=== PATIENT | male | born 1935 | race Caucasian/White ===

== ENCOUNTER 2018-02-16 14:45 | Outpatient (CLI) | payer MEDICARE, OTHER ==
--- NOTE | 2018-02-16 16:38 | XRAY Preliminary Report ---
Exam: XR THORACIC SPINE 2 VIEW IMPRESSION: 1. Progression of moderate degenerative disk disease and diffuse idiopathic skeletal hyperostosis. 2. Stable old mild wedging inferior two thirds of the mildly kyphotic spine. [facility] SITE ID: [id number]
--- NOTE | 2018-02-16 16:48 | XRAY Report ---
EXAM: THORACIC SPINE RADIOGRAPHY EXAM DATE: 02/16/2018 03:36 PM. CLINICAL HISTORY: Fall 6 months ago. Upper back and right shoulder pain. COMPARISON: Two-view chest x-ray 09/09/2014. TECHNIQUE: 2 views. FINDINGS: Alignment: Stable mild kyphosis centered at T7. Bones: Stable old mild anterior wedging inferior two-thirds thoracic spine. Greatest degree of wedging is T7 . No acute trabecular cortical disruption. Disks: Progression of moderate degenerative disk disease and diffuse idiopathic skeletal hyperostosis involving the inferior two-thirds of the thoracic spine, now with incomplete fusion inferior third. Extremely large osteophyte extending off the right side inferior endplate T9. Soft Tissues: Normal. The visualized lungs and cardiomediastinal silhouette are normal. IMPRESSION: 1. Progression of moderate degenerative disk disease and diffuse idiopathic skeletal hyperostosis. 2. Stable old mild wedging inferior two thirds of the mildly kyphotic spine. [facility] Referring Provider Line: [phone] SITE ID: [id number]
--- NOTE | 2018-02-16 16:53 | XRAY Preliminary Report ---
Exam: XR CERVICAL SPINE 2 VIEW IMPRESSION: 1. Note that the AP odontoid view(s) not diagnostic. If there is concern regarding a fracture,dedicat ed CT cervical spine should be considered. 2. Multilevel moderate degenerative disk disease, less than expected for age. [facility] SITE ID: [id number]
--- NOTE | 2018-02-16 17:00 | XRAY Preliminary Report ---
Exam: XR SHOULDER 3 VIEW RT IMPRESSION: 1. No posttraumatic bony abnormality. 2. Moderate degenerative changes. 3. Calcific tendinitis. Number for mild narrowing subacromial space raises the possibility of rotator cuff tendinopathy or tear. [facility] SITE ID: [id number]
--- NOTE | 2018-02-16 17:00 | XRAY Report ---
EXAM: CERVICAL SPINE RADIOGRAPHY EXAM DATE: 02/16/2018 03:35 PM. CLINICAL HISTORY: Fall 6 months ago. Neck pain. COMPARISONS: None. TECHNIQUE: 4 views. FINDINGS: Alignment: 3 mm degenerative anterior subluxation C4 on C5. Bones: The cervical vertebral bodies and posterior elements are well visualized from the skull base t hrough C7-T1. No fractures or bone lesions. Note that the AP odontoid views are not diagnostic. Disks: Moderate narrowing of the disk spaces with small osteophytes and minimal subcortical sclerosis throughout the cervical spine. Facets: Moderate degenerative changes right C3-C4 facet. Soft Tissues: Normal. No prevertebral soft tissue swelling. The visualized lung apices are clear. IMPRESSION: 1. Note that the AP odontoid view(s) is not diagnostic. If there is concern regarding a fracture, ded icated CT cervical spine should be considered. 2. Multilevel moderate degenerative disk disease, less than expected for age. [facility] Referring Provider Line: [phone] SITE ID: [id number]
--- NOTE | 2018-02-16 17:11 | XRAY Report ---
EXAM: RIGHT SHOULDER RADIOGRAPHY EXAM DATE: 02/16/2018 03:36 PM. CLINICAL HISTORY: Fall 6 months ago. Right shoulder pain. COMPARISON: None. TECHNIQUE: 3 views. FINDINGS: Bones: Osteopenia. No fracture or bone lesion. Joints: Small osteophytes with moderate subcortical sclerosis at the acromioclavicular joint. Type II acromion. Moderate osteophytes with mild subcortical sclerosis at the moderately narrowed glenohumer al joint. Moderate narrowing of the subacromial space. Soft tissues: The visualized hemithorax is unremarkable. Dystrophic calcifications within the suprasp inatus tendon. IMPRESSION: 1. No posttraumatic bony abnormality. 2. Moderate degenerative changes. 3. Calcific tendinitis. 4. Mild narrowing subacromial space raises the possibility of rotator cuff tendinopathy or tear. [facility] Referring Provider Line: [phone] SITE ID: [id number]
== END 2018-02-16 14:46 | disposition home or self-care (01) ==
LOC: DI 14:45
PROVIDERS: ATTEND Chiropractor
DX: M51.34 Other intervertebral disc degeneration, thoracic region (principal); M40.294 Other kyphosis, thoracic region; M50.31 Other cervical disc degeneration, high cervical region; M47.892 Other spondylosis, cervical region; M43.12 Spondylolisthesis, cervical region; M19.011 Primary osteoarthritis, right shoulder; M75.31 Calcific tendinitis of right shoulder
CPT/HCPCS: 72040; 72070

== ENCOUNTER 2019-03-01 08:00 | Outpatient (CLI) | payer MEDICARE, OTHER ==
[2019-03-01 10:04] LABS: ALBUMIN 3.9 g/dL (3.2-5.5); ALBUMIN/GLOBULIN RATIO 1.3 (1.0-2.2); ALKALINE PHOSPHATASE 68 IU/L (42-121); ALT ALANINE AMINOTRANSFERASE 23 IU/L (10-60); AST ASPARTATE AMINOTRANSFERASE 28 IU/L (10-42); BILIRUBIN,TOTAL 0.8 mg/dL (0.2-1.0); BUN - BLOOD UREA NITROGEN 17 mg/dL (6-20); CALCIUM 8.9 mg/dL (8.5-10.3); CARBON DIOXIDE - CO2 24 mmol/L (21-32); CHLORIDE 100 mmol/L (101-111); CHOLESTEROL 183 mg/dL; CREATININE 0.8 mg/dL (0.6-1.2); GFR - MDRD 93 (>89); GLUCOSE 98 mg/dL (70-100); HDL CHOLESTEROL 62 mg/dL; LDL CHOLESTEROL,CALCULATED 103 mg/dL; LDL/HDL RATIO 1.7 (<3.6); SODIUM 135 mmol/L (135-145); VLDL CHOLESTEROL 18 mg/dL
[2019-03-01 11:26] LABS: THYROID STIMULATING HORMONE 4.45 uIU/mL (0.34-5.60)
[2019-03-01 11:29] LABS: FREE T4 (FREE THYROXINE) 1.08 ng/dL (0.58-1.64)
== END 2019-03-01 23:59 | disposition home or self-care (01) ==
LOC: LAB 08:00
PROVIDERS: ATTEND Physician Assistant
DX: E53.8 Deficiency of other specified B group vitamins (principal); E03.9 Hypothyroidism, unspecified; E78.2 Mixed hyperlipidemia; I10 Essential (primary) hypertension; E55.9 Vitamin D deficiency, unspecified
CPT/HCPCS: 36415; 80053; 80061; 82306; 82607; 83721; 84439; 84443

== ENCOUNTER 2019-08-09 06:45 | Outpatient (CLI) | payer MEDICARE, OTHER | END 2019-08-09 06:46 | disposition critical access hospital (66) | LOC: EMS 06:45 | PROVIDERS: ATTEND Surgery | DX: R53.1 Weakness (principal); R06.02 Shortness of breath | CPT/HCPCS: A0425; A0427 ==

== ENCOUNTER 2019-08-09 06:58 | Observation (INO) | payer MEDICARE, OTHER ==
--- NOTE | 2019-08-09 07:24 | ED Physician Documentation ---
PD HPI DYSPNEA - Stated complaint Stated Complaint: PNA, NOT IMPROVING - Chief complaint Chief Complaint: Resp - History obtained from History obtained from: Patient, EMS - History of Present Illness Timing - onset: How many days ago (6) Timing - duration: Days (6) Timing - details: Gradual onset, Still present (Worsened even more in the last 2 days and today having considerable wheezing with noted hypoxia at home of 88 to 90% and general weakness. Denies chest pain or leg edema.) Inciting event(s): URI Improved by: Inhaler/neb, Sitting up Worsened by: Exertion, Coughing Similar symptoms before: Diagnosis (copd but does not have chronic dyspnea. Does not use home oxygen nor CPAP. Nebs BID keeps him stable. Has been awhile since ill with dyspnea.) Recently seen: Clinic (2 days ago, with Rx for Zpak and prednisone 40 mg day one then 20 mg daily.) Review of Systems Constitutional: reports: Chills, Myalgias, Fatigue (having difficulty getting himself up from bed this morning due to general weakness.). denies: Fever Nose: reports: Congestion. denies: Rhinorrhea / runny nose Throat: denies: Sore throat Cardiac: denies: Chest pain / pressure, Palpitations, Pedal edema, Calf pain Respiratory: reports: Dyspnea, Cough, Wheezing GI: reports: Nausea (mild with lessa ppetite). denies: Abdominal Pain, Vomiting, Diarrhea : denies: Dysuria, Frequency Skin: denies: Rash Neurologic: reports: Generalized weakness. denies: Focal weakness, Numbness, Near syncope, Confused, Altered mental status, Headache Psychiatric: denies: Anxiety Endocrine: denies: Weight loss Immunocompromised: denies: Immunocompromised PD PAST MEDICAL HISTORY - Past Medical History Cardiovascular: None Respiratory: Emphysema Endocrine/Autoimmune: HyPOthyroidism Psych: Anxiety - Past Surgical History Past Surgical History: Yes Ortho: Arthroscopic surgery - Present Medications Home Medications: Ambulatory Orders Medication Instructions Recorded Confirmed Levothyroxine Sodium [Tirosint] 125 mcg PO DAILY 01/29/13 08/09/19 Cyanocobalamin (Vitamin B-12) 2,500 mcg SL DAILY 02/28/13 02/28/13 [Vitamin B-12] predniSONE [Deltasone] 20 mg PO BID MDD x 5 days (on day 02/28/13 08/09/19 3 per Pt) Furosemide [Lasix] 40 mg PO DAILY 04/03/13 08/09/19 Potassium Chloride [Micro-K] 04/03/13 04/03/13 Arformoterol Tartrate [Brovana] 15 mcg NEB DAILY 08/09/19 08/09/19 Azithromycin 250 mg PO DAILY 08/09/19 08/09/19 Budesonide 1 inh INH BID 08/09/19 08/09/19 Ipratropium/Albuterol [Duoneb] 3 ml INH DAILY 08/09/19 08/09/19 Sertraline HCl 100 mg PO DAILY 08/09/19 08/09/19 clonazePAM [Clonazepam] 0.5 - 1 mg PO DAILY PRN 08/09/19 08/09/19 - Allergies Allergies/Adverse Reactions: Allergies Allergy/AdvReac Type Severity Reaction Status Date / Time No Known Drug Allergies Allergy Verified 01/29/13 17:51 - Social History Does the pt smoke?: No Smoking Status: Never smoker Does the pt drink ETOH?: Yes Does the pt have substance abuse?: No - Family History Family history: reports: CAD. denies: Sudden - Immunizations Immunizations are current?: Yes PD ED PE NORMAL - Vitals Vital signs reviewed: Yes - General General: Alert and oriented X 3, Well developed/nourished, Other (talking mostly complete sentences, but tachypneic and with audible wheezing and some accessory muscle use. ) - HEENT HEENT: Moist mucous membranes, Pharynx benign - Neck Neck: Supple, no meningeal sign, No adenopathy - Cardiac Cardiac: RRR, No murmur - Respiratory Respiratory: No: Clear bilaterally (coarse left side mid to lower and with diffuse moderate to marked wheezing holoexpiratory. ) - Abdomen Abdomen: Soft, Non tender - Male Male : Deferred - Rectal Rectal: Deferred - Back Back: No CVA TTP - Derm Derm: Normal color, Warm and dry - Extremities Extremities: No tenderness to palpate, Normal ROM s pain, No edema, No calf tenderness / cord - Neuro Neuro: Alert and oriented X 3, No motor deficit. No: Normal speech Eye Opening: Spontaneous Motor: Obeys Commands Verbal: Oriented GCS Score: 15 - Psych Psych: Normal mood Results - Vitals Vitals: Vital Signs - 24 hr 08/09/19 08/09/1919 07:03 07:30 07:54 Temperature 37.1 C Heart Rate 106 H 101 H 112 H Respiratory 15 22 27 H Rate Blood Pressure 113/75 114/59 L O2 Saturation 95 94 08/09/19 08/09/19 08/09/19 07:55 08:00 08:30 Temperature Heart Rate 99 97 107 H Respiratory 22 22 24 Rate Blood Pressure 114/59 L 108/65 94/77 O2 Saturation 97 94 95 08/09/19 08/09/19 09:00 09:11 Temperature Heart Rate 117 H 103 H Respiratory 24 28 H Rate Blood Pressure 127/62 127/62 O2 Saturation 89 L 92 Oxygen O2 Source Nasal cannula Oxygen Flow Rate 2 - EKG (time done) 07:04 Rate: Rate (enter#) (107) Rhythm: Sinus tachycardia [place]: Normal Intervals: Wide QRS QRS: Normal Ischemia: Normal ST segments, Non specific changes. No: ST elevation c/w ischemia Compare to prior EKG: Unchanged from prior EKG - Labs Labs: Laboratory Tests 08/09/19 08/09/19 08/09/19 08:08 08:08 08:08 WBC 13.4 H RBC 3.83 L Hgb 12.5 L Hct 37.7 L MCV 98.4 H MCH 32.6 H MCHC 33.2 RDW 13.5 Plt Count 240 MPV 9.4 Neut # (Auto) 11.5 H Lymph # (Auto) 0.8 L [place] # (Auto) 1.0 Eos # (Auto) 0.0 Baso # (Auto) 0.0 Absolute Nucleated RBC 0.00 Nucleated RBC % 0.0 Sodium 135 Potassium 3.8 Chloride 96 L Carbon Dioxide 31 Anion Gap 8.0 BUN 20 Creatinine 0.9 Estimated GFR (MDRD) 81 L Glucose 106 H Lactic Acid Calcium 8.6 Total Bilirubin 0.5 AST 41 ALT 36 Alkaline Phosphatase 51 Troponin I High Sens 35.8 H* B-Natriuretic Peptide Total Protein 6.9 Albumin 3.9 Globulin 3.0 Albumin/Globulin Ratio 1.3 Lipase 26 08/09/19 08/09/19 08:08 08:08 WBC RBC Hgb Hct MCV MCH MCHC RDW Plt Count MPV Neut # (Auto) Lymph # (Auto) [place] # (Auto) Eos # (Auto) Baso # (Auto) Absolute Nucleated RBC Nucleated RBC % Sodium Potassium Chloride Carbon Dioxide Anion Gap BUN Creatinine Estimated GFR (MDRD) Glucose Lactic Acid 1.0 Calcium Total Bilirubin AST ALT Alkaline Phosphatase Troponin I High Sens B-Natriuretic Peptide 273 H Total Protein Albumin Globulin Albumin/Globulin Ratio Lipase - Rads (name of study) chest xray Radiology: Prelim report reviewed, See rad report (no acute infiltrates, no change from 2014) PD MEDICAL DECISION MAKING - ED course Complexity details: reviewed results, re-evaluated patient (wheezing decreased and no accessory muscle use, more comfortable. Still wheezing though and sats 89 % on RA after 3 nebs and meds. ), considered differential (He has coarse sounds bilaterally but more on the left. There is diffuse moderate wheezing on both sides. He has some partial sentence conversational dyspnea and tachypnea. There is no accessory muscle use and no tripoding. He did get several nebulizer treatments here in the ER and is feeling improved breathing but still has considerable wheezing. I think it is evolving not as lower tract infection with general coarse sounds. This is despite Zithromax for 1-1/2 days and initiating prednisone 2 days ago. I think this will take longer resolution than just in the ER. Currently he is still 89% on room air but mid 90s saturations on just nasal cannula.), d/w patient, d/w client service consultant (Hospitalist) Departure - Departure Disposition: 66 [facility] DC/Xfer Clinical Impression: Hypoxia, Acute exacerbation of COPD with asthma, Lower respiratory infection Dyspnea Qualifiers: Dyspnea type: shortness of breath Qualified Code(s): R06.02 - Shortness of breath Condition: Stable Record reviewed to determine appropriate education?: Yes Discharge Date/Time: 08/09/19 10:24
[2019-08-09] MEDS ORDERED: IPRATROPIUM/ALBUTEROL 3 ML NEB INH STA (07:41)
[2019-08-09] MEDS ORDERED: DEXAMETHASONE 10 MG/ML VIAL IVP STA (07:42)
[2019-08-09] MEDS ORDERED: cefTRIAXone 1 GM VIAL IVP STA (07:43)
[2019-08-09] MEDS ORDERED: ALBUTEROL NEB 2.5 MG/3 ML INH STA ×2 (08:05→08:50)
[2019-08-09 08:14] LABS: BASOPHILS % (AUTO) 0.1 %; EOSINOPHILS % (AUTO) 0.1 %; HGB - HEMOGLOBIN 12.5 g/dL (14.0-18.0); LYMPHOCYTES # (AUTO) 0.8 10^3/uL (1.5-3.5); MEAN CORPUSCULAR HEMOGLOBIN 32.6 pg (27.0-31.0); MEAN CORPUSCULAR HGB CONC 33.2 g/dL (32.0-36.0); MEAN CORPUSCULAR VOLUME 98.4 fL (80.0-94.0); MEAN PLATELET VOLUME 9.4 fL (7.4-11.4); MONOCYTES % (AUTO) 7.2 %; NEUTROPHILS # (AUTO) 11.5 10^3/uL (1.5-6.6); NEUTROPHILS % (AUTO) 86.2 %; PLT - PLATELET COUNT 240 10^3/uL (130-450); RED BLOOD COUNT 3.83 10^6/uL (4.70-6.10); RED CELL DISTRIBUTION WIDTH 13.5 % (12.0-15.0); WHITE BLOOD COUNT 13.4 x10^3/uL (4.8-10.8)
[2019-08-09 08:28] LABS: ALBUMIN 3.9 g/dL (3.2-5.5); ALBUMIN/GLOBULIN RATIO 1.3 (1.0-2.2); BILIRUBIN,TOTAL 0.5 mg/dL (0.2-1.0); CALCIUM 8.6 mg/dL (8.5-10.3); CREATININE 0.9 mg/dL (0.6-1.2); TOTAL PROTEIN 6.9 g/dL (6.7-8.2)
--- NOTE | 2019-08-09 08:44 | XRAY Report ---
Reason: chest pain Procedure Date: 08/09/2019 Accession Number: [id number] / [id number] Procedure: XR - Chest 1 View X-Ray CPT Code: 88125 Final Report FULL RESULT: EXAM: CHEST RADIOGRAPHY 1 VIEW EXAM DATE: 08/09/2019. CLINICAL HISTORY: Chest pain. COMPARISON: PA and lateral chest done 09/09/2014. TECHNIQUE: AP upright portable chest at 0807, 2 images. FINDINGS: Lungs/Pleura: Normal vasculature. The lungs are clear. No pleural fluid or pneumothorax. Mild right diaphragmatic elevation, probably from an eventration, is unchanged. Mediastinum: Normal cardiac and mediastinal contours. Bones: Mild degenerative changes of the spine. If he had anterior left fourth rib. IMPRESSION: No acute abnormality. No change from 09/09/2014. [facility]
[2019-08-09] MEDS ORDERED: ACETAMINOPHEN 325 MG TABLET PO PRN (09:16)
[2019-08-09] MEDS ORDERED: ONDANSETRON 4 MG/2 ML VIAL IVP PRN (09:16)
[2019-08-09] MEDS ORDERED: AZITHROMYCIN 250 MG TABLET PO STA (09:19)
[2019-08-09] MEDS ORDERED: ALBUTEROL NEB 2.5 MG/3 ML INH PRN (09:21)
--- NOTE | 2019-08-09 10:09 | HISTORY & PHYSICAL EXAMINATION ---
Chief Complaint - Chief Complaint Chief Complaint: shortness of breath History of Present Illness - History of Present Illness HPI Comment/Other: Mr. Vieyra is a 84-yrs-old male with a PMH significant for COPD, hypothyroidism, anxiety, who present ER complain of cough, wheezing and shortness of breath. pt report he has been sick for over a week. He think he got sickness from his grandchildren. Pt report he had lots of cough with yellowish sputum, felt shortness of breath and wheezing, special on exertion. he report he had lower degree of fever and chill couple days ago. He denies fever now. He visited his PCP and he was prescribed Prednisone and antibiotics (pt did not remember the antibiotics name), but he did not think he felt better after he took these meds. his CXR today was unremarkable. Route lab test in ER reveals elevated WBC at 13, slight elevated Troponin. Pt denies chest pain, palpitation, hx of CAD. In ER, pt is afebrile, slight tachycardia at HR 106, pt request 2 liter of O2 at 94% sat, RR is 22. pt is admitted for COPD exacerbation. History - Past Medical History Respiratory: reports: Emphysema Endocrine/Autoimmune: reports: HyPOthyroidism Psych: reports: Anxiety MRSA Hx?: No - Past Surgical History Ortho: reports: Arthroscopic surgery - Family & Social History Family History: Mother: , COPD/Emphysema, Father: , Cancer Family History Comment/Other: pt report both his parents had hx of heavy cigarette smoker. her mother from COPD, her father from cancer. he had three children. Social History Notes: pt report he smoker over 30 yrs, he denies alcohol and drug issue. he is living [facility] Status: Full Code (pt report he request CPR but no incubation) Meds/Allgy - Home Medications Home Medications: Ambulatory Orders Medication Instructions Recorded Confirmed Levothyroxine Sodium [Tirosint] 125 mcg PO DAILY 01/29/13 08/09/19 Cyanocobalamin (Vitamin B-12) 2,500 mcg SL DAILY 02/28/13 02/28/13 [Vitamin B-12] predniSONE [Deltasone] 20 mg PO BID MDD x 5 days (on day 02/28/13 08/09/19 3 per Pt) Furosemide [Lasix] 40 mg PO DAILY 04/03/13 08/09/19 Potassium Chloride [Micro-K] 04/03/13 04/03/13 Arformoterol Tartrate [Brovana] 15 mcg NEB DAILY 08/09/19 08/09/19 Azithromycin 250 mg PO DAILY 08/09/19 08/09/19 Budesonide 1 inh INH BID 08/09/19 08/09/19 Ipratropium/Albuterol [Duoneb] 3 ml INH DAILY 08/09/19 08/09/19 Sertraline HCl 100 mg PO DAILY 08/09/19 08/09/19 clonazePAM [Clonazepam] 0.5 - 1 mg PO DAILY PRN 08/09/19 08/09/19 - Allergies Allergies/Adverse Reactions: Allergies Allergy/AdvReac Type Severity Reaction Status Date / Time No Known Drug Allergies Allergy Verified 01/29/13 17:51 Review of Systems - Constitutional Constitutional: reports: Fever, Chills. denies: Fatigue, Malaise, Weakness, Poor appetite, Diaphoresis, Night sweats, Weight gain, Weight loss - Eyes Eyes: denies: Pain, Irritation, Amaurosis, Spots in vision, Field loss, Vision loss, Dipolpia - Ears, Nose & Throat Ears, Nose & Throat: denies: Ear pain, Tinnitus, Vertigo, Nasal discharge, Nasal congestion, Postnasal drainage, Dentures, Sore throat, Hoarseness, Mouth le sions - Cardiovascular Cariovascular: reports: Exertional dyspnea. denies: Irregular heart rate, Palpitations, Chest pain, Edema, Lightheadedness, Syncope - Respiratory Respiratory: reports: Cough, Sputum production, Wheezing, SOB at rest, SOB with exertion. denies: Snoring, Hemoptysis, Orthopnea, Apnea, Stridor, Pleuritic pain - Gastrointestinal Gastrointestinal: denies: Abdominal pain, Abdominal distention, Diarrhea, Change in bowel habits, Rectal bleeding, Black stools, Bloody stools, Nausea, Vomiting, Beny blood emesis, Coffee grounds emesis, Reflux/heartburn - Genitourinary Genitourinary: denies: Dysuria, Frequency, Urgency, Hematuria, Incontinence, Flank pain, Nocturia, Urethral discharge - Musculoskeletal Musculoskeletal: denies: Muscle pain, Back pain, Muscle aches, Stiffness, Limite d range of motion, Muscle weakness, Gout, Joint pain - Integumentary Integumentary: denies: Rash, Pruritis, Lesions, Dryness, Lumps, Acne, Pigment changes, Nail changes - Neurological Neurological: denies: General weakness, Focal weakness, Headache, Dizziness, Numbness, Memory problems, Pre-existing deficit, Abnormal gait, Seizures, Incoordination, Slurred speech - Psychiatric Psychiatric: denies: Depression, Anxiety, Suicidal, Delusions, Hallucinations, Homicidal - Endocrine Endocrine: denies: Polyuria, Polydypsia, Polyphagia, Intolerance to cold - Hematologic/Lymphatic Hematologic/Lymphatic: denies: Anemia, Bruising, Petechiae, Blood clots, Lymphadenopathy, Bleeding tendencies, Recurrent infections Exam - Vital Signs Reviewed Vital Signs: Yes Vital Signs: Vital Signs x48h Temp Pulse Resp BP Pulse Ox 08/09/19 10:06 102 H 27 H 113/59 L 92 08/09/19 09:26 100 21 08/09/19 09:11 103 H 28 H 127/62 92 08/09/19 09:00 117 H 24 127/62 89 L 08/09/19 08:30 107 H 24 94/77 95 08/09/19 08:00 97 22 108/65 94 08/09/19 07:55 99 22 114/59 L 97 08/09/19 07:54 112 H 27 H 08/09/19 07:30 101 H 22 114/59 L 94 08/09/19 07:03 37.1 C 106 H 15 113/75 95 - Physical Exam General Appearance: positive: Alert, Mild distress. negative: Lethargic Eyes Bilateral: positive: Normal inspection, PERRL, EOMI, No lid inflammation ENT: positive: ENT inspection nml, Pharynx nml, No signs of dehydration. negative: Purulent nasal drainage Neck: positive: Nml inspection, Thyroid nml, No JVD, Trachea midline. negative: Thyromegaly, Lymphadenopathy (R), Lymphadenopathy (L), Stiff neck, Tracheal deviation Respiratory: positive: Chest non-tender, No respiratory distress, Wheezes Cardiovascular: positive: Regular rate & rhythm, No murmur, No gallop. n egative: Irregularly irregular, Extrasystoles, Tachycardia, Bradycardia, JVD present, Systolic murmur, Diastolic murmur Peripheral Pulses: positive: 2+ Abdomen: positive: Non-tender, No organomegaly, Nml bowel sounds, No distention. negative: Tenderness, Guarding, Rebound Back: positive: Nml inspection. negative: CVA tenderness (R), CVA tenderness (L) Skin: positive: Color nml, No rash, Warm, Dry. negative: Cyanosis, Diaphoresis, Pallor Extremities: positive: Non-tender, Full ROM, Nml appearance. negative: Calf tenderness, Leanne's sign/cords Neurologic/Psychiatric: positive: Oriented x3, Motor nml, Sensation nml, Mood/affect nml. negative: Weakness, Sensory loss, Facial droop, Slurred/abnml speech, Depressed mood/affect Sepsis Event Note (H) - Evaluation Current Stage of Sepsis: Ruled out Conclusion/Plan - Problem List (1) COPD exacerbation Conclusion/Plan: pt present wheezing, shortness of breath, cough with yellowish sputum, and hypoxia requiring O2 supplement, hx of COPD and smoker. solu-medro breath treatment, duoneb PRN, pulmicort and singular start with Azithyromycin, pt report he had fever, chill at home, and elevated WBC supplement of O2 as needed (2) Hypothyroidism Conclusion/Plan: reconcile home meds after verified by pharmacy, check TSH (3) Anxiety Conclusion/Plan: resume home clonazepam. (4) Full code status Conclusion/Plan: pt request CPR but without incubation - Lab Results Fish Bones: 08/09/19 08:08 08/09/19 08:08 Core Measures - Anticipated LOS I expect patient to be DC'd or transferred within 96 hours.: Yes - DVT/VTE - Prophylaxis VTE/DVT Device ordered at admit?: Yes VTE/DVT Prophylaxis med ordered at admit?: Yes
[2019-08-09] MEDS: methylPREDNISolone SUCCINATE 40 MG/ML VIAL IVP SCH ×3 (11:29→21:07)
[2019-08-09] MEDS ORDERED: LORazepam 1 MG TABLET PO PRN (12:10)
[2019-08-09] MEDS ORDERED: clonazePAM 0.5 MG TABLET PO PRN (13:20)
[2019-08-09] MEDS: SODIUM CHLORIDE FLUSH 0.9% 10 ML SYRINGE IVP PRN ×2 (14:13→21:07)
[2019-08-09] MEDS: IPRATROPIUM/ALBUTEROL 3 ML NEB INH PRN (16:30)
[2019-08-09] MEDS: SODIUM CHLORIDE FLUSH 0.9% 10 ML SYRINGE IVP SCH (17:43)
[2019-08-09] MEDS: BUDESONIDE 0.5 MG/2 ML NEB INH SCH (20:21)
[2019-08-09] MEDS ORDERED: MONTELUKAST 10 MG TABLET PO SCH (21:00)
[2019-08-09] MEDS: FAMOTIDINE 20 MG TABLET PO SCH (21:07)
[2019-08-10] MEDS ORDERED: hydrALAZINE INJ 20 MG/ML VIAL IVP PRN (00:25)
[2019-08-10] MEDS: SODIUM CHLORIDE FLUSH 0.9% 10 ML SYRINGE IVP SCH ×2 (01:37→09:14)
[2019-08-10 05:21] LABS: BASOPHILS % (AUTO) 0.1 %; EOSINOPHILS % (AUTO) 0.1 %; HGB - HEMOGLOBIN 11.8 g/dL (14.0-18.0); LYMPHOCYTES # (AUTO) 0.7 10^3/uL (1.5-3.5); MEAN CORPUSCULAR HEMOGLOBIN 32.5 pg (27.0-31.0); MEAN CORPUSCULAR VOLUME 98.6 fL (80.0-94.0); MEAN PLATELET VOLUME 9.8 fL (7.4-11.4); MONOCYTES # (AUTO) 0.3 10^3/uL (0.0-1.0); MONOCYTES % (AUTO) 2.8 %; NEUTROPHILS # (AUTO) 8.2 10^3/uL (1.5-6.6); NEUTROPHILS % (AUTO) 88.6 %; PLT - PLATELET COUNT 248 10^3/uL (130-450); RED BLOOD COUNT 3.63 10^6/uL (4.70-6.10); RED CELL DISTRIBUTION WIDTH 13.2 % (12.0-15.0); WHITE BLOOD COUNT 9.3 x10^3/uL (4.8-10.8)
[2019-08-10 05:25] LABS: CALCIUM 8.3 mg/dL (8.5-10.3); CREATININE 0.7 mg/dL (0.6-1.2); MAGNESIUM 2.2 mg/dL (1.7-2.8)
[2019-08-10] MEDS: methylPREDNISolone SUCCINATE 40 MG/ML VIAL IVP SCH (06:28)
[2019-08-10] MEDS ORDERED: LEVOTHYROXINE 125 MCG TABLET PO SCH (07:00)
[2019-08-10] MEDS: IPRATROPIUM/ALBUTEROL 3 ML NEB INH PRN ×2 (07:11→11:06)
[2019-08-10] MEDS: BUDESONIDE 0.5 MG/2 ML NEB INH SCH (07:11)
[2019-08-10] MEDS ORDERED: SERTRALINE 50 MG TABLET PO SCH (09:00)
[2019-08-10] MEDS ORDERED: ENOXAPARIN 40 MG/0.4 ML SYRINGE SUBQ SCH (09:00)
[2019-08-10] MEDS ORDERED: AZITHROMYCIN 250 MG TABLET PO SCH (09:00)
[2019-08-10] MEDS: FAMOTIDINE 20 MG TABLET PO SCH (09:14)
--- NOTE | 2019-08-10 11:09 | Discharge Plan ---
Discharge Plan Problem Reviewed?: Yes Disposition: Home, Self Care Condition: Stable Prescriptions: Azithromycin [Zithromax] 250 mg PO DAILY #2 tablet Diet: Low Sodium Activity Restrictions: Activity as Tolerated Shower Restrictions: Yes (stand by assist) Driving Restrictions: Yes (no driving) Instruction Topics: Azithromycin tablets, COPD Health Concerns: You presented to our emergency room with coughing, wheezing, and shortness of breath. You have known COPD and already have chronic shortness of breath, and wheezing. You take medicine for that. Unfortunately 1 of your grandchildren got sick with a cold and gave you that cold. Even though you had seen your primary care provider and had gotten steroids and antibiotics you were still coughing and wheezing tremendously. In our emergency room you do not have pneumonia. You have a bronchitis. You have responded to intravenous steroids, and nebulizers with this. Plan of Treatment: 1. Finish 2 more days of azithromycin once a day 2. Finish 2 more days of prednisone 20 mg twice a day 3. Continue your DuoNeb, Brovana, and inhaled steroids 4. Please see your primary care provider in follow-up next week. 5. We would strongly suggest that you be considered for pulmonary rehab. Pulmonary rehab is a an exercise program that helps people with emphysema. It helps him walk longer, do more activities. Ask your primary care provider if you are a candidate for referral. Care Goals: To be able to walk without shortness of breath Assessment: Patient and both expressed understanding of goals. Follow-Up Care: [facility] - Pulmonary No Smoking: If you smoke, Please STOP! Call for help. Follow-up with: Debby Ashley PA [Primary Care Provider] -
[2019-08-10 12:45] VITALS: BP 119/56
--- NOTE | 2019-08-10 19:26 | DISCHARGE SUMMARY ---
Physician: Janny Childress MD DATE OF ADMISSION: 08/09/2019 DATE OF DISCHARGE: 08/10/2019 DISCHARGE DIAGNOSES: 1. Chronic obstructive pulmonary disease exacerbation. 2. Hypothyroidism. 3. Anxiety. DISCHARGE MEDICATIONS: 1. Brovana via nebulizer twice a day. 2. Azithromycin 250 mg tablet p.o. daily for just 2 more days. 3. Prednisone 20 mg p.o. b.i.d. for 2 more days. 4. Budesonide via inhaler b.i.d. 5. Clonazepam 0.5-1 mg p.o. daily p.r.n. anxiety. 6. Vitamin B12 2500 mcg daily. 7. Lasix 40 mg daily. 8. DuoNeb via nebulizer q.i.d. p.r.n. 9. Levothyroxine 125 mcg daily. 10. K-Dur 20 mEq daily. 11. Sertraline 100 mg daily. PRINCIPAL PROCEDURES: 1. Chest x-ray with no acute abnormality. No change from 09/09/2014. Normal cardiac and mediastina l silhouettes and lungs are clear. 2. Sputum culture preliminary results are pending. Final will need to be reviewed. Few squamous ep ithelial cells, moderate gram-negative bacilli, few gram-negative cocci, few gram positive cocci. HOSPITAL COURSE: Mr. Vieyra is an 84-year-old gentleman who has COPD, hypothyroidism, anxiety and pres ents at the Emergency Room with cough, wheezing, shortness of breath. He has been sick for over a we ek and his grandchildren are sick. He thinks he got a cold from them because they were sick. He had cough productive of yellow phlegm, felt short of breath and wheezing was getting worse, especially w ith exertion. He had a little bit of fever and chills a couple of days ago. None now. He saw his [facility] provider who prescribed him prednisone and antibiotics. He did not remember the antibiot ic name but he did not feel better after taking these medications. In the Emergency Room, white cell count was slightly elevated at 13,000. His troponin was 35.8. BNP 273. His pulse was slightly dee vated at 106. He was 95% saturated on 2 liters. After being in the Emergency Room for a couple of hours, he did not respond to nebulizers and steroid s. As such, he was placed in observation. The rest of his troponins were negative. By the next mor kei, he was getting up out of bed and walking into the bathroom by himself. We did ask him to stop doing that, because he appears to be such a kyphotic, frail, elderly gentleman needing a walker but dallas roberson would just ignore us. On the day of discharge, his watched him get up and walk. She felt satisfied that he could go h ome but she was exasperated and said "he is a handful." He is bent over with kyphosis. He has a nasa l tone of voice. Cough is deep and occasionally productive of yellow phlegm but there is no tachypne a or use of accessory muscles. Cough is not spasmodic. PHYSICAL EXAMINATION: LUNGS: Coarse upper airway sounds but no rhonchi, wheezing or crackles at this time. He has a regul ar rate and rhythm. ABDOMEN: Benign. EXTREMITIES: Have no edema. He is discharged to complete his azithromycin therapy. Two more days of prednisone. No change in hi s nebulizers. We have asked him to follow up with his Primary Care provider, DAVID Pitts, in the next 1-2 days. I asked him if he would be willing to consider pulmonary rehabilitation. Dallas roberson is reluctant but his strongly encouraged him and as such, I have asked Pulmonary Rehabilitatio stephanie to see him in evaluation in the outpatient setting. TD: 08/10/2019 17:46
== END 2019-08-10 13:16 | disposition home or self-care (01) ==
LOC: EDUNIT# → ED 06:58 → MS2 09:16
PROVIDERS: ADMIT Nurse Practitioner Gerontology; ATTEND Specialist
DX: J43.9 Emphysema, unspecified (principal); R09.02 Hypoxemia; E03.9 Hypothyroidism, unspecified; F41.9 Anxiety disorder, unspecified; M40.209 Unspecified kyphosis, site unspecified; Z87.891 Personal history of nicotine dependence; Z79.52 Long term (current) use of systemic steroids; Z79.51 Long term (current) use of inhaled steroids; Z79.899 Other long term (current) drug therapy
CPT/HCPCS: 36415; 71045; 80048; 80053; 83605; 83690; 83735; 83880; 84443; 84484; 85025; 87070; 87077; 87181; 87205; 87275; 87276; 93005; 94640; 96372; 96374; 96375; 96376; 99284; 99285; A9270; G0378; J1650; J7626

== ENCOUNTER 2019-09-05 12:40 | Outpatient (CLI) | payer MEDICARE, OTHER ==
--- NOTE | 2019-09-05 16:39 | XRAY Report ---
Reason: ACUTE EXACERBATION OF COPD Procedure Date: 09/05/2019 Accession Number: [id number] / [id number] Procedure: XR - Chest 2 View X-Ray CPT Code: 67927 Final Report FULL RESULT: EXAM: CHEST RADIOGRAPHY. EXAM DATE: 09/05/2019 12:55 PM. CLINICAL HISTORY: Acute exacerbation of chronic obstructive pulmonary disease. COMPARISON: CHEST 1 VIEW 08/09/2019 8:07 AM. CHEST 2 VIEW PA/LAT 09/09/2014 5:03 PM. TECHNIQUE: 2 views. FINDINGS: Lungs/Pleura: No acute consolidations. No pleural fluid collections. No lung masses. Borderline hyperinflation. Mediastinum: Heart and mediastinal contours are within normal limits. Other: None. IMPRESSION: No acute consolidations detected. RADIA
== END 2019-09-05 12:41 | disposition home or self-care (01) ==
LOC: DI 12:40
PROVIDERS: ATTEND Nurse Practitioner Family
DX: J44.1 Chronic obstructive pulmonary disease with (acute) exacerbation (principal)
CPT/HCPCS: 71046; 93005; 94060

== ENCOUNTER 2019-09-05 12:41 | Outpatient (CLI) | payer MEDICARE, OTHER ==
[~2019-09-05 12:41] MED LIST: ALBUTEROL NEB 2.5 MG/3 ML INH SCH
== END 2019-09-05 12:42 | disposition home or self-care (01) ==
LOC: RT 12:41
PROVIDERS: ATTEND Physician Assistant
DX: J44.9 Chronic obstructive pulmonary disease, unspecified (principal)
CPT/HCPCS: 93005; 94060

== ENCOUNTER 2021-02-05 16:39 | Emergency (ER) | payer MEDICARE, OTHER ==
[2021-02-05] MEDS ORDERED: diltiaZEM INJ 5 MG/ML VIAL IVP STA (16:56)
[2021-02-05 16:57] LABS: BASOPHILS % (AUTO) 0.3 %; EOSINOPHILS # (AUTO) 0.1 10^3/uL (0.0-0.7); EOSINOPHILS % (AUTO) 1.3 %; HCT - HEMATOCRIT 39.6 % (42.0-52.0); LYMPHOCYTES # (AUTO) 1.6 10^3/uL (1.5-3.5); LYMPHOCYTES % (AUTO) 18.5 %; MEAN CORPUSCULAR HEMOGLOBIN 32.8 pg (27.0-31.0); MEAN CORPUSCULAR HGB CONC 32.8 g/dL (32.0-36.0); MEAN PLATELET VOLUME 10.2 fL (7.4-11.4); MONOCYTES # (AUTO) 0.8 10^3/uL (0.0-1.0); MONOCYTES % (AUTO) 9.3 %; NEUTROPHILS % (AUTO) 70.3 %; PLT - PLATELET COUNT 216 10^3/uL (130-450); RED BLOOD COUNT 3.96 10^6/uL (4.70-6.10); WHITE BLOOD COUNT 8.6 x10^3/uL (4.8-10.8)
--- NOTE | 2021-02-05 16:57 | ED Physician Documentation ---
PD HPI CHEST PAIN - Stated complaint Stated Complaint: SOA,ABNORMAL EKG - Chief complaint Chief Complaint: Cardiac - History obtained from History obtained from: Patient, Family - Additional information Additional information: 85-year-old gentleman with history of COPD but no history of heart problems went to his physician today with 2 weeks of rapid palpitations and increased over normal shortness of breath associated with pedal edema and some orthopnea as well as fatigue. He was diagnosed with A. fib with RVR which she has never had before and referred here for further evaluation and treatment. He has been having no chest pain. Review of Systems Cardiac: reports: Palpitations, Pedal edema. denies: Chest pain / pressure, Calf pain Respiratory: reports: Dyspnea. denies: Cough PD PAST MEDICAL HISTORY - Past Medical History Cardiovascular: None Respiratory: Emphysema Neuro: Peripheral neuropathy Endocrine/Autoimmune: HyPOthyroidism GI: None : Nocturia, Frequency Psych: Anxiety Musculoskeletal: Osteoarthritis Derm: Other - Past Surgical History Past Surgical History: Yes Ortho: Arthroscopic surgery - Present Medications Home Medications: Ambulatory Orders Medication Instructions Recorded Confirmed Levothyroxine Sodium [Tirosint] 125 mcg PO DAILY 01/29/13 02/05/21 Cyanocobalamin (Vitamin B-12) 2,500 mcg SL DAILY 02/28/13 02/05/21 [Vitamin B-12] Furosemide [Lasix] 40 mg PO DAILY 04/03/13 02/05/21 Arformoterol Tartrate [Brovana] 15 mcg NEB DAILY 08/09/19 02/05/21 Budesonide 1 inh INH BID 08/09/19 02/05/21 Ipratropium/Albuterol [Duoneb] 3 ml INH DAILY 08/09/19 02/05/21 Sertraline HCl 100 mg PO DAILY 08/09/19 02/05/21 clonazePAM [Clonazepam] 0.5 - 1 mg PO DAILY PRN 08/09/19 02/05/21 Potassium Chloride [K-Dur] 20 meq PO DAILY 08/10/19 02/05/21 Cholecalciferol (Vitamin D3) 1 cap PO DAILY PM 02/05/21 02/05/21 [Vitamin D3] Furosemide [Lasix] 40 mg PO BID #4 tablet 02/05/21 diltiaZEM CD [Cardizem Cd] 120 mg PO DAILY #30 02/05/21 - Allergies Allergies/Adverse Reactions: Allergies Allergy/AdvReac Type Severity Reaction Status Date / Time No Known Drug Allergies Allergy Verified 01/29/13 17:51 - Social History Does the pt smoke?: No Smoking Status: Never smoker Does the pt drink ETOH?: Yes Does the pt have substance abuse?: No - Immunizations Immunizations are current?: Yes - POLST POLST Status: Full Code (pt report he request CPR but no incubation) PD ED PE NORMAL - Vitals Vital signs reviewed: Yes - General General: Alert and oriented X 3, No acute distress - HEENT HEENT: PERRL, EOMI - Neck Neck: Supple, no meningeal sign, No bony TTP - Cardiac Cardiac: Other (rapid/ irregular without murmur) - Respiratory Respiratory: Clear bilaterally - Abdomen Abdomen: Non tender - Back Back: No CVA TTP, No spinal TTP - Derm Derm: Normal color, Warm and dry - Extremities Extremities: Other (2+ pitting pedal edema bilaterally) - Neuro Neuro: Alert and oriented X 3, Normal speech Results - Vitals Vitals: Vital Signs - 24 hr 02/05/21 02/05/21 02/05/21 16:42 17:11 17:12 Temperature 36.1 C L Heart Rate 125 H 98 94 Respiratory 28 H Rate Blood Pressure 132/112 H 93/72 98/72 O2 Saturation 97 02/05/21 02/05/21 02/05/21 17:15 17:20 17:35 Temperature Heart Rate 84 92 82 Respiratory Rate Blood Pressure 97/76 100/77 106/78 O2 Saturation 02/05/21 17:47 Temperature Heart Rate 97 Respiratory 24 Rate Blood Pressure 106/78 O2 Saturation 96 Oxygen O2 Source Room air - EKG (time done) 1646 Rate: Rate (enter#) (123) Rhythm: Atrial fibrillation (w pvcs) [place]: Normal Ischemia: Q waves (anterior), Non specific changes Computer interpretation: Agree with computer - Labs Labs: Laboratory Tests 02/05/21 02/05/21 02/05/21 16:51 16:51 16:51 WBC 8.6 RBC 3.96 L Hgb 13.0 L Hct 39.6 L MCV 100.0 H MCH 32.8 H MCHC 32.8 RDW 13.0 Plt Count 216 MPV 10.2 Neut # (Auto) 6.0 Lymph # (Auto) 1.6 [place] # (Auto) 0.8 Eos # (Auto) 0.1 Baso # (Auto) 0.0 Absolute Nucleated RBC 0.00 Nucleated RBC % 0.0 Sodium 135 Potassium 4.1 Chloride 100 L Carbon Dioxide 26 Anion Gap 9.0 BUN 25 H Creatinine 0.8 Estimated GFR (MDRD) 92 Glucose 100 Calcium 9.2 Total Bilirubin 1.0 AST 48 H ALT 63 H Alkaline Phosphatase 77 Troponin I High Sens 39.3 H* B-Natriuretic Peptide Total Protein 7.0 Albumin 4.1 Globulin 2.9 Albumin/Globulin Ratio 1.4 Lipase 24 02/05/21 16:51 WBC RBC Hgb Hct MCV MCH MCHC RDW Plt Count MPV Neut # (Auto) Lymph # (Auto) [place] # (Auto) Eos # (Auto) Baso # (Auto) Absolute Nucleated RBC Nucleated RBC % Sodium Potassium Chloride Carbon Dioxide Anion Gap BUN Creatinine Estimated GFR (MDRD) Glucose Calcium Total Bilirubin AST ALT Alkaline Phosphatase Troponin I High Sens B-Natriuretic Peptide 416 H Total Protein Albumin Globulin Albumin/Globulin Ratio Lipase PD MEDICAL DECISION MAKING - ED course ED course: 85-year-old gentleman presents with new episode onset A. fib with RVR. Probably been going on for couple weeks. He has evidence of mild heart failure. That said he is certainly not in extremis. And his lungs are actually relatively clear. Offered to keep him in the hospital for observation and expedited echocardiogram. He said he would feel more comfortable going home which given the lack of hypoxemia is not unreasonable. His heart rate was in the 70s after single 10 mg dose of IV diltiazem. Departure - Departure Disposition: 01 Home, Self Care Clinical Impression: New onset a-fib Congestive heart failure Qualifiers: Heart failure type: unspecified Heart failure chronicity: acute Qualified Code(s): I50.9 - Heart failure, unspecified Condition: Good Record reviewed to determine appropriate education?: Yes Instructions: Atrial Fibrillation Dc Prescriptions: diltiaZEM CD [Cardizem Cd] 120 mg PO DAILY #30 Furosemide [Lasix] 40 mg PO BID #4 tablet Comments: Call your doctor on Monday, you will need an echocardiogram and reexamination with them. Return if worsening. Lasix for the next 2 days, I am writing a prescription for a few extra pills. Also starting you on medication for your heart rate. Discuss anticoagulation with your physician as well. Take a baby aspirin a day until you follow-up with your physician. Discharge Date/Time: 02/05/21 18:08
[2021-02-05 17:15] LABS: ALBUMIN 4.1 g/dL (3.2-5.5); ALBUMIN/GLOBULIN RATIO 1.4 (1.0-2.2); CALCIUM 9.2 mg/dL (8.5-10.3); CREATININE 0.8 mg/dL (0.6-1.2); POTASSIUM 4.1 mmol/L (3.5-5.0)
--- NOTE | 2021-02-05 17:22 | XRAY Report ---
PROCEDURE: Chest 1 View X-Ray INDICATIONS: Chest Pain TECHNIQUE: One view of the chest was acquired. 2 images. COMPARISON: CXR 09/05/2019, 08/09/2019. CT chest 03/20/2014. FINDINGS: Surgical changes and devices: None. Lungs and pleura: No pleural effusions or pneumothorax. Mild streaky airspace opacity is appreciated in the right lower lobe. This seems to improve on the second image. Mediastinum: Mediastinal contours appear unchanged. Heart size is within normal limits. Bones and chest wall: No suspicious bony lesions. Overlying soft tissues appear unremarkable. IMPRESSION: Mild streaky opacity at the right lung base. Favor atelectasis. Less likely pneumonia or aspiration. Reviewed by: Yordy Renee MD on 02/05/2021 5:20 PM PDT Approved by: Yordy Renee MD on 02/05/2021 5:20 PM PDT Station ID: [id number]
[2021-02-05] MEDS ORDERED: diltiaZEM CD 120 MG CAPSULE PO STA (17:31)
[2021-02-05 17:37] VITALS: BP 106/78
== END 2021-02-05 18:08 | disposition home or self-care (01) ==
LOC: ED 16:39
DX: I48.91 Unspecified atrial fibrillation (principal); I49.3 Ventricular premature depolarization; I50.9 Heart failure, unspecified; J43.9 Emphysema, unspecified
CPT/HCPCS: 36415; 71045; 80053; 83690; 83880; 84484; 85025; 93005; 96374; 99283; 99284; A9270

== ENCOUNTER 2021-02-15 11:56 | Inpatient (IN) | payer MEDICARE ==
--- OUTSIDE RECORDS SUMMARY | 2021-02-15 12:01 | EXTERNAL MEDICAL SUMMARY RPT | Continuity of Care Document ---
:1935 Demographics Phone Unavailable Preferred Language Unknown Marital Status Unknown Catholic Affiliation Unknown Race Unknown Ethnic Group Unknown Author Organization [facility] Address [address] [place] [address] Phone Allergies Encounters Medications Problems Results
--- OUTSIDE RECORDS SUMMARY | 2021-02-15 12:23 | EXTERNAL MEDICAL SUMMARY RPT | Continuity of Care Document ---
:1935 Demographics Phone Unavailable Preferred Language Unknown Marital Status Unknown Zoroastrianism Affiliation Unknown Race Unknown Ethnic Group Unknown Author Organization [facility] Address [address] [place] [address] Phone Allergies Encounters Medications Problems Results
[2021-02-15] MEDS ORDERED: diltiaZEM INJ 5 MG/ML VIAL IVP STA (12:40)
[2021-02-15] MEDS ORDERED: FUROSEMIDE 40 MG/4 ML VIAL IVP STA (12:40)
[2021-02-15] MEDS ORDERED: IPRATROPIUM/ALBUTEROL 3 ML NEB INH STA (12:40)
[2021-02-15 12:41] LABS: BASOPHILS % (AUTO) 0.4 %; EOSINOPHILS # (AUTO) 0.1 10^3/uL (0.0-0.7); EOSINOPHILS % (AUTO) 1.2 %; HCT - HEMATOCRIT 39.7 % (42.0-52.0); HGB - HEMOGLOBIN 12.7 g/dL (14.0-18.0); LYMPHOCYTES # (AUTO) 1.4 10^3/uL (1.5-3.5); LYMPHOCYTES % (AUTO) 19.3 %; MEAN CORPUSCULAR HEMOGLOBIN 32.5 pg (27.0-31.0); MEAN CORPUSCULAR VOLUME 101.5 fL (80.0-94.0); MEAN PLATELET VOLUME 10.1 fL (7.4-11.4); MONOCYTES # (AUTO) 0.5 10^3/uL (0.0-1.0); MONOCYTES % (AUTO) 7.1 %; NEUTROPHILS # (AUTO) 5.3 10^3/uL (1.5-6.6); NEUTROPHILS % (AUTO) 71.7 %; PLT - PLATELET COUNT 198 10^3/uL (130-450); RED BLOOD COUNT 3.91 10^6/uL (4.70-6.10); RED CELL DISTRIBUTION WIDTH 13.2 % (12.0-15.0); WHITE BLOOD COUNT 7.4 x10^3/uL (4.8-10.8)
--- NOTE | 2021-02-15 12:58 | ED Physician Documentation ---
History of Present Illness - Stated complaint Stated Complaint: FEET SWELLING,HIGH HR - Chief complaint Chief Complaint: Cardiac - History obtained from History obtained from: Patient, Family - History of Present Illness Timing: How many weeks ago (2) Pain level max: 0 Pain level now: 0 - Additonal information Additional information: 85-year-old male states he was seen here recently and diagnosed with new onset atrial fibrillation. He states that since that time he has become more more short of breath. He ran out of his nebulizer medications today. Has a history of COPD. He states the swelling in his legs has gotten worse as well. Now having difficulty breathing when lying down. No history of heart failure. Has not had an echocardiogram yet. Does not use oxygen at home. No fevers. No chills. Chronic unchanged cough. Review of Systems Ten Systems: 10 systems reviewed and negative Constitutional: denies: Fever, Chills Throat: denies: Sore throat Cardiac: denies: Chest pain / pressure Respiratory: reports: Dyspnea. denies: Cough GI: denies: Nausea, Vomiting, Diarrhea Skin: denies: Rash Musculoskeletal: denies: Neck pain, Back pain Neurologic: denies: Headache PD PAST MEDICAL HISTORY - Past Medical History Past Medical History: Yes Cardiovascular: None Respiratory: Emphysema Neuro: Peripheral neuropathy Endocrine/Autoimmune: HyPOthyroidism GI: None : Nocturia, Frequency Psych: Anxiety Musculoskeletal: Osteoarthritis Derm: Other - Past Surgical History Past Surgical History: Yes Ortho: Arthroscopic surgery - Present Medications Home Medications: Ambulatory Orders Medication Instructions Recorded Confirmed Levothyroxine Sodium [Tirosint] 125 mcg PO DAILY 01/29/13 02/05/21 Cyanocobalamin (Vitamin B-12) 2,500 mcg SL DAILY 02/28/13 02/05/21 [Vitamin B-12] Furosemide [Lasix] 40 mg PO DAILY 04/03/13 02/05/21 Arformoterol Tartrate [Brovana] 15 mcg NEB DAILY 08/09/19 02/05/21 Budesonide 1 inh INH BID 08/09/19 02/05/21 Ipratropium/Albuterol [Duoneb] 3 ml INH DAILY 08/09/19 02/05/21 Sertraline HCl 100 mg PO DAILY 08/09/19 02/05/21 clonazePAM [Clonazepam] 0.5 - 1 mg PO DAILY PRN 08/09/19 02/05/21 Potassium Chloride [K-Dur] 20 meq PO DAILY 08/10/19 02/05/21 Cholecalciferol (Vitamin D3) 1 cap PO DAILY PM 02/05/21 02/05/21 [Vitamin D3] Furosemide [Lasix] 40 mg PO BID #4 tablet 02/05/21 diltiaZEM CD [Cardizem Cd] 120 mg PO DAILY #30 02/05/21 - Allergies Allergies/Adverse Reactions: Allergies Allergy/AdvReac Type Severity Reaction Status Date / Time No Known Drug Allergies Allergy Verified 02/15/21 12:15 - Social History Does the pt smoke?: No Smoking Status: Never smoker Does the pt drink ETOH?: Yes Does the pt have substance abuse?: No - Immunizations Immunizations are current?: Yes - POLST POLST Status: Full Code (pt report he request CPR but no incubation) PD ED PE NORMAL - Vitals Vital signs reviewed: Yes - General General: Alert and oriented X 3, No acute distress - HEENT HEENT: Moist mucous membranes - Neck Neck: Supple, no meningeal sign - Cardiac Cardiac: RRR, Strong equal pulses - Respiratory Respiratory: No respiratory distress, Other (Mild wheezing bilaterally and window and siding craftsman ckles) - Abdomen Abdomen: Soft, Non tender, Non distended - Derm Derm: Warm and dry - Extremities Extremities: Other (2+ bilateral lower extremity pitting edema with dusky discoloration of the toes.) - Neuro Neuro: Alert and oriented X 3 - Psych Psych: Normal mood, Normal affect Results - Vitals Vitals: Vital Signs - 24 hr 02/15/21 02/15/21 02/15/21 12:06 12:50 12:56 Temperature 36.0 C L Heart Rate 140 H 82 83 Respiratory 18 25 H 20 Rate Blood Pressure 135/74 H 121/100 H O2 Saturation 95 92 02/15/21 02/15/21 02/15/21 13:20 13:30 14:00 Temperature Heart Rate 119 H 104 H 103 H Respiratory 22 19 18 Rate Blood Pressure 127/92 H 142/87 H 117/60 O2 Saturation 95 93 96 Oxygen O2 Source Room air - EKG (time done) 1240 Rate: Rate (enter#) (125) Rhythm: Atrial fibrillation ( w/ RVR), Other (PVC) [place]: Normal Ischemia: Non specific changes - Labs Labs: Laboratory Tests 02/15/21 02/15/21 02/15/21 12:33 12:33 12:33 WBC 7.4 RBC 3.91 L Hgb 12.7 L Hct 39.7 L MCV 101.5 H MCH 32.5 H MCHC 32.0 RDW 13.2 Plt Count 198 MPV 10.1 Neut # (Auto) 5.3 Lymph # (Auto) 1.4 L [place] # (Auto) 0.5 Eos # (Auto) 0.1 Baso # (Auto) 0.0 Absolute Nucleated RBC 0.00 Nucleated RBC % 0.0 Sodium 144 Potassium 3.4 L Chloride 98 L Carbon Dioxide 33 H Anion Gap 13.0 BUN 31 H Creatinine 0.8 Estimated GFR (MDRD) 92 Glucose 98 Calcium 9.2 Total Bilirubin 0.9 AST 73 H ALT 87 H Alkaline Phosphatase 81 Troponin I High Sens 40.6 H* B-Natriuretic Peptide Total Protein 7.0 Albumin 4.1 Globulin 2.9 Albumin/Globulin Ratio 1.4 Lipase 24 02/15/21 12:33 WBC RBC Hgb Hct MCV MCH MCHC RDW Plt Count MPV Neut # (Auto) Lymph # (Auto) [place] # (Auto) Eos # (Auto) Baso # (Auto) Absolute Nucleated RBC Nucleated RBC % Sodium Potassium Chloride Carbon Dioxide Anion Gap BUN Creatinine Estimated GFR (MDRD) Glucose Calcium Total Bilirubin AST ALT Alkaline Phosphatase Troponin I High Sens B-Natriuretic Peptide 415 H Total Protein Albumin Globulin Albumin/Globulin Ratio Lipase - Rads (name of study) cxr Radiology: Prelim report reviewed, EMP read contemporaneously, See rad report PD MEDICAL DECISION MAKING - ED course Complexity details: reviewed results, re-evaluated patient, considered differential, d/w patient, d/w family, d/w design center consultant ED course: Patient with interstitial prominence on chest x-ray, elevated BNP. No history of heart failure per family. Atrial fibrillation is controlled with a dose of diltiazem, would benefit from an echocardiogram and continued diuresis. His oxygen saturations are around on room air at rest. Given IV Lasix here. We will place the patient in observation for further work-up of the new onset atrial fibrillation and possible heart failure. Discussed the case with Dr. Wilde, hospitalist who accepts This document was made in part using voice recognition software. While efforts are made to proofread this document, sound alike and grammatical errors may occur. Departure - Departure Disposition: ED Place in Observation Clinical Impression: New onset a-fib, COPD exacerbation Pulmonary edema Qualifiers: Chronicity: acute Qualified Code(s): J81.0 - Acute pulmonary edema Dyspnea Qualifiers: Dyspnea type: shortness of breath Qualified Code(s): R06.02 - Shortness of breath Condition: Stable
[2021-02-15 13:14] LABS: ALBUMIN 4.1 g/dL (3.2-5.5); ALBUMIN/GLOBULIN RATIO 1.4 (1.0-2.2); BILIRUBIN,TOTAL 0.9 mg/dL (0.2-1.0); CALCIUM 9.2 mg/dL (8.5-10.3); CREATININE 0.8 mg/dL (0.6-1.2); POTASSIUM 3.4 mmol/L (3.5-5.0)
--- NOTE | 2021-02-15 13:39 | XRAY Report ---
PROCEDURE: Chest 1 View X-Ray INDICATIONS: Chest pain TECHNIQUE: One view of the chest was acquired. COMPARISON: 02/05/2021 FINDINGS: Surgical changes and devices: None. Lungs and pleura: No pleural effusions or pneumothorax. Mild interstitial prominence, unchanged. Rosa vation of right hemidiaphragm. Mediastinum: Mediastinal contours appear normal. Heart size is normal. Bones and chest wall: No suspicious bony lesions. Overlying soft tissues appear unremarkable. IMPRESSION: Stable findings. No evidence acute pulmonary process. Reviewed by: Dennis Zapata MD on 02/15/2021 1:38 PM PDT Approved by: Dennis Zapata MD on 02/15/2021 1:38 PM PDT Station ID: [id number]
[2021-02-15] MEDS ORDERED: ONDANSETRON 4 MG/2 ML VIAL IVP PRN (14:07)
[2021-02-15] MEDS ORDERED: ACETAMINOPHEN 325 MG TABLET PO PRN (14:07)
--- NOTE | 2021-02-15 14:23 | HISTORY & PHYSICAL EXAMINATION ---
Chief Complaint - Chief Complaint Chief Complaint: dizziness, weakness History of Present Illness - Admitted From Admitted From:: [facility] - History Obtained From Records Reviewed: yes History obtained from: patient - History of Present Illness HPI Comment/Other: Patient is 85-year-old male with medical history significant for emphysema/COPD, hypothyroidism, anxiety, atrial fibrillation who presented to the ED with complaint of dizziness and weakness which has been going on for couple of weeks. Today he reports falling down when he got out of bed. In the ED work-up indicated he was in atrial fibrillation with a rapid ventricular rhythm. His heart rate was as high as 140. He was in the ED about a week ago with similar presentation. It was requested that he stay overnight for monitoring and an echocardiogram. However the patient declined. Currently at bedside he denies chest pain, dyspnea, abdominal pain, nausea, vomiting, fever or chills. He has lower extremity edema. He is on Lasix 40 mg p.o. twice daily at home. He gets around the house using a walker. He lives with his . He is independent of activities of daily living but does not drive. He was admitted for better control of his atrial fibrillation and for a 2D echocardiogram in the morning. History - Past Medical History Cardiovascular: reports: None, Atrial fibrillation Respiratory: reports: Emphysema Neuro: reports: Peripheral neuropathy Endocrine/Autoimmune: reports: HyPOthyroidism GI: reports: None : reports: Nocturia, Frequency Psych: reports: Anxiety Musculoskeletal: reports: Osteoarthritis Derm: reports: Other MRSA Hx?: No - Past Surgical History Ortho: reports: Arthroscopic surgery - Family & Social History Family History: Mother: , COPD/Emphysema, Father: , Cancer Family History Comment/Other: His parents had hx of heavy cigarette smoking. His mother from COPD, his father from cancer. He has three children. Living arrangement: At home Living Situation: With spouse/s.o. Social History Notes: He reports a 30yr history of smoking. He denies alcohol and drug issue. He lives with his in [facility] - POLST Patient has POLST: No POLST Status: Full Code (pt report he request CPR but no incubation) Meds/Allgy - Home Medications Home Medications: Ambulatory Orders Medication Instructions Recorded Confirmed Levothyroxine Sodium [Tirosint] 125 mcg PO DAILY 01/29/13 02/05/21 Cyanocobalamin (Vitamin B-12) 2,500 mcg SL DAILY 02/28/13 02/05/21 [Vitamin B-12] Arformoterol Tartrate [Brovana] 15 mcg NEB DAILY 08/09/19 02/05/21 Budesonide 1 inh INH BID 08/09/19 02/05/21 Ipratropium/Albuterol [Duoneb] 3 ml INH DAILY 08/09/19 02/05/21 Sertraline HCl 100 mg PO DAILY 08/09/19 02/05/21 clonazePAM [Clonazepam] 0.5 - 1 mg PO DAILY PRN 08/09/19 02/05/21 Potassium Chloride [K-Dur] 20 meq PO DAILY 08/10/19 02/05/21 Cholecalciferol (Vitamin D3) 1 cap PO DAILY PM 02/05/21 02/05/21 [Vitamin D3] Furosemide [Lasix] 40 mg PO BID #4 tablet 02/05/21 diltiaZEM CD [Cardizem Cd] 120 mg PO DAILY #30 02/05/21 Albuterol Sulfate [Proair Hfa 1 puffs PO PRN PRN 02/15/21 Inhaler] Metoprolol Succinate [Toprol Xl] 25 mg PO DAILY 02/15/21 - Allergies Allergies/Adverse Reactions: Allergies Allergy/AdvReac Type Severity Reaction Status Date / Time No Known Drug Allergies Allergy Verified 02/15/21 12:15 Review of Systems - Constitutional Constitutional: reports: Weakness. denies: Fever, Chills - Eyes Eyes: denies: Pain, Vision loss - Cardiovascular Cariovascular: reports: Irregular heart rate, Edema, Lightheadedness, Syncope. denies: Palpitations, Chest pain, Exertional dyspnea - Respiratory Respiratory: denies: Cough, Sputum production, Wheezing, SOB at rest, SOB with exertion - Gastrointestinal Gastrointestinal: denies: Abdominal pain, Abdominal distention, Constipation, Nausea, Vomiting, Coffee grounds emesis, Reflux/heartburn - Genitourinary Genitourinary: denies: Dysuria, Frequency, Urgency, Hematuria, Incontinence, Flank pain - Musculoskeletal Musculoskeletal: denies: Muscle pain, Back pain, Muscle aches - Integumentary Integumentary: denies: Rash, Pruritis - Neurological Neurological: reports: Dizziness. denies: General weakness, Headache, Numbness, Seizures - Psychiatric Psychiatric: reports: Anxiety. denies: Depression - Endocrine Endocrine: denies: Polyuria - Hematologic/Lymphatic Hematologic/Lymphatic: denies: Anemia, Bruising Prior Level of Functionality: He is independent of activities of daily living. Exam - Vital Signs Vital Signs: Vital Signs x48h Temp Pulse Resp BP Pulse Ox 02/15/21 14:00 103 H 18 117/60 96 02/15/21 13:30 104 H 19 142/87 H 93 02/15/21 13:20 119 H 22 127/92 H 95 02/15/21 12:56 83 20 02/15/21 12:50 82 25 H 121/100 H 92 02/15/21 12:06 36.0 C L 140 H 18 135/74 H 95 - Physical Exam General Appearance: positive: No acute distress, Alert Eyes Bilateral: positive: PERRL, EOMI ENT: positive: No signs of dehydration Neck: positive: No JVD, Trachea midline Cardiovascular: positive: Irregularly irregular Abdomen: positive: Non-tender, No organomegaly, Nml bowel sounds, No distention. negative: Guarding, Rebound Back: positive: Nml inspection Skin: positive: No rash, Warm, Dry Extremities: positive: Non-tender, Nml appearance, Pedal edema Neurologic/Psychiatric: positive: Oriented x3, Mood/affect nml Conclusion/Plan - Problem List (1) Atrial fibrillation with RVR Conclusion/Plan: Recent/new diagnosis. Patient was given diltiazem 10 mg IV x1 in the ED. Heart rate improved from 140 down to 83. However heart rate has Been between 100 and 120. The patient is metoprolol succinate 25 mg daily. Will increase to 50 mg p.o. daily Metoprolol 5 mg IV every 6 hours as needed for heart rate greater than 120 ordered. 2D echocardiogram ordered for the morning. Monitoring patient on telemetry. (2) COPD (chronic obstructive pulmonary disease) Conclusion/Plan: Patient is on budesonide twice daily at home and proair. DuoNeb ordered every 3 hours as needed. (3) Anxiety Conclusion/Plan: Will resume patient's clonazepam once verified. (4) Hypothyroidism Conclusion/Plan: On Synthroid 125 mcg p.o. daily. (5) Depression Conclusion/Plan: On sertraline 100 mg p.o. daily (6) Elevated troponin Conclusion/Plan: Initial troponin was 40. We will trend times tomorrow. (7) Lower extremity edema Conclusion/Plan: Suspect this is due to pulmonary edema/CHF. Patient is currently not in exacerbation. He is on Lasix 40 mg p.o. twice daily. Will continue. BNP was 400. 2D echocardiogram pending for the morning. - Lab Results Fish Bones: 02/15/21 12:33 02/15/21 12:33 Core Measures - Anticipated LOS I expect patient to be DC'd or transferred within 96 hours.: Yes - DVT/VTE - Prophylaxis VTE/DVT Device ordered at admit?: Yes VTE/DVT Prophylaxis med ordered at admit?: Yes
--- OUTSIDE RECORDS SUMMARY | 2021-02-15 14:35 | EXTERNAL MEDICAL SUMMARY RPT | Continuity of Care Document ---
:1935 Demographics Phone Unavailable Preferred Language Unknown Marital Status Unknown Moravian Affiliation Unknown Race Unknown Ethnic Group Unknown Author Organization [facility] Address [address] [place] [address] Phone Allergies Encounters Medications Problems Results
[2021-02-15 14:56] LABS: B. PARAPERTUSSIS- RESP PCR PAN NOT DETECTED; B. PERTUSSIS- RESP PCR PANEL NOT DETECTED; C. PNEUMONIAE- RESP PCR PANEL NOT DETECTED; CORONAVIRUS 229E-RESP PCR NOT DETECTED; CORONAVIRUS HKU1-RESP PCR NOT DETECTED; CORONAVIRUS NL63-RESP PCR NOT DETECTED; CORONAVIRUS OC43-RESP PCR NOT DETECTED; HUMAN METAPNEUMOVIRUS NOT DETECTED; INFLUENZA A- RESP PCR PANEL NOT DETECTED; INFLUENZA B - RESP PCR PANEL NOT DETECTED; M. PNEUMONIAE- RESP PCR PANEL NOT DETECTED; PARAINFLUENZA VIRUS 1 NOT DETECTED; PARAINFLUENZA VIRUS 2 NOT DETECTED; PARAINFLUENZA VIRUS 3 NOT DETECTED; PARAINFLUENZA VIRUS 4 NOT DETECTED; RHINOVIRUS/ENTEROVIRUS NOT DETECTED; RSV- RESP PCR PANEL NOT DETECTED; SARS-CoV-2 -RESP PCR PANEL NOT DETECTED
[2021-02-15] MEDS: SODIUM CHLORIDE FLUSH 0.9% 10 ML SYRINGE IVP SCH ×2 (16:13→23:40)
[2021-02-15] MEDS ORDERED: METOPROLOL 5 MG/5 ML VIAL IVP PRN (16:32)
[2021-02-15] MEDS ORDERED: IPRATROPIUM/ALBUTEROL 3 ML NEB INH PRN (16:35)
--- NOTE | 2021-02-15 17:02 | PHARMACY PROGRESS NOTE ---
- Best Possible Medication History Admit Date and Time: 02/15/21 1404 Processed by: Pharmacy Medication History completed: Yes Patient Interview: Completed (PATIENT ABLE TO CONFIRM HOME MEDICATIONS) As the person ultimately responsible for medication therapy, providers are able to order a medication from an existing home medication list in [facility] via the "Reconcile Routine" prior to Confirmation of that medication by ground support equipment assembler. Such practice is discouraged except when the physician, in their clinical judgment, deems that a medical need exists for a medication without regard to previous use.
[2021-02-15] MEDS: BUDESONIDE 0.5 MG/2 ML NEB INH SCH (17:35)
[2021-02-15] MEDS ORDERED: MORPHINE 2 MG/ML CARPUJECT IVP PRN (20:17)
[2021-02-15] MEDS ORDERED: FUROSEMIDE 40 MG TABLET PO SCH (21:00)
[2021-02-16] MEDS ORDERED: FUROSEMIDE 40 MG TABLET PO SCH ×2 (01:16→12:00)
[2021-02-16] MEDS ORDERED: MORPHINE 2 MG/ML CARPUJECT IVP PRN (01:17)
[2021-02-16] MEDS ORDERED: DIGOXIN 500 MCG/2 ML AMP IVP STA (01:22)
[2021-02-16] MEDS ORDERED: CLONAZEPAM 1 MG PO PRN (01:24)
--- NOTE | 2021-02-16 01:34 | PROVIDER PROGRESS NOTE ---
Rolling Mill Operator Note - Rolling Mill Operator Note Rolling Mill Operator Note: At about 0115, the RN notified this Hospitalist that the patient's blood pressure was 88 systolic and heart rate was 127 in A. fib. Review of telemetry strip shows that he is actually in atrial flutter with 3:1 block alternating with 2:1 block, with an average heart rate of 120. The patient is sleeping and in no distress. Patient received Lasix 40 orally twice daily today, Cardizem CD orally, Metoprolol succinate orally and Metoprolol 5 mg IV, Diltiazem 10 mg IV and Lasix 40 mg IV. Impression: 1) Hypotension, related to meds. He has no prior history of hypertension therefore these medications are excessive for him and causing hypotension. 2) Atrial fib-flutter with RVR 3) CHF exacerbation but without desaturations. 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 His Echo is still pending. 4) COPD without exacerbation Plan: 1) Because of marked hypotension, will admit him to Inpatient status, since he needs significant medication adjustments 2) Will stop prn IV Lopressor for rate control. 3) Will give dose(s) of iv Dig for rate control 4) Will continue Metoprolol succinate and give staggered doses of Cardizem 60 mg po bid, 5) Will stop Lasix twice daily and only give it once a day and also stagger its administration to noon. 6) Awaiting a complete Echo evaluation 7) Obtain TSH to R/O thyroid medication excess, as the cause of high heart rates. 8) Will order Xopenex as needed for COPD, not use his Albuterol which may be adding to tachycardia. 9) He was not started on anticoagulation and his CHADS2 score is 2 (CHF and age). Will change his prophylactic dose of Lovenox to a therapeutic dose of Lo venox and then anticoagulation needs to be discussed to make a choice, after the Echo is done and EF is known. 10) Patient may need Midodrine or compression stockings started to avoid orthostasis. 11) Will resume his antianxiety meds, so that anxiety does not add to his high heart rate.
[2021-02-16] MEDS: SODIUM CHLORIDE FLUSH 0.9% 10 ML SYRINGE IVP PRN ×2 (01:39→12:02)
[2021-02-16] MEDS ORDERED: DIGOXIN 500 MCG/2 ML AMP IVP ONE (04:30)
[2021-02-16 05:08] LABS: BASOPHILS % (AUTO) 0.4 %; EOSINOPHILS # (AUTO) 0.2 10^3/uL (0.0-0.7); EOSINOPHILS % (AUTO) 2.4 %; HCT - HEMATOCRIT 36.7 % (42.0-52.0); HGB - HEMOGLOBIN 11.8 g/dL (14.0-18.0); LYMPHOCYTES # (AUTO) 1.6 10^3/uL (1.5-3.5); LYMPHOCYTES % (AUTO) 23.1 %; MEAN CORPUSCULAR HEMOGLOBIN 32.5 pg (27.0-31.0); MEAN CORPUSCULAR HGB CONC 32.2 g/dL (32.0-36.0); MEAN CORPUSCULAR VOLUME 101.1 fL (80.0-94.0); MEAN PLATELET VOLUME 10.3 fL (7.4-11.4); MONOCYTES # (AUTO) 0.6 10^3/uL (0.0-1.0); MONOCYTES % (AUTO) 8.5 %; NEUTROPHILS # (AUTO) 4.4 10^3/uL (1.5-6.6); NEUTROPHILS % (AUTO) 65.2 %; PLT - PLATELET COUNT 181 10^3/uL (130-450); RED BLOOD COUNT 3.63 10^6/uL (4.70-6.10); WHITE BLOOD COUNT 6.7 x10^3/uL (4.8-10.8)
[2021-02-16 05:15] LABS: CALCIUM 8.8 mg/dL (8.5-10.3); CREATININE 0.8 mg/dL (0.6-1.2); POTASSIUM 3.4 mmol/L (3.5-5.0)
[2021-02-16] MEDS: BUDESONIDE 0.5 MG/2 ML NEB INH SCH ×2 (06:38→18:56)
[2021-02-16] MEDS: LEVALBUTEROL 1.25 MG/3 ML NEB INH PRN ×2 (06:38→18:57)
[2021-02-16] MEDS: diltiaZEM 30 MG TABLET PO SCH ×2 (08:14→18:36)
[2021-02-16] MEDS: METOPROLOL SUCCINATE 50 MG TABLET PO SCH (08:15)
[2021-02-16] MEDS: POTASSIUM CHLORIDE 20 MEQ TABLET PO SCH (08:15)
[2021-02-16] MEDS: clonazePAM 0.5 MG TABLET PO PRN (08:15)
[2021-02-16] MEDS: SODIUM CHLORIDE FLUSH 0.9% 10 ML SYRINGE IVP SCH ×2 (08:16→17:12)
[2021-02-16] MEDS: LEVOTHYROXINE 125 MCG TABLET PO SCH (08:27)
[2021-02-16] MEDS ORDERED: ENOXAPARIN 40 MG/0.4 ML SYRINGE SUBQ SCH (09:00)
[2021-02-16] MEDS ORDERED: ENOXAPARIN 100 MG/ML SYRINGE SUBQ SCH (09:00)
[2021-02-16] MEDS ORDERED: SERTRALINE HCL 100 MG PO SCH (09:00)
[2021-02-16] MEDS ORDERED: ARFORMOTEROL TARTRATE 15 MCG/2 ML NEB SCH (09:00)
[2021-02-16] MEDS ORDERED: diltiaZEM CD 120 MG CAPSULE PO SCH (09:00)
[2021-02-16] MEDS: FORMOTEROL FUMARATE NEB 20 MCG/2 ML INH SCH ×2 (09:40→18:56)
--- NOTE | 2021-02-16 11:24 | PROVIDER PROGRESS NOTE ---
Subjective - Prog Note Date Prog Note Date: 02/16/21 - Subjective Subjective: He reports feeling better today but does feel short of breath still with minimal exertion. Still has lower extremity edema. Denies any chest pain. Current Medications - Current Medications Current Medications: Active Medications Acetaminophen (Acetaminophen 325 Mg Tablet) 650 mg PO Q4HR PRN PRN Reason: Pain 1 to 4 Apixaban (Apixaban 5 Mg Tablet) 5 mg PO BID [facility] Budesonide (Budesonide 0.5 Mg/2 Ml Neb) 0.5 mg INH RTBID [facility] Last Admin: 02/16/21 06:38 Dose: 0.5 mg Documented by: Clonazepam (Clonazepam 0.5 Mg Tablet) 0.5 mg PO DAILY PRN PRN Reason: Anxiety Last Admin: 02/16/21 08:15 Dose: 0.5 mg Documented by: Diltiazem HCl (Diltiazem 30 Mg Tablet) 60 mg PO 0800,1800 [facility] Last Admin: 02/16/21 08:14 Dose: 60 mg Documented by: Formoterol Fumarate (Formoterol Fumarate Neb 20 Mcg/2 Ml) 20 mcg INH RTBID [facility] Last Admin: 02/16/21 09:40 Dose: Not Given Documented by: Furosemide (Furosemide 40 Mg Tablet) 40 mg PO 1200 [facility] Levalbuterol HCl (Levalbuterol 1.25 Mg/3 Ml Neb) 1.25 mg INH Q4H PRN PRN Reason: Shortness of Air/Wheezing Last Admin: 02/16/21 06:38 Dose: 1.25 mg Documented by: Levothyroxine Sodium (Levothyroxine 125 Mcg Tablet) 125 mcg PO DAILY [facility] Last Admin: 02/16/21 08:27 Dose: 125 mcg Documented by: Metoprolol Succinate (Metoprolol Succinate 50 Mg Tablet) 50 mg PO DAILY [facility] Last Admin: 02/16/21 08:15 Dose: 50 mg Documented by: Morphine Sulfate (Morphine 2 Mg/Ml Carpuject) 1 mg IVP Q4HR PRN PRN Reason: Dyspnea Ondansetron HCl (Ondansetron 4 Mg/2 Ml Vial) 4 mg IVP Q6HR PRN PRN Reason: Nausea / Vomiting Potassium Chloride (Potassium Chloride 20 Meq Tablet) 20 meq PO DAILY [facility] Last Admin: 02/16/21 08:15 Dose: 20 meq Documented by: Sodium Chloride (Sodium Chloride Flush 0.9% 10 Ml Syringe) 10 ml IVP PRN PRN PRN Reason: NEEDED PER PROVIDER ORDERS Last Admin: 02/16/21 01:39 Dose: 10 ml Documented by: Sodium Chloride (Sodium Chloride Flush 0.9% 10 Ml Syringe) 10 ml IVP 0100,0900,1700 [facility] Last Admin: 02/16/21 08:16 Dose: 10 ml Documented by: Levothyroxine Sodium [Tirosint] 125 mcg PO DAILY 01/29/13 Cyanocobalamin (Vitamin B-12) [Vitamin B-12] 2,500 mcg SL DAILY 02/28/13 Arformoterol Tartrate [Brovana] 15 mcg NEB DAILY 08/09/19 Budesonide 1 inh INH BID 08/09/19 Ipratropium/Albuterol [Duoneb] 3 ml INH DAILY 08/09/19 clonazePAM [Clonazepam] 0.5 - 1 mg PO DAILY PRN 08/09/19 Potassium Chloride [K-Dur] 20 meq PO DAILY 08/10/19 Albuterol Sulfate [Proair Hfa Inhaler] 1 puffs PO PRN PRN 02/15/21 Cholecalciferol (Vitamin D3) [Vitamin D3] 50 mcg PO DAILY 02/15/21 Metoprolol Succinate [Toprol Xl] 25 mg PO DAILY 02/15/21 Objective - Vital Signs/Intake & Output Reviewed Vital Signs: Yes Vital Signs: Vital Signs x48h Temp Pulse Pulse Resp BP BP Pulse Ox 02/16/21 08:20 36.4 C L 89 18 120/85 H 97 02/16/21 08:14 101/81 H 02/16/21 06:39 56 L 18 02/16/21 04:42 36.3 C L 96 16 102/58 L 90 L 02/16/21 04:34 97 Intake & Output: Intake & Output 02/13/21 02/14/21 02/15/21 02/16/21 23:59 23:59 23:59 23:59 Intake Total 200 900 Output Total 675 325 Balance -475 575 - Objective General Appearance: positive: No acute distress, Alert Eyes Bilateral: positive: Normal inspection, Conjunctivae nml ENT: positive: ENT inspection nml Neck: positive: Nml inspection Respiratory: positive: No respiratory distress, Other (Faint crackles bilaterally.). negative: Wheezes, Rales Cardiovascular: positive: Irregularly irregular. negative: Tachycardia, Bradycardia, Systolic murmur Abdomen: positive: Non-tender, No distention. negative: Tenderness Skin: positive: Warm, Dry Extremities: positive: Pedal edema (+1 pitting edema in the bilateral lower extremities) Neurologic/Psychiatric: negative: Disoriented to person, Disoriented to place - Lab Results Fish Bones: 02/16/21 04:44 02/16/21 04:44 Other Labs: Lab Results x24hrs 02/16/21 02/16/21 02/16/21 Range/Units 08:18 04:44 04:44 WBC (4.8-10.8) x10^3/uL RBC (4.70-6.10) 10^6/uL Hgb (14.0-18.0) g/dL Hct (42.0-52.0) % MCV (80.0-94.0) fL MCH (27.0-31.0) pg MCHC (32.0-36.0) g/dL RDW (12.0-15.0) % Plt Count (130-450) 10^3/uL MPV (7.4-11.4) fL Neut # (Auto) (1.5-6.6) 10^3/uL Lymph # (Auto) (1.5-3.5) 10^3/uL [place] # (Auto) (0.0-1.0) 10^3/uL Eos # (Auto) (0.0-0.7) 10^3/uL Baso # (Auto) (0.0-0.1) 10^3/uL Absolute Nucleated RBC x10^3/uL Nucleated RBC % /100WBC Sodium (135-145) mmol/L Potassium (3.5-5.0) mmol/L Chloride (101-111) mmol/L Carbon Dioxide (21-32) mmol/L Anion Gap (6-13) BUN (6-20) mg/dL Creatinine (0.6-1.2) mg/dL Estimated GFR (MDRD) (>89) Glucose (70-100) mg/dL Calcium (8.5-10.3) mg/dL Magnesium 2.0 (1.7-2.8) mg/dL Total Bilirubin (0.2-1.0) mg/dL AST (10-42) IU/L ALT (10-60) IU/L Alkaline Phosphatase (42-121) IU/L Troponin I High Sens 48.2 H* (2.3-19.7) ng/L B-Natriuretic Peptide (5-100) pg/mL Total Protein (6.7-8.2) g/dL Albumin (3.2-5.5) g/dL Globulin (2.1-4.2) g/dL Albumin/Globulin Ratio (1.0-2.2) Lipase (22-51) U/L TSH 4.68 (0.34-5.60) uIU/mL Nasal Adenovirus (PCR) Nasal B. parapertussis DNA (PCR) Nasal Coronavir 229E PCR Nasal Coronavir HKU1 PCR Nasal Coronavir NL63 PCR Nasal Coronavir OC43 PCR Nasal Enterovir/Rhinovir PCR Nasal Influenza B PCR Nasal Influenza A PCR Nasal Parainfluen 1 PCR Nasal Parainfluen 2 PCR Nasal Parainfluen 3 PCR Nasal Parainfluen 4 PCR Nasal RSV (PCR) Nasal B.pertussis DNA PCR Nasal C.pneumoniae (PCR) [place] Human Metapneumo PCR Nasal M.pneumoniae (PCR) Nasal SARS-CoV-2 (PCR) 02/16/21 02/16/21 02/16/21 Range/Units 04:44 04:44 04:44 WBC (4.8-10.8) x10^3/uL RBC (4.70-6.10) 10^6/uL Hgb (14.0-18.0) g/dL Hct (42.0-52.0) % MCV (80.0-94.0) fL MCH (27.0-31.0) pg MCHC (32.0-36.0) g/dL RDW (12.0-15.0) % Plt Count (130-450) 10^3/uL MPV (7.4-11.4) fL Neut # (Auto) (1.5-6.6) 10^3/uL Lymph # (Auto) (1.5-3.5) 10^3/uL [place] # (Auto) (0.0-1.0) 10^3/uL Eos # (Auto) (0.0-0.7) 10^3/uL Baso # (Auto) (0.0-0.1) 10^3/uL Absolute Nucleated RBC x10^3/uL Nucleated RBC % /100WBC Sodium 143 (135-145) mmol/L Potassium 3.4 L (3.5-5.0) mmol/L Chloride 100 L (101-111) mmol/L Carbon Dioxide 32 (21-32) mmol/L Anion Gap 11.0 (6-13) BUN 29 H (6-20) mg/dL Creatinine 0.8 (0.6-1.2) mg/dL Estimated GFR (MDRD) 92 (>89) Glucose 100 (70-100) mg/dL Calcium 8.8 (8.5-10.3) mg/dL Magnesium (1.7-2.8) mg/dL Total Bilirubin (0.2-1.0) mg/dL AST (10-42) IU/L ALT (10-60) IU/L Alkaline Phosphatase (42-121) IU/L Troponin I High Sens 49.2 H* (2.3-19.7) ng/L B-Natriuretic Peptide 451 H (5-100) pg/mL Total Protein (6.7-8.2) g/dL Albumin (3.2-5.5) g/dL Globulin (2.1-4.2) g/dL Albumin/Globulin Ratio (1.0-2.2) Lipase (22-51) U/L TSH (0.34-5.60) uIU/mL Nasal Adenovirus (PCR) Nasal B. parapertussis DNA (PCR) Nasal Coronavir 229E PCR Nasal Coronavir HKU1 PCR Nasal Coronavir NL63 PCR Nasal Coronavir OC43 PCR Nasal Enterovir/Rhinovir PCR Nasal Influenza B PCR Nasal Influenza A PCR Nasal Parainfluen 1 PCR Nasal Parainfluen 2 PCR Nasal Parainfluen 3 PCR Nasal Parainfluen 4 PCR Nasal RSV (PCR) Nasal B.pertussis DNA PCR Nasal C.pneumoniae (PCR) [place] Human Metapneumo PCR Nasal M.pneumoniae (PCR) Nasal SARS-CoV-2 (PCR) 02/16/21 02/15/21 02/15/21 Range/Units 04:44 18:10 13:57 WBC 6.7 (4.8-10.8) x10^3/uL RBC 3.63 L (4.70-6.10) 10^6/uL Hgb 11.8 L (14.0-18.0) g/dL Hct 36.7 L (42.0-52.0) % MCV 101.1 H (80.0-94.0) fL MCH 32.5 H (27.0-31.0) pg MCHC 32.2 (32.0-36.0) g/dL RDW 13.0 (12.0-15.0) % Plt Count 181 (130-450) 10^3/uL MPV 10.3 (7.4-11.4) fL Neut # (Auto) 4.4 (1.5-6.6) 10^3/uL Lymph # (Auto) 1.6 (1.5-3.5) 10^3/uL [place] # (Auto) 0.6 (0.0-1.0) 10^3/uL Eos # (Auto) 0.2 (0.0-0.7) 10^3/uL Baso # (Auto) 0.0 (0.0-0.1) 10^3/uL Absolute Nucleated RBC 0.00 x10^3/uL Nucleated RBC % 0.0 /100WBC Sodium (135-145) mmol/L Potassium (3.5-5.0) mmol/L Chloride (101-111) mmol/L Carbon Dioxide (21-32) mmol/L Anion Gap (6-13) BUN (6-20) mg/dL Creatinine (0.6-1.2) mg/dL Estimated GFR (MDRD) (>89) Glucose (70-100) mg/dL Calcium (8.5-10.3) mg/dL Magnesium (1.7-2.8) mg/dL Total Bilirubin (0.2-1.0) mg/dL AST (10-42) IU/L ALT (10-60) IU/L Alkaline Phosphatase (42-121) IU/L Troponin I High Sens 40.1 H* (2.3-19.7) ng/L B-Natriuretic Peptide (5-100) pg/mL Total Protein (6.7-8.2) g/dL Albumin (3.2-5.5) g/dL Globulin (2.1-4.2) g/dL Albumin/Globulin Ratio (1.0-2.2) Lipase (22-51) U/L TSH (0.34-5.60) uIU/mL Nasal Adenovirus (PCR) NOT DETECTED Nasal B. parapertussis DNA (PCR) NOT DETECTED Nasal Coronavir 229E PCR NOT DETECTED Nasal Coronavir HKU1 PCR NOT DETECTED Nasal Coronavir NL63 PCR NOT DETECTED Nasal Coronavir OC43 PCR NOT DETECTED Nasal Enterovir/Rhinovir PCR NOT DETECTED Nasal Influenza B PCR NOT DETECTED Nasal Influenza A PCR NOT DETECTED Nasal Parainfluen 1 PCR NOT DETECTED Nasal Parainfluen 2 PCR NOT DETECTED Nasal Parainfluen 3 PCR NOT DETECTED Nasal Parainfluen 4 PCR NOT DETECTED Nasal RSV (PCR) NOT DETECTED Nasal B.pertussis DNA PCR NOT DETECTED Nasal C.pneumoniae (PCR) NOT DETECTED [place] Human Metapneumo PCR NOT DETECTED Nasal M.pneumoniae (PCR) NOT DETECTED Nasal SARS-CoV-2 (PCR) NOT DETECTED 02/15/21 02/15/21 02/15/21 Range/Units 12:33 12:33 12:33 WBC (4.8-10.8) x10^3/uL RBC (4.70-6.10) 10^6/uL Hgb (14.0-18.0) g/dL Hct (42.0-52.0) % MCV (80.0-94.0) fL MCH (27.0-31.0) pg MCHC (32.0-36.0) g/dL RDW (12.0-15.0) % Plt Count (130-450) 10^3/uL MPV (7.4-11.4) fL Neut # (Auto) (1.5-6.6) 10^3/uL Lymph # (Auto) (1.5-3.5) 10^3/uL [place] # (Auto) (0.0-1.0) 10^3/uL Eos # (Auto) (0.0-0.7) 10^3/uL Baso # (Auto) (0.0-0.1) 10^3/uL Absolute Nucleated RBC x10^3/uL Nucleated RBC % /100WBC Sodium 144 (135-145) mmol/L Potassium 3.4 L (3.5-5.0) mmol/L Chloride 98 L (101-111) mmol/L Carbon Dioxide 33 H (21-32) mmol/L Anion Gap 13.0 (6-13) BUN 31 H (6-20) mg/dL Creatinine 0.8 (0.6-1.2) mg/dL Estimated GFR (MDRD) 92 (>89) Glucose 98 (70-100) mg/dL Calcium 9.2 (8.5-10.3) mg/dL Magnesium (1.7-2.8) mg/dL Total Bilirubin 0.9 (0.2-1.0) mg/dL AST 73 H (10-42) IU/L ALT 87 H (10-60) IU/L Alkaline Phosphatase 81 (42-121) IU/L Troponin I High Sens 40.6 H* (2.3-19.7) ng/L B-Natriuretic Peptide 415 H (5-100) pg/mL Total Protein 7.0 (6.7-8.2) g/dL Albumin 4.1 (3.2-5.5) g/dL Globulin 2.9 (2.1-4.2) g/dL Albumin/Globulin Ratio 1.4 (1.0-2.2) Lipase 24 (22-51) U/L TSH (0.34-5.60) uIU/mL Nasal Adenovirus (PCR) Nasal B. parapertussis DNA (PCR) Nasal Coronavir 229E PCR Nasal Coronavir HKU1 PCR Nasal Coronavir NL63 PCR Nasal Coronavir OC43 PCR Nasal Enterovir/Rhinovir PCR Nasal Influenza B PCR Nasal Influenza A PCR Nasal Parainfluen 1 PCR Nasal Parainfluen 2 PCR Nasal Parainfluen 3 PCR Nasal Parainfluen 4 PCR Nasal RSV (PCR) Nasal B.pertussis DNA PCR Nasal C.pneumoniae (PCR) [place] Human Metapneumo PCR Nasal M.pneumoniae (PCR) Nasal SARS-CoV-2 (PCR) 02/15/21 Range/Units 12:33 WBC 7.4 (4.8-10.8) x10^3/uL RBC 3.91 L (4.70-6.10) 10^6/uL Hgb 12.7 L (14.0-18.0) g/dL Hct 39.7 L (42.0-52.0) % MCV 101.5 H (80.0-94.0) fL MCH 32.5 H (27.0-31.0) pg MCHC 32.0 (32.0-36.0) g/dL RDW 13.2 (12.0-15.0) % Plt Count 198 (130-450) 10^3/uL MPV 10.1 (7.4-11.4) fL Neut # (Auto) 5.3 (1.5-6.6) 10^3/uL Lymph # (Auto) 1.4 L (1.5-3.5) 10^3/uL [place] # (Auto) 0.5 (0.0-1.0) 10^3/uL Eos # (Auto) 0.1 (0.0-0.7) 10^3/uL Baso # (Auto) 0.0 (0.0-0.1) 10^3/uL Absolute Nucleated RBC 0.00 x10^3/uL Nucleated RBC % 0.0 /100WBC Sodium (135-145) mmol/L Potassium (3.5-5.0) mmol/L Chloride (101-111) mmol/L Carbon Dioxide (21-32) mmol/L Anion Gap (6-13) BUN (6-20) mg/dL Creatinine (0.6-1.2) mg/dL Estimated GFR (MDRD) (>89) Glucose (70-100) mg/dL Calcium (8.5-10.3) mg/dL Magnesium (1.7-2.8) mg/dL Total Bilirubin (0.2-1.0) mg/dL AST (10-42) IU/L ALT (10-60) IU/L Alkaline Phosphatase (42-121) IU/L Troponin I High Sens (2.3-19.7) ng/L B-Natriuretic Peptide (5-100) pg/mL Total Protein (6.7-8.2) g/dL Albumin (3.2-5.5) g/dL Globulin (2.1-4.2) g/dL Albumin/Globulin Ratio (1.0-2.2) Lipase (22-51) U/L TSH (0.34-5.60) uIU/mL Nasal Adenovirus (PCR) Nasal B. parapertussis DNA (PCR) Nasal Coronavir 229E PCR Nasal Coronavir HKU1 PCR Nasal Coronavir NL63 PCR Nasal Coronavir OC43 PCR Nasal Enterovir/Rhinovir PCR Nasal Influenza B PCR Nasal Influenza A PCR Nasal Parainfluen 1 PCR Nasal Parainfluen 2 PCR Nasal Parainfluen 3 PCR Nasal Parainfluen 4 PCR Nasal RSV (PCR) Nasal B.pertussis DNA PCR Nasal C.pneumoniae (PCR) [place] Human Metapneumo PCR Nasal M.pneumoniae (PCR) Nasal SARS-CoV-2 (PCR) ABX Reporting Has patient been on IV antibiotics over the past 48 hours?: No Assessment/Plan - Problem List (1) Atrial fibrillation with RVR Impression: His heart rate is better controlled on diltiazem and metoprolol although this has been limited due to hypotension. Echocardiogram is pending. He did require digoxin overnight which she responded well to. At this time, we will continue him on the current dose of diltiazem and metoprolol and monitor his blood pressure to ensure that it remains stable given his hypotension overnight. We have started him on Eliquis after discussing anticoagulation and he will be on 5 mg twice daily. We will follow up echocardiogram. Continue to monitor on telemetry. (2) Hypotension Impression: This is likely secondary to the diuresis he received as well as the AV [place] blocking agents. His blood pressure this morning is stable in the 110 systolic although he was as low as the 80s overnight. He still needs to be diuresed as he is hypervolemic and so we will place him on 20 mg of Lasix IV daily. We will continue the current dose of metoprolol 50 mg daily and diltiazem 60 mg in the morning and the evening. I am hopeful that his blood pressure will remain st able on this but we will watch him closely over next 24 hours. If he has further hypotension then we will discontinue the diltiazem and consider increasing the metoprolol slightly. (3) Congestive heart failure Impression: This is likely the cause of his dyspnea. His chest x-ray reveals pulmonary vascular congestion and his BNP is elevated. Echocardiogram for today is pending. His weight is increased today although not sure how accurate this is. At this time, given his ongoing dyspnea, we will continue him on IV furosemide but will decrease the dose to 20 mg IV daily given his hypotension overnight. Continue with daily weights and strict I's and O's. Follow-up echocardiogram today. Qualifiers: Heart failure type: unspecified Heart failure chronicity: acute Qualified Code(s): I50.9 - Heart failure, unspecified (4) Elevated troponin Impression: This appears to be demand ischemia. His troponins are flat and his EKG did not suggest ischemia. (5) COPD (chronic obstructive pulmonary disease) Impression: Stable and not in exacerbation. Continue home inhalers and albuterol as needed. (6) Hypothyroidism Impression: His TSH is within normal limits. Continue Synthroid.
[2021-02-16] MEDS ORDERED: FUROSEMIDE 20 MG/2 ML VIAL IVP STA (11:36)
[2021-02-16] MEDS: APIXABAN 5 MG TABLET PO SCH (20:13)
[2021-02-17] MEDS: SODIUM CHLORIDE FLUSH 0.9% 10 ML SYRINGE IVP SCH ×4 (00:26→23:44)
[2021-02-17] MEDS: LEVALBUTEROL 1.25 MG/3 ML NEB INH PRN ×4 (02:51→19:19)
[2021-02-17 05:08] LABS: BASOPHILS % (AUTO) 0.4 %; EOSINOPHILS # (AUTO) 0.2 10^3/uL (0.0-0.7); EOSINOPHILS % (AUTO) 2.1 %; HCT - HEMATOCRIT 36.6 % (42.0-52.0); HGB - HEMOGLOBIN 11.5 g/dL (14.0-18.0); LYMPHOCYTES # (AUTO) 1.5 10^3/uL (1.5-3.5); MEAN CORPUSCULAR HEMOGLOBIN 31.3 pg (27.0-31.0); MEAN CORPUSCULAR HGB CONC 31.4 g/dL (32.0-36.0); MEAN CORPUSCULAR VOLUME 99.7 fL (80.0-94.0); MEAN PLATELET VOLUME 10.3 fL (7.4-11.4); MONOCYTES # (AUTO) 0.6 10^3/uL (0.0-1.0); MONOCYTES % (AUTO) 7.9 %; NEUTROPHILS # (AUTO) 4.9 10^3/uL (1.5-6.6); NEUTROPHILS % (AUTO) 68.3 %; PLT - PLATELET COUNT 182 10^3/uL (130-450); RED BLOOD COUNT 3.67 10^6/uL (4.70-6.10); RED CELL DISTRIBUTION WIDTH 12.8 % (12.0-15.0); WHITE BLOOD COUNT 7.2 x10^3/uL (4.8-10.8)
[2021-02-17 05:12] LABS: CALCIUM 8.8 mg/dL (8.5-10.3); CREATININE 0.7 mg/dL (0.6-1.2); POTASSIUM 3.5 mmol/L (3.5-5.0)
[2021-02-17] MEDS: SODIUM CHLORIDE FLUSH 0.9% 10 ML SYRINGE IVP PRN ×2 (05:37→11:02)
[2021-02-17] MEDS: FORMOTEROL FUMARATE NEB 20 MCG/2 ML INH SCH ×2 (07:06→19:19)
[2021-02-17] MEDS: BUDESONIDE 0.5 MG/2 ML NEB INH SCH ×2 (07:06→19:19)
[2021-02-17] MEDS ORDERED: FUROSEMIDE 40 MG/4 ML VIAL IVP STA (07:47)
[2021-02-17] MEDS: APIXABAN 5 MG TABLET PO SCH ×2 (08:35→21:52)
[2021-02-17] MEDS: POTASSIUM CHLORIDE 20 MEQ TABLET PO SCH (08:35)
[2021-02-17] MEDS: LEVOTHYROXINE 125 MCG TABLET PO SCH (08:35)
[2021-02-17] MEDS: diltiaZEM 30 MG TABLET PO SCH (09:55)
[2021-02-17] MEDS: METOPROLOL SUCCINATE 50 MG TABLET PO SCH (09:55)
--- NOTE | 2021-02-17 10:25 | PROVIDER PROGRESS NOTE ---
Subjective - Prog Note Date Prog Note Date: 02/17/21 - Subjective Subjective: He feels a little more short of breath today compared to yesterday. Denies any chest pain or cough. He does continue to complain of orthopnea. Still has lower extremity edema. Current Medications - Current Medications Current Medications: Active Medications Acetaminophen (Acetaminophen 325 Mg Tablet) 650 mg PO Q4HR PRN PRN Reason: Pain 1 to 4 Apixaban (Apixaban 5 Mg Tablet) 5 mg PO BID [facility] Last Admin: 02/17/21 08:35 Dose: 5 mg Documented by: Budesonide (Budesonide 0.5 Mg/2 Ml Neb) 0.5 mg INH RTBID [facility] Last Admin: 02/17/21 07:06 Dose: 0.5 mg Documented by: Clonazepam (Clonazepam 0.5 Mg Tablet) 0.5 mg PO DAILY PRN PRN Reason: Anxiety Last Admin: 02/16/21 08:15 Dose: 0.5 mg Documented by: Formoterol Fumarate (Formoterol Fumarate Neb 20 Mcg/2 Ml) 20 mcg INH RTBID [facility] Last Admin: 02/17/21 07:06 Dose: 20 mcg Documented by: Levalbuterol HCl (Levalbuterol 1.25 Mg/3 Ml Neb) 1.25 mg INH Q4H PRN PRN Reason: Shortness of Air/Wheezing Last Admin: 02/17/21 07:06 Dose: 1.25 mg Documented by: Levothyroxine Sodium (Levothyroxine 125 Mcg Tablet) 125 mcg PO DAILY [facility] Last Admin: 02/17/21 08:35 Dose: 125 mcg Documented by: Metoprolol Succinate (Metoprolol Succinate 50 Mg Tablet) 50 mg PO DAILY [facility] Last Admin: 02/17/21 09:55 Dose: Not Given Documented by: Morphine Sulfate (Morphine 2 Mg/Ml Carpuject) 1 mg IVP Q4HR PRN PRN Reason: Dyspnea Last Admin: 02/17/21 05:37 Dose: 1 mg Documented by: Ondansetron HCl (Ondansetron 4 Mg/2 Ml Vial) 4 mg IVP Q6HR PRN PRN Reason: Nausea / Vomiting Potassium Chloride (Potassium Chloride 20 Meq Tablet) 20 meq PO DAILY [facility] Last Admin: 02/17/21 08:35 Dose: 20 meq Documented by: Sodium Chloride (Sodium Chloride Flush 0.9% 10 Ml Syringe) 10 ml IVP PRN PRN PRN Reason: NEEDED PER PROVIDER ORDERS Last Admin: 02/17/21 05:37 Dose: 10 ml Documented by: Sodium Chloride (Sodium Chloride Flush 0.9% 10 Ml Syringe) 10 ml IVP 0100,0900,1700 [facility] Last Admin: 02/17/21 08:40 Dose: 10 ml Documented by: Levothyroxine Sodium [Tirosint] 125 mcg PO DAILY 01/29/13 Cyanocobalamin (Vitamin B-12) [Vitamin B-12] 2,500 mcg SL DAILY 02/28/13 Arformoterol Tartrate [Brovana] 15 mcg NEB DAILY 08/09/19 Budesonide 1 inh INH BID 08/09/19 Ipratropium/Albuterol [Duoneb] 3 ml INH DAILY 08/09/19 clonazePAM [Clonazepam] 0.5 - 1 mg PO DAILY PRN 08/09/19 Potassium Chloride [K-Dur] 20 meq PO DAILY 08/10/19 Albuterol Sulfate [Proair Hfa Inhaler] 1 puffs PO PRN PRN 02/15/21 Cholecalciferol (Vitamin D3) [Vitamin D3] 50 mcg PO DAILY 02/15/21 Metoprolol Succinate [Toprol Xl] 25 mg PO DAILY 02/15/21 Objective - Vital Signs/Intake & Output Reviewed Vital Signs: Yes Vital Signs: Vital Signs x48h Temp Pulse Pulse Resp BP Pulse Ox 02/17/21 09:53 128 H 95/70 02/17/21 08:35 124 H 99/64 02/17/21 08:23 36.4 C L 62 20 107/61 99 02/17/21 07:07 48 L 14 02/17/21 05:10 36.3 C L 72 14 113/64 93 02/17/21 02:52 84 18 Intake & Output: Intake & Output 02/14/21 02/15/21 02/16/21 02/17/21 23:59 23:59 23:59 23:59 Intake Total 200 1880 370 Output Total 675 1050 800 Balance -475 830 -430 - Objective General Appearance: positive: No acute distress Eyes Bilateral: positive: Normal inspection, Conjunctivae nml ENT: positive: ENT inspection nml Neck: positive: Nml inspection Respiratory: positive: No respiratory distress, Rales. negative: Wheezes, Rhonchi Cardiovascular: positive: Irregularly irregular. negative: Tachycardia, Systolic murmur Abdomen: positive: Non-tender, No distention. negative: Tenderness Skin: positive: Warm, Dry Extremities: positive: Pedal edema (+1 pitting edema at the ankles.) Neurologic/Psychiatric: negative: Disoriented to person, Disoriented to place - Lab Results Fish Bones: 02/17/21 04:47 02/17/21 04:47 Other Labs: Lab Results x24hrs 02/17/21 02/17/21 Range/Units 04:47 04:47 WBC 7.2 (4.8-10.8) x10^3/uL RBC 3.67 L (4.70-6.10) 10^6/uL Hgb 11.5 L (14.0-18.0) g/dL Hct 36.6 L (42.0-52.0) % MCV 99.7 H (80.0-94.0) fL MCH 31.3 H (27.0-31.0) pg MCHC 31.4 L (32.0-36.0) g/dL RDW 12.8 (12.0-15.0) % Plt Count 182 (130-450) 10^3/uL MPV 10.3 (7.4-11.4) fL Neut # (Auto) 4.9 (1.5-6.6) 10^3/uL Lymph # (Auto) 1.5 (1.5-3.5) 10^3/uL [place] # (Auto) 0.6 (0.0-1.0) 10^3/uL Eos # (Auto) 0.2 (0.0-0.7) 10^3/uL Baso # (Auto) 0.0 (0.0-0.1) 10^3/uL Absolute Nucleated RBC 0.00 x10^3/uL Nucleated RBC % 0.0 /100WBC Sodium 138 (135-145) mmol/L Potassium 3.5 (3.5-5.0) mmol/L Chloride 100 L (101-111) mmol/L Carbon Dioxide 29 (21-32) mmol/L Anion Gap 9.0 (6-13) BUN 23 H (6-20) mg/dL Creatinine 0.7 (0.6-1.2) mg/dL Estimated GFR (MDRD) 108 (>89) Glucose 105 H (70-100) mg/dL Calcium 8.8 (8.5-10.3) mg/dL ABX Reporting Has patient been on IV antibiotics over the past 48 hours?: No Assessment/Plan - Problem List (1) Atrial fibrillation with RVR Impression: He was unable to receive his morning dose of metoprolol and diltiazem due to hypotension with systolic in the 90s and now his heart is in the 120s. We will discontinue the diltiazem given the hypotension we will continue the metoprolol. We will give a one-time dose of digoxin IV again and consider oral digoxin as he may need this on discharge to help control his heart rate. The echocardiogram will be obtained today. We will continue to monitor on telemetry and continue Eliquis for anticoagulation. (2) Hypotension Impression: This is likely secondary to Lasix use this morning as well as the diltiazem he had been receiving. We will hold off on further Lasix again this afternoon and although he does need to be diuresed further, we will trial smaller doses of Lasix in the future with 20 mg IV. We will discontinue the diltiazem given the hypotension. Continue metoprolol to see if he will tolerate this alone. The hypotension is making it difficult to control his heart rate and he may need to consider digoxin in addition to the metoprolol. (3) Congestive heart failure Impression: He still does appear to be in acute congestive heart failure. We were unable to obtain echocardiogram today but this will be completed today to assess his LV function. He did receive Lasix this morning 40 mg IV but now has hypotension like related to the diuresis. We will hold off on further Lasix today and consider a lower dose tomorrow morning if he still needs IV diuresis. Continue with daily weights and strict I's and O's. Low-sodium diet. Follow-up echocardiogram. Qualifiers: Heart failure type: unspecified Heart failure chronicity: acute Qualified Code(s): I50.9 - Heart failure, unspecified (4) Elevated troponin Impression: This was felt to be demand ischemia secondary to the heart failure. His EKG did not suggest ischemia. An echocardiogram is being obtained today to assess for any wall motion abnormalities. (5) COPD (chronic obstructive pulmonary disease) Impression: Stable and not in exacerbation. Continue with his home inhalers and albuterol as needed. (6) Hypothyroidism Impression: His TSH was within normal limits. Continue Synthroid.
[2021-02-17] MEDS ORDERED: DIGOXIN 500 MCG/2 ML AMP IVP STA (10:26)
[2021-02-17] MEDS: clonazePAM 0.5 MG TABLET PO PRN (16:22)
[2021-02-17] MEDS ORDERED: METOPROLOL SUCCINATE 50 MG TABLET PO ONE (18:00)
[2021-02-17] MEDS ORDERED: METOPROLOL 5 MG/5 ML VIAL IVP STA (18:03)
[2021-02-18] MEDS: BUDESONIDE 0.5 MG/2 ML NEB INH SCH ×2 (05:00→18:25)
[2021-02-18] MEDS: FORMOTEROL FUMARATE NEB 20 MCG/2 ML INH SCH ×2 (05:00→18:24)
[2021-02-18] MEDS: LEVALBUTEROL 1.25 MG/3 ML NEB INH PRN ×3 (05:06→23:12)
[2021-02-18 05:08] LABS: BASOPHILS % (AUTO) 0.4 %; EOSINOPHILS # (AUTO) 0.2 10^3/uL (0.0-0.7); EOSINOPHILS % (AUTO) 2.2 %; HCT - HEMATOCRIT 36.6 % (42.0-52.0); HGB - HEMOGLOBIN 11.8 g/dL (14.0-18.0); LYMPHOCYTES # (AUTO) 1.4 10^3/uL (1.5-3.5); LYMPHOCYTES % (AUTO) 20.6 %; MEAN CORPUSCULAR HEMOGLOBIN 32.4 pg (27.0-31.0); MEAN CORPUSCULAR HGB CONC 32.2 g/dL (32.0-36.0); MEAN CORPUSCULAR VOLUME 100.5 fL (80.0-94.0); MEAN PLATELET VOLUME 10.1 fL (7.4-11.4); MONOCYTES # (AUTO) 0.7 10^3/uL (0.0-1.0); MONOCYTES % (AUTO) 10.2 %; NEUTROPHILS # (AUTO) 4.6 10^3/uL (1.5-6.6); NEUTROPHILS % (AUTO) 66.5 %; PLT - PLATELET COUNT 179 10^3/uL (130-450); RED BLOOD COUNT 3.64 10^6/uL (4.70-6.10); RED CELL DISTRIBUTION WIDTH 12.8 % (12.0-15.0); WHITE BLOOD COUNT 6.9 x10^3/uL (4.8-10.8)
[2021-02-18 05:18] LABS: CREATININE 0.7 mg/dL (0.6-1.2); POTASSIUM 3.9 mmol/L (3.5-5.0)
[2021-02-18 05:24] LABS: DIGOXIN 0.6 ng/mL
[2021-02-18] MEDS: clonazePAM 0.5 MG TABLET PO PRN (05:52)
[2021-02-18] MEDS: METOPROLOL TARTRATE 50 MG TABLET PO SCH ×2 (08:36→21:03)
[2021-02-18] MEDS: DIGOXIN 125 MCG TABLET PO SCH (08:36)
[2021-02-18] MEDS: SODIUM CHLORIDE FLUSH 0.9% 10 ML SYRINGE IVP SCH ×2 (08:36→16:24)
[2021-02-18] MEDS: LEVOTHYROXINE 125 MCG TABLET PO SCH (08:36)
[2021-02-18] MEDS: APIXABAN 5 MG TABLET PO SCH ×2 (08:36→21:04)
[2021-02-18] MEDS: POTASSIUM CHLORIDE 20 MEQ TABLET PO SCH (08:38)
--- NOTE | 2021-02-18 10:35 | PROVIDER PROGRESS NOTE ---
Subjective - Prog Note Date Prog Note Date: 02/18/21 - Subjective Subjective: He improved but still short of breath at times. Does feel better compared to admission and was able to ambulate a little bit more today. Denies any chest pain. Feels like his heart rate has slowed down. Current Medications - Current Medications Current Medications: Active Medications Acetaminophen (Acetaminophen 325 Mg Tablet) 650 mg PO Q4HR PRN PRN Reason: Pain 1 to 4 Apixaban (Apixaban 5 Mg Tablet) 5 mg PO BID [facility] Last Admin: 02/18/21 08:36 Dose: 5 mg Documented by: Budesonide (Budesonide 0.5 Mg/2 Ml Neb) 0.5 mg INH RTBID [facility] Last Admin: 02/18/21 05:00 Dose: 0.5 mg Documented by: Clonazepam (Clonazepam 0.5 Mg Tablet) 0.5 mg PO DAILY PRN PRN Reason: Anxiety Last Admin: 02/18/21 05:52 Dose: 0.5 mg Documented by: Digoxin (Digoxin 125 Mcg Tablet) 125 mcg PO DAILY [facility] Last Admin: 02/18/21 08:36 Dose: 125 mcg Documented by: Formoterol Fumarate (Formoterol Fumarate Neb 20 Mcg/2 Ml) 20 mcg INH RTBID [facility] Last Admin: 02/18/21 05:00 Dose: 20 mcg Documented by: Levalbuterol HCl (Levalbuterol 1.25 Mg/3 Ml Neb) 1.25 mg INH Q4H PRN PRN Reason: Shortness of Air/Wheezing Last Admin: 02/18/21 05:06 Dose: 1.25 mg Documented by: Levothyroxine Sodium (Levothyroxine 125 Mcg Tablet) 125 mcg PO QDAC [facility] Metoprolol Tartrate (Metoprolol Tartrate 50 Mg Tablet) 50 mg PO BID [facility] Last Admin: 02/18/21 08:36 Dose: 50 mg Documented by: Morphine Sulfate (Morphine 2 Mg/Ml Carpuject) 1 mg IVP Q4HR PRN PRN Reason: Dyspnea Last Admin: 02/17/21 05:37 Dose: 1 mg Documented by: Ondansetron HCl (Ondansetron 4 Mg/2 Ml Vial) 4 mg IVP Q6HR PRN PRN Reason: Nausea / Vomiting Potassium Chloride (Potassium Chloride 20 Meq Tablet) 20 meq PO DAILY [facility] Last Admin: 02/18/21 08:38 Dose: 20 meq Documented by: Sodium Chloride (Sodium Chloride Flush 0.9% 10 Ml Syringe) 10 ml IVP PRN PRN PRN Reason: NEEDED PER PROVIDER ORDERS Last Admin: 02/17/21 11:02 Dose: 10 ml Documented by: Sodium Chloride (Sodium Chloride Flush 0.9% 10 Ml Syringe) 10 ml IVP 0100,0900,1700 [facility] Last Admin: 02/18/21 08:36 Dose: 10 ml Documented by: Levothyroxine Sodium [Tirosint] 125 mcg PO DAILY 01/29/13 Cyanocobalamin (Vitamin B-12) [Vitamin B-12] 2,500 mcg SL DAILY 02/28/13 Arformoterol Tartrate [Brovana] 15 mcg NEB DAILY 08/09/19 Budesonide 1 inh INH BID 08/09/19 Ipratropium/Albuterol [Duoneb] 3 ml INH DAILY 08/09/19 clonazePAM [Clonazepam] 0.5 - 1 mg PO DAILY PRN 08/09/19 Potassium Chloride [K-Dur] 20 meq PO DAILY 08/10/19 Albuterol Sulfate [Proair Hfa Inhaler] 1 puffs PO PRN PRN 02/15/21 Cholecalciferol (Vitamin D3) [Vitamin D3] 50 mcg PO DAILY 02/15/21 Metoprolol Succinate [Toprol Xl] 25 mg PO DAILY 02/15/21 Objective - Vital Signs/Intake & Output Reviewed Vital Signs: Yes Vital Signs: Vital Signs x48h Temp Pulse Pulse Resp BP BP Pulse Ox 02/18/21 09:50 75 20 02/18/21 08:36 107/59 L 02/18/21 07:39 36.4 C L 72 20 110/67 92 02/18/21 05:07 72 18 02/18/21 04:59 36.4 C L 72 20 103/63 93 Intake & Output: Intake & Output 02/15/21 02/16/21 02/17/21 02/18/21 23:59 23:59 23:59 23:59 Intake Total 200 1880 1645 200 Output Total 675 1050 1175 325 Balance -475 830 470 -125 - Objective General Appearance: positive: No acute distress, Alert Eyes Bilateral: positive: Normal inspection, Conjunctivae nml ENT: positive: ENT inspection nml Neck: positive: Nml inspection Respiratory: positive: No respiratory distress, Wheezes (Faint expiratory wheezes). negative: Rales Cardiovascular: positive: Irregularly irregular. negative: Tachycardia, Bradycardia, Systolic murmur Abdomen: positive: Non-tender, No distention. negative: Tenderness, Guarding, Rebound Skin: positive: Warm, Dry Extremities: positive: Pedal edema (+1 pitting edema around the ankles but this appears improved) Neurologic/Psychiatric: negative: Disoriented to person, Disoriented to place - Lab Results Fish Bones: 02/18/21 04:40 02/18/21 04:40 Other Labs: Lab Results x24hrs 02/18/21 02/18/21 02/18/21 Range/Units 04:40 04:40 04:40 WBC 6.9 (4.8-10.8) x10^3/uL RBC 3.64 L (4.70-6.10) 10^6/uL Hgb 11.8 L (14.0-18.0) g/dL Hct 36.6 L (42.0-52.0) % MCV 100.5 H (80.0-94.0) fL MCH 32.4 H (27.0-31.0) pg MCHC 32.2 (32.0-36.0) g/dL RDW 12.8 (12.0-15.0) % Plt Count 179 (130-450) 10^3/uL MPV 10.1 (7.4-11.4) fL Neut # (Auto) 4.6 (1.5-6.6) 10^3/uL Lymph # (Auto) 1.4 L (1.5-3.5) 10^3/uL [place] # (Auto) 0.7 (0.0-1.0) 10^3/uL Eos # (Auto) 0.2 (0.0-0.7) 10^3/uL Baso # (Auto) 0.0 (0.0-0.1) 10^3/uL Absolute Nucleated RBC 0.00 x10^3/uL Nucleated RBC % 0.0 /100WBC Sodium 138 (135-145) mmol/L Potassium 3.9 (3.5-5.0) mmol/L Chloride 102 (101-111) mmol/L Carbon Dioxide 29 (21-32) mmol/L Anion Gap 7.0 (6-13) BUN 20 (6-20) mg/dL Creatinine 0.7 (0.6-1.2) mg/dL Estimated GFR (MDRD) 108 (>89) Glucose 101 H (70-100) mg/dL Calcium 9.0 (8.5-10.3) mg/dL Last Dose Date 02/17/21 Last Dose Time 1026 Digoxin 0.6 ng/mL ABX Reporting Has patient been on IV antibiotics over the past 48 hours?: No Assessment/Plan - Problem List (1) Atrial fibrillation with RVR Impression: His heart rate is better controlled after initiating digoxin. It was elevated yesterday evening but this was due to him not receiving his morning dose of metoprolol and diltiazem due to hypotension. His blood pressure today is relatively stable. We will continue metoprolol 50 mg twice daily and will start him on oral digoxin daily. If his blood pressure heart rate remains stable then he can likely be discharged tomorrow. We will continue Eliquis for anticoagulation. Continue to monitor on telemetry. (2) Hypotension Impression: His blood pressure is improved after we discontinued the diltiazem although it remains borderline with systolics in the 100s. We will continue his current dose of metoprolol 50 mg but will switch to tartrate twice daily to help control his heart rate. We will ensure that his blood pressure remained stable on this dose and if so he may be able to be discharged home tomorrow morning. (3) Congestive heart failure Impression: The concern is still for acute heart failure with preserved ejection fraction. His echocardiogram showed no significant valvular disease and his ejection fraction is preserved. He still has some dyspnea with exertion and lower extremity edema. His weight had decreased yesterday but today it is up by 0.5 kg. We did give him a dose of Lasix 40 mg IV yesterday but this caused hypotension. Given his blood pressure is relatively stable right now, we will give him a one-time dose of Lasix 20 mg IV. We will repeat a chest x-ray today. We will continue with a low-sodium diet, strict I's and O's, daily weights. Qualifiers: Heart failure type: diastolic Heart failure chronicity: acute Qualified Code(s): I50.31 - Acute diastolic (congestive) heart failure (4) Elevated troponin Impression: This was felt to be demand ischemia secondary to atrial fibrillation and heart failure. His echocardiogram showed no wall motion abnormalities. (5) COPD (chronic obstructive pulmonary disease) Impression: Stable and not in exacerbation. Continue home inhalers. (6) Hypothyroidism Impression: His TSH was within normal limits. Continue current dose of Synthroid.
[2021-02-18] MEDS ORDERED: FUROSEMIDE 20 MG/2 ML VIAL IVP STA (10:37)
[2021-02-18] MEDS: SODIUM CHLORIDE FLUSH 0.9% 10 ML SYRINGE IVP PRN (10:53)
--- NOTE | 2021-02-18 11:19 | XRAY Report ---
PROCEDURE: Chest 1 View X-Ray INDICATIONS: Cough. Dyspnea. CHF. TECHNIQUE: One view of the chest was acquired. COMPARISON: None FINDINGS: Surgical changes and devices: None. Lungs and pleura: No pleural effusions or pneumothorax. Lungs are clear. Mediastinum: Mediastinal contours appear normal. Heart size is normal. Bones and chest wall: No suspicious bony lesions. Overlying soft tissues appear unremarkable. IMPRESSION: No acute cardiopulmonary abnormality. Reviewed by: Yobani Tracy on 02/18/2021 11:18 AM PDT Approved by: Yobani Tracy on 02/18/2021 11:18 AM PDT Station ID: [id number]
[2021-02-18] MEDS: SERTRALINE 50 MG TABLET PO SCH (14:38)
[2021-02-18] MEDS: IPRATROPIUM/ALBUTEROL 3 ML NEB INH PRN (18:24)
[2021-02-19] MEDS: SODIUM CHLORIDE FLUSH 0.9% 10 ML SYRINGE IVP SCH ×2 (00:39→08:29)
[2021-02-19 05:01] LABS: BASOPHILS % (AUTO) 0.4 %; EOSINOPHILS # (AUTO) 0.1 10^3/uL (0.0-0.7); EOSINOPHILS % (AUTO) 1.2 %; HGB - HEMOGLOBIN 11.9 g/dL (14.0-18.0); LYMPHOCYTES # (AUTO) 1.3 10^3/uL (1.5-3.5); LYMPHOCYTES % (AUTO) 15.6 %; MEAN CORPUSCULAR HGB CONC 32.2 g/dL (32.0-36.0); MEAN CORPUSCULAR VOLUME 99.5 fL (80.0-94.0); MEAN PLATELET VOLUME 10.7 fL (7.4-11.4); MONOCYTES # (AUTO) 0.8 10^3/uL (0.0-1.0); MONOCYTES % (AUTO) 9.6 %; NEUTROPHILS # (AUTO) 6.2 10^3/uL (1.5-6.6); NEUTROPHILS % (AUTO) 72.8 %; PLT - PLATELET COUNT 166 10^3/uL (130-450); RED BLOOD COUNT 3.72 10^6/uL (4.70-6.10); RED CELL DISTRIBUTION WIDTH 12.7 % (12.0-15.0); WHITE BLOOD COUNT 8.4 x10^3/uL (4.8-10.8)
[2021-02-19 05:12] LABS: CALCIUM 8.8 mg/dL (8.5-10.3); CREATININE 0.8 mg/dL (0.6-1.2)
[2021-02-19] MEDS: IPRATROPIUM/ALBUTEROL 3 ML NEB INH PRN ×2 (06:40→11:25)
[2021-02-19] MEDS: BUDESONIDE 0.5 MG/2 ML NEB INH SCH (06:40)
[2021-02-19] MEDS: FORMOTEROL FUMARATE NEB 20 MCG/2 ML INH SCH (06:40)
[2021-02-19] MEDS ORDERED: LEVOTHYROXINE 125 MCG TABLET PO SCH (07:00)
[2021-02-19] MEDS ORDERED: FUROSEMIDE 20 MG TABLET PO SCH (08:00)
[2021-02-19] MEDS: clonazePAM 0.5 MG TABLET PO PRN (08:25)
[2021-02-19] MEDS: SERTRALINE 50 MG TABLET PO SCH (08:25)
[2021-02-19] MEDS: METOPROLOL TARTRATE 50 MG TABLET PO SCH (08:25)
[2021-02-19] MEDS: POTASSIUM CHLORIDE 20 MEQ TABLET PO SCH (08:26)
[2021-02-19] MEDS: DIGOXIN 125 MCG TABLET PO SCH (08:26)
[2021-02-19] MEDS: APIXABAN 5 MG TABLET PO SCH (08:27)
--- NOTE | 2021-02-19 08:53 | Discharge Plan ---
Discharge Plan Problem Reviewed?: Yes Disposition: Home Health Service Condition: Stable Prescriptions: Apixaban [Eliquis] 5 mg PO BID #60 tablet Digoxin [Lanoxin] 125 mcg PO DAILY #30 tablet Furosemide [Lasix] 20 mg PO BIDDIURETIC #60 tablet Metoprolol Tartrate [Lopressor] 50 mg PO BID #60 tablet Diet: Cardiac Activity Restrictions: Activity as Tolerated Assistance Devices: Walker Instruction Topics: Apixaban oral tablets, Metoprolol tablets, Furosemide tablets, Digoxin, Atrial Fibrillation Dc Health Concerns: You were seen in the hospital because you were found to have an elevated heart rate due to atrial fibrillation. You were started on medications to help control your heart rate and now this is stable. You were also started on a blood thinner to help reduce your risk of stroke that is associated with atrial fibrillation. It also appeared that you had a little bit of fluid around her lungs likely due to heart failure which can occur when your heart rate is very fast. We did an ultrasound of your heart which showed that your heart function is within normal limits. We did adjust your water pill and you will only take the Lasix 20 mg twice a day. Plan of Treatment: Please begin to take metoprolol 50 mg twice a day. You were previously taking metoprolol 25 extended release once a day. Please begin to take digoxin 125 mcg once a day. Please decrease your Lasix dose to 20 mg twice daily from 40 mg twice daily. Please stop taking Cardia. Care Goals: The goal is to help control your heart rate and prevent further exacerbations of heart failure. Assessment: The patient expressed understanding of the treatment plan. Additional Instructions or Follow Up instructions: Please follow-up with your primary care provider in 1 week and to follow-up with the supplies packer as previously scheduled. [facility]-Up Care: [facility] No Smoking: If you smoke, Please STOP! Call for help. Follow-up with: Daniella Childers ARNP [Primary Care Provider] -
[2021-02-19 11:19] VITALS: BP 117/75
--- NOTE | 2021-02-19 12:14 | DISCHARGE SUMMARY ---
"Discharge Summary Admit Date: 02/15/21 Discharge Date: 02/19/21 Discharging Provider: Driss Shea Primary Care Provider: Daniella Childers Code Status: Attempt Resuscitation Condition at Discharge: Stable Discharge Disposition: Home Health Service - DIAGNOSES Admission Diagnoses: Atrial fibrillation with RVR COPD Anxiety Hypothyroidism Depression Elevated troponin Lower extremity edema Discharge Diagnoses with Status of Each Condition: Atrial fibrillation with rapid ventricular response - resolved. Hypotension - resolved. Diastolic heart failure - resolved. Elevated troponin - stable. COPD - stable. Hypothyroidism - stable. Anxiety - stable. - HPI History of Present Illness: H&P per Dr. Wilde: Patient is 85-year-old male with medical history significant for emphysema/COPD, hypothyroidism, anxiety, atrial fibrillation who presented to the ED with complaint of dizziness and weakness which has been going on for couple of weeks. Today he reports falling down when he got out of bed. In the ED work-up indicated he was in atrial fibrillation with a rapid ventricular rhythm. His heart rate was as high as 140. He was in the ED about a week ago with similar presentation. It was requested that he stay overnight for monitoring and an echocardiogram. However the patient declined. Currently at bedside he denies chest pain, dyspnea, abdominal pain, nausea, vomiting, fever or chills. He has lower extremity edema. He is on Lasix 40 mg p.o. twice daily at home. He gets around the house using a walker. He lives with his . He is independent of activities of daily living but does not drive. He was admitted for better control of his atrial fibrillation and for a 2D echocardiogram in the morning. - CONSULTS | PROCEDURES Procedures: His echocardiogram on February 17 revealed moderate to severe concentric LVH. Ejection fraction of 55 to 60%. Moderate increase in the left atrial volume index. Moderate to severe aortic valve sclerosis without evidence of aortic stenosis. - HOSPITAL COURSE Hospital Course: He was admitted for atrial fibrillation with RVR. His heart rate improved with diltiazem IV and he was started on oral metoprolol 50 mg daily. He was continued on his home oral Lasix as it was felt that he was in heart failure at the time. Troponins were checked and these were mildly elevated but flat and it was felt to be demand ischemia given the heart failure. He was also started on oral diltiazem in addition to the metoprolol for rate control. Unfortunately, overnight he became hypotensive and was still tachycardic. It was felt that this was likely related to the diltiazem and so this dose was decreased and we tried staggered doses of Cardizem 60 mg throughout the day and we also decreased his Lasix to once a day. We did administer IV digoxin which did improve his hea rt rate. He was also started on Eliquis for anticoagulation given the atrial fibrillation. Despite these adjustments, he continued to have episodes of hypotension and so the diltiazem was discontinued and he was continued on just metoprolol. We did give him another dose of IV digoxin to help control his heart rate. Repeat chest x-ray did show some pulmonary vascular congestion and so we did administer IV Lasix but at 20 mg to prevent further hypotension. His lower extremity edema and dyspnea did improve with the IV diuresis. We will able to get his heart rate controlled with just oral metoprolol and oral digoxin. His blood pressure has also been stable on this regimen. He was evaluated by PT and home health PT was recommended and so a referral was placed. We also placed a referral to CHF class and the [facility] for cardiac/pulmonary rehab given his history of heart failure and COPD. He is now stable for discharge. He will be following up with his primary care provider next week and he will be seeing a coater carbon paper for the first time the following week. On discharge I have asked him to take metoprolol 50 mg twice a day and to begin taking digoxin 125 mcg daily. I have also decrease his Lasix dose to 20 mg twice daily from 40 mg twice daily given his borderline hypotension at times. He will also be taking Eliquis and a prescription was sent to his pharmacy for this. - ALLERGIES Allergies/Adverse Reactions: Allergies Allergy/AdvReac Type Severity Reaction Status Date / Time No Known Drug Allergies Allergy Verified 02/15/21 12:15 - MEDICATIONS Home Medications: Ambulatory Orders Medication Instructions Recorded Confirmed Levothyroxine Sodium [Tirosint] 125 mcg PO DAILY 01/29/13 02/15/21 Cyanocobalamin (Vitamin B-12) 2,500 mcg SL DAILY 02/28/13 02/15/21 [Vitamin B-12] Arformoterol Tartrate [Brovana] 15 mcg NEB DAILY 08/09/19 02/15/21 Budesonide 1 inh INH BID 08/09/19 02/15/21 Ipratropium/Albuterol [Duoneb] 3 ml INH DAILY 08/09/19 02/15/21 clonazePAM [Clonazepam] 0.5 - 1 mg PO DAILY PRN 08/09/19 02/15/21 Potassium Chloride [K-Dur] 20 meq PO DAILY 08/10/19 02/15/21 Albuterol Sulfate [Proair Hfa 1 puffs PO PRN PRN 02/15/21 02/15/21 Inhaler] Cholecalciferol (Vitamin D3) 50 mcg PO DAILY 02/15/21 02/15/21 [Vitamin D3] Sertraline [Zoloft] 50 mg PO DAILY 02/18/21 02/18/21 Apixaban [Eliquis] 5 mg PO BID #60 tablet 02/19/21 Digoxin [Lanoxin] 125 mcg PO DAILY #30 tablet 02/19/21 Furosemide [Lasix] 20 mg PO BIDDIURETIC #60 tablet 02/19/21 Metoprolol Tartrate [Lopressor] 50 mg PO BID #60 tablet 02/19/21 - PHYSICAL EXAM AT DISCHARGE General Appearance: positive: No acute distress, Alert Eyes Bilateral: positive: Normal inspection, Conjunctivae nml ENT: positive: ENT inspection nml Neck: positive: Nml inspection Respiratory: positive: No respiratory distress. negative: Wheezes, Rales Cardiovascular: positive: Irregularly irregular. negative: Tachycardia, Bradycardia, Systolic murmur Abdomen: positive: Non-tender, No distention. negative: Tenderness, Guarding, Rebound Skin: positive: Warm, Dry Extremities: positive: Pedal edema (Trace to +1 pitting edema in the bilateral ankles.) Neurologic/Psychiatric: negative: Disoriented to person, Disoriented to place Physical Exam Other/Comments: Vital Signs - 24 hr 02/18/21 02/18/21 02/18/21 15:00 16:11 18:26 Temperature 36.6 C Heart Rate 70 105 H Heart Rate [ 72 Brachial] Respiratory 20 20 20 Rate Blood Pressure Blood Pressure 110/72 [Left Brachial artery] O2 Saturation 92 02/18/21 02/18/21 02/18/21 20:40 21:03 23:12 Temperature 37.3 C Heart Rate 49 L Heart Rate [ 63 Brachial] Respiratory 24 18 Rate Blood Pressure 107/59 L Blood Pressure 117/59 L [Left Brachial artery] O2 Saturation 95 02/19/21 02/19/21 02/19/21 01:00 02:28 05:00 Temperature 36.7 C 37.1 C Heart Rate 72 Heart Rate [ 72 94 Brachial] Respiratory 16 16 16 Rate Blood Pressure Blood Pressure 109/71 91/54 L [Left Brachial artery] O2 Saturation 93 94 02/19/21 02/19/21 02/19/21 06:40 07:54 08:25 Temperature 36.5 C Heart Rate 49 L Heart Rate [ 68 Brachial] Respiratory 20 20 Rate Blood Pressure 134/75 H Blood Pressure 134/75 H [Left Brachial artery] O2 Saturation 92 02/19/21 02/19/21 11:18 11:27 Temperature 36.5 C Heart Rate 70 Heart Rate [ 71 Brachial] Respiratory 18 20 Rate Blood Pressure Blood Pressure 117/75 [Left Brachial artery] O2 Saturation 95 Oxygen O2 Source Room air - LABS Result Diagrams: 02/19/21 04:33 02/19/21 04:33 - FOLLOW UP Follow Up: He will be following up with his primary care provider next week and his new c ardiologist of the following week. I did ask him to check his weight on a daily basis and to call his primary provider if he gains 2 to 3 pounds or notices an increase in his lower extremity edema as he may benefit from an extra dose of Lasix. - TIME SPENT Time Spent in Discharge (Minutes): 32"
== END 2021-02-19 13:00 | disposition home health service (06) | DRG 308 ==
LOC: ED 11:56 → MS2 14:07 → OBSVTOIN 02-16 01:44
PROVIDERS: ADMIT Internal Medicine; ATTEND Internal Medicine
DX: I48.91 Unspecified atrial fibrillation (principal); I50.31 Acute diastolic (congestive) heart failure; T50.915A Adverse effect of multiple unspecified drugs, medicaments and biological substances, initial encounter; I95.2 Hypotension due to drugs; I48.92 Unspecified atrial flutter; T46.1X5A Adverse effect of calcium-channel blockers, initial encounter; I50.9 Heart failure, unspecified; T50.1X5A Adverse effect of loop [high-ceiling] diuretics, initial encounter; Y92.230 Patient room in hospital as the place of occurrence of the external cause; J43.9 Emphysema, unspecified; I35.8 Other nonrheumatic aortic valve disorders; F41.9 Anxiety disorder, unspecified; E03.9 Hypothyroidism, unspecified; F32.9 Major depressive disorder, single episode, unspecified; Z20.822 Contact with and (suspected) exposure to COVID-19; R77.8 Other specified abnormalities of plasma proteins; G62.9 Polyneuropathy, unspecified; R35.1 Nocturia; R35.0 Frequency of micturition; Z91.81 History of falling; Z79.51 Long term (current) use of inhaled steroids; Z79.899 Other long term (current) drug therapy; Z87.891 Personal history of nicotine dependence
CPT/HCPCS: 36415; 71045; 80048; 80053; 80162; 83690; 83735; 83880; 84443; 84484; 85025; 87631; 93005; 93306; 94640; 96374; 96375; 97116; 97161; 99285; A9270; G0378; J1650; J7626; 0202U

== ENCOUNTER 2021-03-22 13:31 | Outpatient (CLI) | payer MEDICARE ==
[2021-03-22 20:27] LABS: DIGOXIN 0.4 ng/mL
== END 2021-03-22 13:32 | disposition home or self-care (01) ==
LOC: LAB.S 13:31
PROVIDERS: ATTEND Registered Nurse
DX: I48.91 Unspecified atrial fibrillation (principal)
CPT/HCPCS: 36415; 80162

== ENCOUNTER 2021-08-23 10:53 | Inpatient (IN) | payer MEDICARE ==
[2021-08-23 11:34] LABS: BASOPHILS % (AUTO) 0.3 %; EOSINOPHILS # (AUTO) 0.2 10^3/uL (0.0-0.7); EOSINOPHILS % (AUTO) 1.4 %; HCT - HEMATOCRIT 24.1 % (42.0-52.0); HGB - HEMOGLOBIN 7.9 g/dL (14.0-18.0); LYMPHOCYTES # (AUTO) 1.7 10^3/uL (1.5-3.5); LYMPHOCYTES % (AUTO) 14.7 %; MEAN CORPUSCULAR HEMOGLOBIN 33.5 pg (27.0-31.0); MEAN CORPUSCULAR HGB CONC 32.8 g/dL (32.0-36.0); MEAN CORPUSCULAR VOLUME 102.1 fL (80.0-94.0); MEAN PLATELET VOLUME 9.9 fL (7.4-11.4); MONOCYTES # (AUTO) 0.9 10^3/uL (0.0-1.0); MONOCYTES % (AUTO) 7.7 %; NEUTROPHILS # (AUTO) 8.9 10^3/uL (1.5-6.6); NEUTROPHILS % (AUTO) 75.3 %; PLT - PLATELET COUNT 223 10^3/uL (130-450); RED BLOOD COUNT 2.36 10^6/uL (4.70-6.10); RED CELL DISTRIBUTION WIDTH 14.4 % (12.0-15.0); WHITE BLOOD COUNT 11.8 x10^3/uL (4.8-10.8)
[2021-08-23] MEDS ORDERED: diltiaZEM INJ 5 MG/ML VIAL IVP STA (11:35)
--- NOTE | 2021-08-23 11:39 | ED Physician Documentation ---
History of Present Illness - Stated complaint Stated Complaint: SOA - Chief complaint Chief Complaint: Resp - Additonal information Additional information: 86-year-old male presents the emergency department for evaluation of melena for about 1 week, increasing shortness of air with exertion as well as orthopnea and feeling faint and clammy though no syncope. He is denying chest pain. This gentleman has a history of atrial fib and flutter controlled with digoxin and metoprolol. He is on Xarelto. He is denying any abdominal pain. Reports colonoscopy about 8 years ago that was unremarkable. PMH: afib/flutter, COPD< hypothyroidism Review of Systems Constitutional: denies: Fever, Chills Ears: reports: Reviewed and negative Nose: reports: Reviewed and negative Throat: reports: Reviewed and negative Cardiac: reports: Palpitations. denies: Chest pain / pressure, Pedal edema, Calf pain Respiratory: reports: Dyspnea. denies: Cough, Hemoptysis, Wheezing GI: reports: Bloody / black stool. denies: Abdominal Pain, Nausea, Vomiting : denies: Dysuria, Frequency PD PAST MEDICAL HISTORY - Past Medical History Cardiovascular: None, Atrial fibrillation Respiratory: Emphysema Neuro: Peripheral neuropathy Endocrine/Autoimmune: HyPOthyroidism GI: None : Nocturia, Frequency Psych: Anxiety Musculoskeletal: Osteoarthritis Derm: Other - Past Surgical History Past Surgical History: Yes Ortho: Arthroscopic surgery - Present Medications Home Medications: Ambulatory Orders Medication Instructions Recorded Confirmed Levothyroxine Sodium [Tirosint] 125 mcg PO DAILY 01/29/13 08/23/21 Cyanocobalamin (Vitamin B-12) 2,500 mcg SL DAILY 02/28/13 08/23/21 [Vitamin B-12] Arformoterol Tartrate [Brovana] 15 mcg NEB DAILY 08/09/19 08/23/21 Budesonide 1 inh INH BID 08/09/19 08/23/21 Ipratropium/Albuterol [Duoneb] 3 ml INH DAILY 08/09/19 08/23/21 clonazePAM [Clonazepam] 0.5 - 1 mg PO DAILY PRN 08/09/19 08/23/21 Potassium Chloride [K-Dur] 20 meq PO DAILY 08/10/19 08/23/21 Albuterol Sulfate [Proair Hfa 1 puffs PO PRN PRN 02/15/21 08/23/21 Inhaler] Cholecalciferol (Vitamin D3) 50 mcg PO DAILY 02/15/21 08/23/21 [Vitamin D3] Sertraline [Zoloft] 50 mg PO DAILY 02/18/21 08/23/21 Digoxin [Lanoxin] 125 mcg PO DAILY #30 tablet 02/19/21 08/23/21 Furosemide [Lasix] 20 mg PO BIDDIURETIC #60 tablet 02/19/21 08/23/21 Metoprolol Tartrate [Lopressor] 50 mg PO BID #60 tablet 02/19/21 08/23/21 Rivaroxaban [Xarelto] 20 mg PO QDDINNER #30 tablet 02/21/21 08/23/21 - Allergies Allergies/Adverse Reactions: Allergies Allergy/AdvReac Type Severity Reaction Status Date / Time No Known Drug Allergies Allergy Verified 08/23/21 11:06 - Social History Does the pt smoke?: No Smoking Status: Former smoker Does the pt drink ETOH?: Yes Does the pt have substance abuse?: No - Immunizations Immunizations are current?: Yes - POLST Patient has POLST: No POLST Status: Full Code (pt report he request CPR but no incubation) PD ED PE EXPANDED - General General: Alert, No acute distress - Cardiac Cardiac: Regular Rate, Tachy, Murmur Present, Radial strong equal, Pedal strong equal, Cap refill < 2 sec - Respiratory Respiratory: Clear to ausultation millicent. No: Distress, Labored - Abdomen Abdomen: Normal Bowel sounds. No: Tender to palpation - Rectal Rectal: Steam Clothes Press Operator present, Other (Beny melena in the rectal vault. Nontender) - Derm Derm: Normal color, Warm and dry. No: Rash - Extremities Extremities: Normal. No: Deformity, Tenderness - Neuro Neuro: Alert and Oriented X 3, CNII-XII intact, Normal gait, Normal finger nose, Normal speech - GCS Eye Opening: Spontaneous Motor: Obeys Commands Verbal: Oriented Total: 15 Results - Vitals Vitals: Vital Signs - 24 hr 08/23/21 11:06 Temperature 36 C L Heart Rate 122 H Respiratory 18 Rate Blood Pressure 90/51 L O2 Saturation 98 Oxygen O2 Source Room air - EKG (time done) 1119 Rate: Rate (enter#) (125) Rhythm: Sinus tachycardia [place]: Other Intervals: Normal OR. No: Prolonged QT QRS: LVH Compare to prior EKG: Changed from prior EKG (previous showed fib) Computer interpretation: Agree with computer - Labs Labs: Laboratory Tests 08/23/21 08/23/21 08/23/21 11:25 11:25 11:25 WBC 11.8 H RBC 2.36 L Hgb 7.9 L Hct 24.1 L MCV 102.1 H MCH 33.5 H MCHC 32.8 RDW 14.4 Plt Count 223 MPV 9.9 Neut # (Auto) 8.9 H Lymph # (Auto) 1.7 Todd # (Auto) 0.9 Eos # (Auto) 0.2 Baso # (Auto) 0.0 Absolute Nucleated RBC 0.00 Nucleated RBC % 0.0 PT INR APTT Sodium 135 Potassium 3.7 Chloride 101 Carbon Dioxide 24 Anion Gap 10.0 BUN 44 H Creatinine 0.7 Estimated GFR (MDRD) 107 Glucose 112 H Calcium 8.8 Total Bilirubin 0.8 AST 37 ALT 37 Alkaline Phosphatase 63 Troponin I High Sens 84.3 H* B-Natriuretic Peptide Total Protein 6.0 L Albumin 3.4 Globulin 2.6 Albumin/Globulin Ratio 1.3 Lipase 31 TSH Thyroxine (T4) Last Dose Date Last Dose Time Digoxin 08/23/21 08/23/21 08/23/21 11:25 11:25 11:25 WBC RBC Hgb Hct MCV MCH MCHC RDW Plt Count MPV Neut # (Auto) Lymph # (Auto) Todd # (Auto) Eos # (Auto) Baso # (Auto) Absolute Nucleated RBC Nucleated RBC % PT INR APTT Sodium Potassium Chloride Carbon Dioxide Anion Gap BUN Creatinine Estimated GFR (MDRD) Glucose Calcium Total Bilirubin AST ALT Alkaline Phosphatase Troponin I High Sens B-Natriuretic Peptide 504 H Total Protein Albumin Globulin Albumin/Globulin Ratio Lipase TSH 14.71 H Thyroxine (T4) Last Dose Date UNK Last Dose Time UNK Digoxin 0.4 08/23/21 08/23/21 11:25 11:37 WBC RBC Hgb Hct MCV MCH MCHC RDW Plt Count MPV Neut # (Auto) Lymph # (Auto) Todd # (Auto) Eos # (Auto) Baso # (Auto) Absolute Nucleated RBC Nucleated RBC % PT 21.5 H INR 1.9 H APTT 31.5 Sodium Potassium Chloride Carbon Dioxide Anion Gap BUN Creatinine Estimated GFR (MDRD) Glucose Calcium Total Bilirubin AST ALT Alkaline Phosphatase Troponin I High Sens B-Natriuretic Peptide Total Protein Albumin Globulin Albumin/Globulin Ratio Lipase TSH Thyroxine (T4) 6.65 Last Dose Date Last Dose Time Digoxin - Rads (name of study) CT abd Radiology: Final report received (Diverticulosis without-itis. Cholelithiasis. 3 cm exophytic cyst in the inferior pole of the left kidney. Moderate sized hiatal hernia. Moderate coronary artery calcifications. Fat-containing left inguinal hernia. Compression fracture of L4 with vertebroplasty) CXR Radiology: Final report received (No acute process) PD MEDICAL DECISION MAKING - ED course Complexity details: reviewed results, re-evaluated patient, d/w patient, d/w marketing operations consultant (Deb) ED course: 86-year-old male who has history of atrial fib/flutter and is anticoagulated on Xarelto presents the emergency department for 1 week of melena, feeling clammy somewhat faint and dizzy. He denies any chest pain but does have some mild exertional dyspnea as well as orthopnea. His screening EKG is nonischemic but we do note a rapid rate of about 120 which appears to be sinus. There may be an underlying flutter with 2 1 conduction however. Patient was initially given 5 mg of diltiazem for rate control however his heart rate remained in the 120s. Screening labs further show more pronounced anemia with a hemoglobin of 7.9. This is a 4 g drop from her most recent labs. We also note a troponin greater than 80. This likely represents a demand ischemia given his heart rate and lack of ischemic changes on the EKG. Repeat troponin is static/flat at 81. . Patient had no elicited abdominal pain. I discussed the case with on-call surgeon Dr. Boyd who agrees that the patient should be admitted to the hospita list service for evaluation and treatment of his tachycardia but that he would likely need an EGD which she is happy to do likely tomorrow once we can assure that his Xarelto has not been delivered for at least 24 hours. I spoke with Who graciously agrees to admit the patient for further evaluation and treatment. CT of the abdomen and pelvis is pending. Departure - Departure Disposition: 66 [facility] DC/Xfer Clinical Impression: Melena, Elevated troponin GI bleed Qualifiers: GI bleed type/associated pathology: melena Qualified Code(s): K92.1 - Melena Discharge Date/Time: 08/23/21 14:11
[2021-08-23 11:48] LABS: INR 1.9 (0.8-1.2); PT - PROTHROMBIN TIME 21.5 secs (9.9-12.6)
[2021-08-23 11:56] LABS: PARTIAL THROMBOPLASTIN TIME 31.5 secs (24.9-33.3)
[2021-08-23 11:58] LABS: ALBUMIN 3.4 g/dL (3.2-5.5); ALBUMIN/GLOBULIN RATIO 1.3 (1.0-2.2); BILIRUBIN,TOTAL 0.8 mg/dL (0.2-1.0); CALCIUM 8.8 mg/dL (8.5-10.3); CREATININE 0.7 mg/dL (0.6-1.2); DIGOXIN 0.4 ng/mL; POTASSIUM 3.7 mmol/L (3.5-5.0)
--- NOTE | 2021-08-23 12:09 | XRAY Report ---
PROCEDURE: Chest 1 View X-Ray INDICATIONS: Chest Pain TECHNIQUE: One view of the chest was acquired. COMPARISON: 02/18/2021 FINDINGS: Surgical changes and devices: None. Lungs and pleura: There is elevation of the right hemidiaphragm. Linear opacities are redemonstrated in the right lung base likely representing atelectasis. No pleural effusions or pneumothorax. Mediastinum: Mediastinal contours appear unchanged. Heart size is normal. Bones and chest wall: No suspicious bony lesions. Overlying soft tissues appear unremarkable. IMPRESSION: 1. No acute cardiopulmonary disease. Reviewed by: Rolf Grajeda MD on 08/23/2021 12:08 PM [facility] Approved by: Rolf Grajeda MD on 08/23/2021 12:08 PM [facility] Station ID: [id number]
[2021-08-23] MEDS ORDERED: ONDANSETRON 4 MG/2 ML VIAL IVP PRN (12:11)
[2021-08-23] MEDS ORDERED: IOPAMIDOL-300 100 ML VIAL ONE (12:18)
--- NOTE | 2021-08-23 12:24 | HISTORY & PHYSICAL EXAMINATION ---
Chief Complaint - Chief Complaint Chief Complaint: melena, dyspnea History of Present Illness - Admitted From Admitted From:: [facility] ED - History Obtained From Records Reviewed: yes History obtained from: patient - History of Present Illness HPI Comment/Other: Patient is an 86-year-old male who presented to the ED with complaint of dyspnea, anxiety and melena. Melena has been going on for 1 week. He was concerned today when he became significantly dyspneic. He felt it was due to anxiety and took an Ativan which did not result in any improvement. He also complained of dizziness, weakness and chills. In the ED on rectal exam he was n oted to have melena. His hemoglobin was 7.9. His hemoglobin has dropped 4 points in the past 6 months. He was also very tachycardic with heart rate as high as 125. Troponin was 84.3 and 81.2. He has atrial fibrillation and is on Xarelto, Toprol-XL and Cardizem CD. As a result of this findings he was presented for admission. At bedside he is resting comfortably. He denies chest pain, abdominal pain, nausea, vomiting or fever. History - Past Medical History Cardiovascular: reports: None, Atrial fibrillation Respiratory: reports: Emphysema Neuro: reports: Peripheral neuropathy Endocrine/Autoimmune: reports: HyPOthyroidism GI: reports: None : reports: Nocturia, Frequency Psych: reports: Anxiety Musculoskeletal: reports: Osteoarthritis Derm: reports: Other MRSA Hx?: No - Past Surgical History Ortho: reports: Arthroscopic surgery - Family & Social History Family History: Mother: , COPD/Emphysema, Father: , Cancer Family History Comment/Other: His parents had hx of heavy cigarette smoking. His mother from COPD, his father from cancer. He has three children. Living Situation: With spouse/s.o. Social History Notes: He reports a 30yr history of smoking. He denies alcohol and drug issue. He lives with his in [facility] - POLST Patient has POLST: No POLST Status: Full Code (pt report he request CPR but no incubation) Meds/Allgy - Home Medications Home Medications: Ambulatory Orders Medication Instructions Recorded Confirmed Levothyroxine Sodium [Tirosint] 125 mcg PO DAILY 01/29/13 08/23/21 Cyanocobalamin (Vitamin B-12) 2,500 mcg SL DAILY 02/28/13 08/23/21 [Vitamin B-12] Arformoterol Tartrate [Brovana] 15 mcg NEB DAILY 08/09/19 08/23/21 Budesonide 1 inh INH BID 08/09/19 08/23/21 Ipratropium/Albuterol [Duoneb] 3 ml INH DAILY 08/09/19 08/23/21 clonazePAM [Clonazepam] 0.5 - 1 mg PO DAILY PRN 08/09/19 08/23/21 Potassium Chloride [K-Dur] 20 meq PO DAILY 08/10/19 08/23/21 Albuterol Sulfate [Proair Hfa 1 puffs PO PRN PRN 02/15/21 08/23/21 Inhaler] Cholecalciferol (Vitamin D3) 50 mcg PO DAILY 02/15/21 08/23/21 [Vitamin D3] Sertraline [Zoloft] 50 mg PO DAILY 02/18/21 08/23/21 Digoxin [Lanoxin] 125 mcg PO DAILY #30 tablet 02/19/21 08/23/21 Furosemide [Lasix] 20 mg PO BIDDIURETIC #60 tablet 02/19/21 08/23/21 Metoprolol Tartrate [Lopressor] 50 mg PO BID #60 tablet 02/19/21 08/23/21 Rivaroxaban [Xarelto] 20 mg PO QDDINNER #30 tablet 02/21/21 08/23/21 - Allergies Allergies/Adverse Reactions: Allergies Allergy/AdvReac Type Severity Reaction Status Date / Time No Known Drug Allergies Allergy Verified 08/23/21 11:06 Review of Systems - Constitutional Constitutional: reports: Chills, Weakness. denies: Fever - Eyes Eyes: denies: Pain - Ears, Nose & Throat Ears, Nose & Throat: denies: Ear pain - Cardiovascular Cariovascular: reports: Irregular heart rate, Lightheadedness, Exertional dyspnea. denies: Chest pain, Edema, Syncope - Respiratory Respiratory: reports: SOB at rest, SOB with exertion. denies: Cough, Sputum production, Wheezing - Gastrointestinal Gastrointestinal: reports: Black stools, Reflux/heartburn. denies: Abdominal pain, Abdominal distention, Constipation, Diarrhea, Nausea, Vomiting, Bloating - Genitourinary Genitourinary: denies: Dysuria, Frequency, Urgency, Hematuria - Musculoskeletal Musculoskeletal: reports: Joint pain (elbows). denies: Muscle pain, Back pain - Integumentary Integumentary: denies: Rash, Pruritis, Lesions, Dryness - Neurological Neurological: denies: Focal weakness, Headache - Psychiatric Psychiatric: reports: Anxiety. denies: Depression - Endocrine Endocrine: denies: Polyuria, Polydypsia - Hematologic/Lymphatic Hematologic/Lymphatic: reports: Anemia. denies: Bruising, Petechiae Prior Level of Functionality: He is independent of activities of daily living. He gets around using a walker. He lives at home with his . Exam - Vital Signs Vital Signs: Vital Signs x48h Temp Pulse Resp BP Pulse Ox 08/23/21 12:19 124 H 20 105/75 96 08/23/21 11:06 36 C L 122 H 18 90/51 L 98 - Physical Exam General Appearance: positive: No acute distress, Alert Eyes Bilateral: positive: PERRL, EOMI ENT: positive: No signs of dehydration Neck: positive: No JVD, Trachea midline Respiratory: positive: Chest non-tender, No respiratory distress, Breath sounds nml. negative: Wheezes, Rales, Rhonchi Cardiovascular: positive: No murmur, Irregularly irregular, Tachycardia Abdomen: positive: Non-tender, Nml bowel sounds, No distention. negative: Gu arding, Rebound Rectal: positive: Black stool Back: positive: Nml inspection Skin: positive: Color nml, No rash, Warm, Dry Extremities: positive: Non-tender, Full ROM, Nml appearance, No pedal edema Neurologic/Psychiatric: positive: Oriented x3, Mood/affect nml Conclusion/Plan - Problem List (1) GI bleed Conclusion/Plan: Likely upper GI bleed. Patient had melena rectal exam in the ED. Hemoglobin was 7.9. Hemoglobin 6 months ago was 11.9. Will trend hemoglobin every 6 hours x3. We will transfuse if hemoglobin is less than 7. Protonix 40 mg IV twice daily ordered. Currently on clear liquid diet. Patient will be n.p.o. after midnight. General surgery consulted. Planned EGD in the morning of 08/24/2021. Qualifiers: GI bleed type/associated pathology: melena Qualified Code(s): K92.1 - Melena (2) Atrial fibrillation with RVR Conclusion/Plan: Heart rate is in the 120s. Patient was given 1 dose of diltiazem 5 mg IV in the ED. We will continue diltiazem 30 mg p.o. every 6 hours. We will hold if systolic is less than 90. We will continue patient's metoprolol tartrate 50 mg p.o. twice daily. Continue digoxin 125 mcg p.o. daily. Hold patient's Xarelto. (3) Anxiety Conclusion/Plan: Clonazepam 0.5 mg p.o. twice daily. (4) Hypothyroidism Conclusion/Plan: On Synthroid 125 mcg p.o. daily. Will continue. TSH was 14.71 with T4 level of 6.65 - Lab Results Fish Bones: 08/23/21 11:25 08/23/21 11:25 Core Measures - Anticipated LOS I expect patient to be DC'd or transferred within 96 hours.: Yes - DVT/VTE - Prophylaxis VTE/DVT Device ordered at admit?: Yes VTE/DVT Prophylaxis med ordered at admit?: No
--- NOTE | 2021-08-23 12:53 | PHARMACY PROGRESS NOTE ---
- Best Possible Medication History Admit Date and Time: 08/23/21 1211 Processed by: Nursing Medication History completed: Yes Patient Interview: Completed Secondary Source(s): Pharmacy records, Insurance records As the person ultimately responsible for medication therapy, providers are able to order a medication from an existing home medication list in [facility] via the "Reconcile Routine" prior to Confirmation of that medication by fire support man. Such practice is discouraged except when the physician, in their clinical judgment, deems that a medical need exists for a medication without regard to previous use.
[2021-08-23 13:43] LABS: B. PARAPERTUSSIS- RESP PCR PAN NOT DETECTED; B. PERTUSSIS- RESP PCR PANEL NOT DETECTED; C. PNEUMONIAE- RESP PCR PANEL NOT DETECTED; CORONAVIRUS 229E-RESP PCR NOT DETECTED; CORONAVIRUS HKU1-RESP PCR NOT DETECTED; CORONAVIRUS NL63-RESP PCR NOT DETECTED; CORONAVIRUS OC43-RESP PCR NOT DETECTED; HUMAN METAPNEUMOVIRUS NOT DETECTED; INFLUENZA A- RESP PCR PANEL NOT DETECTED; INFLUENZA B - RESP PCR PANEL NOT DETECTED; M. PNEUMONIAE- RESP PCR PANEL NOT DETECTED; PARAINFLUENZA VIRUS 1 NOT DETECTED; PARAINFLUENZA VIRUS 2 NOT DETECTED; PARAINFLUENZA VIRUS 3 NOT DETECTED; PARAINFLUENZA VIRUS 4 NOT DETECTED; RHINOVIRUS/ENTEROVIRUS NOT DETECTED; RSV- RESP PCR PANEL NOT DETECTED; SARS-CoV-2 -RESP PCR PANEL NOT DETECTED
--- NOTE | 2021-08-23 14:09 | CT Report ---
PROCEDURE: Abdomen/Pelvis W INDICATIONS: melena CONTRAST: IV CONTRAST: Isovue 300 ml: 100 PO CONTRAST: *NO PO CONTRAST TECHNIQUE: After the administration of intravenous contrast, 5 mm thick sections acquired from the diaphragms to the symphysis. 5 mm thick coronal and sagittal reformats were acquired. For radiation dose reducti on, the following was used: automated exposure control, adjustment of mA and/or kV according to nasir ent size. COMPARISON: None. FINDINGS: Image quality: Excellent. ABDOMEN: Lung bases: Mild basilar scars and atelectasis. Heart size is normal. Moderate coronary artery calc ification. A moderate-sized hiatal hernia. Solid organs: Liver and spleen are normal in size and enhancement. Gallbladder contains multiple ga llstones. Biliary system is non dilated. Pancreas enhances normally. No adrenal nodules. Kidneys demonstrate normal size and enhancement, without hydronephrosis. There is a 3 cm exophytic cyst in t he posterior cortex of the left kidney. Peritoneum and bowel: Bowel loops demonstrate normal wall thickness and caliber. Diverticulosis wit hout diverticulitis. No free fluid or air. Nodes and vessels: No retroperitoneal or mesenteric adenopathy by size criteria. Aorta and inferior vena cava are normal in size. Miscellaneous: No ventral hernias. PELVIS: Genitourinary: Bladder wall thickness is normal. Miscellaneous: No adenopathy. There is a moderate-sized, fat-containing left inguinal hernia. Bones: Moderately severe compression fracture of L4 with vertebroplasty. No suspicious bony lesions. IMPRESSION: 1. Diverticulosis without acute diverticulitis. 2. Cholelithiasis. 3. A 3 cm exophytic cyst in the inferior pole of the left kidney. 4. Moderate-sized hiatal hernia. 5. Moderate coronary artery calcifications. 6. Fat-containing left inguinal hernia. 7. Compression fracture of L4 with vertebroplasty. Reviewed by: Melida Gerard MD on 08/23/2021 2:07 PM PST Approved by: Melida Gerard MD on 08/23/2021 2:07 PM PST Station ID: [id number]
[2021-08-23] MEDS: SODIUM CHLORIDE 0.9% 1,000 ML IV SCH ×2 (16:05→23:45)
[2021-08-23] MEDS: SODIUM CHLORIDE FLUSH 0.9% 10 ML SYRINGE IVP SCH (16:05)
[2021-08-23] MEDS: diltiaZEM 30 MG TABLET PO SCH ×2 (17:10→19:05)
[2021-08-23] MEDS ORDERED: diltiaZEM 30 MG TABLET PO SCH (18:00)
[2021-08-23 18:07] LABS: BASOPHILS % (AUTO) 0.4 %; EOSINOPHILS # (AUTO) 0.2 10^3/uL (0.0-0.7); EOSINOPHILS % (AUTO) 1.6 %; LYMPHOCYTES # (AUTO) 1.7 10^3/uL (1.5-3.5); LYMPHOCYTES % (AUTO) 16.5 %; MEAN CORPUSCULAR HGB CONC 32.4 g/dL (32.0-36.0); MEAN CORPUSCULAR VOLUME 101.9 fL (80.0-94.0); MEAN PLATELET VOLUME 9.9 fL (7.4-11.4); MONOCYTES # (AUTO) 0.6 10^3/uL (0.0-1.0); MONOCYTES % (AUTO) 6.3 %; NEUTROPHILS # (AUTO) 7.5 10^3/uL (1.5-6.6); NEUTROPHILS % (AUTO) 74.6 %; PLT - PLATELET COUNT 194 10^3/uL (130-450); RED BLOOD COUNT 2.06 10^6/uL (4.70-6.10); RED CELL DISTRIBUTION WIDTH 14.6 % (12.0-15.0); WHITE BLOOD COUNT 10.1 x10^3/uL (4.8-10.8)
[2021-08-23 18:10] LABS: HGB - HEMOGLOBIN 6.8 g/dL (14.0-18.0)
[2021-08-23] MEDS ORDERED: IOPAMIDOL-300 100 ML VIAL IVP ONE (19:02)
[2021-08-23] MEDS: clonazePAM 0.5 MG TABLET PO PRN (19:04)
[2021-08-23] MEDS: FORMOTEROL FUMARATE NEB 20 MCG/2 ML INH SCH (19:25)
[2021-08-23] MEDS: IPRATROPIUM/ALBUTEROL 3 ML NEB INH PRN (19:25)
[2021-08-23] MEDS: BUDESONIDE 0.5 MG/2 ML NEB INH SCH (19:26)
[2021-08-23] MEDS ORDERED: SODIUM CHLORIDE 0.9% 500 ML IV ONE (20:34)
[2021-08-23] MEDS ORDERED: BUDESONIDE 0.5 MG/2 ML NEB INH SCH (21:00)
[2021-08-23] MEDS: METOPROLOL TARTRATE 50 MG TABLET PO SCH (21:44)
[2021-08-23] MEDS: PANTOPRAZOLE 40 MG VIAL IVP SCH (21:44)
[2021-08-23] MEDS: SODIUM CHLORIDE FLUSH 0.9% 10 ML SYRINGE IVP PRN (21:45)
[2021-08-24] MEDS ORDERED: LACTATED RINGERS 500 ML IV ONE (00:58)
[2021-08-24 01:14] LABS: BASOPHILS % (AUTO) 0.4 %; EOSINOPHILS # (AUTO) 0.2 10^3/uL (0.0-0.7); EOSINOPHILS % (AUTO) 1.4 %; HCT - HEMATOCRIT 21.9 % (42.0-52.0); HGB - HEMOGLOBIN 7.1 g/dL (14.0-18.0); LYMPHOCYTES # (AUTO) 1.9 10^3/uL (1.5-3.5); LYMPHOCYTES % (AUTO) 18.3 %; MEAN CORPUSCULAR HEMOGLOBIN 32.4 pg (27.0-31.0); MEAN CORPUSCULAR HGB CONC 32.4 g/dL (32.0-36.0); MEAN PLATELET VOLUME 9.9 fL (7.4-11.4); MONOCYTES # (AUTO) 0.8 10^3/uL (0.0-1.0); MONOCYTES % (AUTO) 7.9 %; NEUTROPHILS # (AUTO) 7.5 10^3/uL (1.5-6.6); NEUTROPHILS % (AUTO) 71.6 %; NRBC ABSOLUTE COUNT (AUTO) 0.02 x10^3/uL; NUCLEATED RED BLOOD CELLS AUTO 0.2 /100WBC; PLT - PLATELET COUNT 185 10^3/uL (130-450); RED BLOOD COUNT 2.19 10^6/uL (4.70-6.10); WHITE BLOOD COUNT 10.5 x10^3/uL (4.8-10.8)
[2021-08-24] MEDS: diltiaZEM 30 MG TABLET PO SCH ×4 (01:36→23:43)
[2021-08-24] MEDS: SODIUM CHLORIDE FLUSH 0.9% 10 ML SYRINGE IVP SCH ×3 (01:38→17:18)
[2021-08-24] MEDS: SODIUM CHLORIDE 0.9% 1,000 ML IV SCH ×3 (01:38→19:36)
[2021-08-24] MEDS ORDERED: SODIUM CHLORIDE 0.9% 500 ML IV ONE ×2 (01:39→11:08)
[2021-08-24 06:09] LABS: BASOPHILS % (AUTO) 0.3 %; EOSINOPHILS # (AUTO) 0.2 10^3/uL (0.0-0.7); EOSINOPHILS % (AUTO) 2.4 %; HCT - HEMATOCRIT 23.9 % (42.0-52.0); LYMPHOCYTES # (AUTO) 1.6 10^3/uL (1.5-3.5); LYMPHOCYTES % (AUTO) 16.9 %; MEAN CORPUSCULAR HEMOGLOBIN 32.5 pg (27.0-31.0); MEAN CORPUSCULAR HGB CONC 33.5 g/dL (32.0-36.0); MEAN CORPUSCULAR VOLUME 97.2 fL (80.0-94.0); MEAN PLATELET VOLUME 9.6 fL (7.4-11.4); MONOCYTES # (AUTO) 0.8 10^3/uL (0.0-1.0); MONOCYTES % (AUTO) 8.3 %; NEUTROPHILS # (AUTO) 6.8 10^3/uL (1.5-6.6); NEUTROPHILS % (AUTO) 71.5 %; PLT - PLATELET COUNT 173 10^3/uL (130-450); RED BLOOD COUNT 2.46 10^6/uL (4.70-6.10); RED CELL DISTRIBUTION WIDTH 15.9 % (12.0-15.0); WHITE BLOOD COUNT 9.5 x10^3/uL (4.8-10.8)
[2021-08-24 06:22] LABS: CALCIUM 7.9 mg/dL (8.5-10.3); CREATININE 0.6 mg/dL (0.6-1.2); POTASSIUM 3.2 mmol/L (3.5-5.0)
--- NOTE | 2021-08-24 07:46 | PROVIDER PROGRESS NOTE ---
Assessment/Plan - Problem List (1) GI bleed Qualifiers: GI bleed type/associated pathology: melena Qualified Code(s): K92.1 - Melena Assessment/Plan: Patient was transfused 2 units of packed red blood cells yesterday. Hemoglobin has remained stable at 8.0 with a hematocrit of 24.2 today. He underwent an EGD today which showed 2 ulcers but no active bleed. General surgery recommendation was to continue Protonix 40 mg p.o. twice daily. Patient will be restarted on his Xarelto after a total of 3 days without. He will restart Xarelto on 08/25/2020 1 PM. A soft diet was initiated. (2) Atrial fibrillation with RVR Assessment/Plan: Heart rate has mostly been in the 120's On digoxin 125 mcg p.o. daily. On metoprolol tartrate 50 mg p.o. twice daily. This was held this morning due to systolic blood pressure less than 100. Diltiazem 30 mg p.o. every 6 hours. (3) Anxiety Assessment/Plan: On clonazepam 0.5 mg p.o. twice daily as needed. (4) Hypothyroidism Assessment/Plan: On Synthroid 125 mcg p.o. daily. Will continue. TSH was 14.71 with T4 level of 6.65 - Current Meds Current Meds: Current Medications Generic Name Dose Route Start Last Admin Trade Name Freq PRN Reason Stop Dose Admin Albuterol/Ipratropium 3 ml 08/23/21 16:43 08/23/21 19:25 Ipratropium/Albuterol 3 Ml Neb INH 3 ml Q4HR PRN Administration Wheezing Budesonide 0.5 mg 08/23/21 19:00 08/23/21 19:26 Budesonide 0.5 Mg/2 Ml Neb INH 0.5 mg RTBID FABIANO Administration Clonazepam 0.5 mg 08/23/21 16:37 08/23/21 19:04 Clonazepam 0.5 Mg Tablet PO 0.5 mg BID PRN Administration Anxiety Diltiazem HCl 30 mg 08/23/21 16:33 08/24/21 01:36 Diltiazem 30 Mg Tablet PO Not Given Q6HR FABIANO Formoterol Fumarate 20 mcg 08/23/21 19:00 08/23/21 19:25 Formoterol Fumarate Neb 20 Mcg/2 Ml INH 20 mcg RTBID FABIANO Administration Sodium Chloride 1,000 mls @ 100 mls/hr 08/23/21 13:00 08/24/21 01:38 Normal Saline 0.9% IV 100 mls/hr .Q10H FABIANO Administration Metoprolol Tartrate 50 mg 08/23/21 21:00 08/23/21 21:44 Metoprolol Tartrate 50 Mg Tablet PO Not Given BID FABIANO Pantoprazole Sodium 40 mg 08/23/21 21:00 08/23/21 21:44 Pantoprazole 40 Mg Vial IVP 40 mg BID FABIANO Administration Sodium Chloride 10 ml 08/23/21 12:11 08/23/21 21:45 Sodium Chloride Flush 0.9% 10 Ml Syringe IVP 40 ml PRN PRN Administration NEEDED PER PROVIDER ORDERS Sodium Chloride 10 ml 08/23/21 17:00 08/24/21 01:38 Sodium Chloride Flush 0.9% 10 Ml Syringe IVP 20 ml 0100,0900,1700 FABIANO Administration - Lab Result Fish Bone Diagrams: 08/24/21 17:21 08/24/21 06:00 - Additional Planning My Orders: My Active Orders 08/23/21 12:11 Activity Orders [RC] Q2HR IO [RC] IOSHIFT Initiate Bowel Care Protocol [RC] .protocol Initiate Line Care Protocol [RC] QSHIFT Initiate Personal Care Protoco [RC] .protocol Telemetry- [RC] Q4HR Vital Signs [RC] 0800,1600,0000 Ondansetron Inj [Zofran Inj] 4 mg IVP Q6HR PRN Sodium Chloride Flush 0.9% [Normal Saline Flush 0.9%] 10 ml IVP PRN PRN Code Status [OTHERS] Routine Condition of Patient [OTHERS] Routine DVT Prophylaxis [OTHERS] Routine 08/23/21 12:16 SCDs [RC] QSHIFT 08/23/21 12:17 General Surgery Consult [CONS] Routine 08/23/21 13:00 Sodium Chloride 0.9% [Normal Saline 0.9%] 1,000 ml IV 100 mls/hr 08/23/21 16:32 Nebulizer/MDI Tx. [RC] .BID 08/23/21 16:33 diltiaZEM [Cardizem] 30 mg PO Q6HR 08/23/21 16:37 clonazePAM [KlonoPIN] 0.5 mg PO BID PRN 08/23/21 16:43 Ipratropium/Albuterol [Duoneb] 3 ml INH Q4HR PRN 08/23/21 16:44 Resp Teach Nebulizer/MDI [RC] .ONCE 08/23/21 17:00 Sodium Chloride Flush 0.9% [Normal Saline Flush 0.9%] 10 ml IVP 0100,0900,1700 08/23/21 18:13 Transfuse RBCs Leukoreduced [RC] .ONCE 08/23/21 19:00 Budesonide [Pulmicort] 0.5 mg INH RTBID Formoterol Fumarate [Perforomist] 20 mcg INH RTBID 08/23/21 21:00 Metoprolol Tartrate [Lopressor] 50 mg PO BID Pantoprazole [Protonix] 40 mg IVP BID 08/24/21 00:01 NPO except Meds at Midnight [DIET] 08/24/21 07:00 Levothyroxine [Synthroid] 125 mcg PO QDAC 08/24/21 07:44 MAGNESIUM [CHEM] Stat 08/24/21 08:00 Potassium Chloride/Water 10 mEq/100 mL q1h (Enter # of bags) Potassium Chlor 10 Meq/100 ml [Potassium Chloride] 10 meq in 100 ml IV Q1H 08/24/21 09:00 Digoxin [Lanoxin] 125 mcg PO DAILY Potassium Chloride [K-Dur] 20 meq PO DAILY Sertraline [Zoloft] 50 mg PO DAILY 08/25/21 05:00 BMP - BASIC METABOLIC PANEL [CHEM] DAILYLAB CBC - COMP BLD CT W/AUTO DIFF [HEME] DAILYLAB 08/26/21 05:00 BMP - BASIC METABOLIC PANEL [CHEM] DAILYLAB CBC - COMP BLD CT W/AUTO DIFF [HEME] DAILYLAB 08/27/21 05:00 BMP - BASIC METABOLIC PANEL [CHEM] DAILYLAB CBC - COMP BLD CT W/AUTO DIFF [HEME] DAILYLAB 08/28/21 05:00 BMP - BASIC METABOLIC PANEL [CHEM] DAILYLAB CBC - COMP BLD CT W/AUTO DIFF [HEME] DAILYLAB Subjective - Subjective Patient Reports: Other (Patient was resting comfortably in bed at time of exam. He denied any complaints. He is blood pressure has been slightly low with systolics ranging between 90 and 100. He also remains tachycardic with heart rate in the 120s. He has not had any episodes of melena since yesterday.) Objective Vital Signs: Vital Signs - 24 hr 08/23/21 08/23/21 08/23/21 11:06 12:19 12:32 Temperature 36 C L Heart Rate 122 H 124 H 124 H Heart Rate [ Brachial] Respiratory 18 20 23 Rate Blood Pressure 90/51 L 105/75 92/69 Blood Pressure [Right Brachial artery] O2 Saturation 98 96 96 08/23/21 08/23/21 08/23/21 13:50 14:27 16:00 Temperature 36.8 C 36.4 C L 36.4 C L Heart Rate 123 H Heart Rate [ 124 H 126 H Brachial] Respiratory 24 21 20 Rate Blood Pressure Blood Pressure 103/68 94/63 [Right Brachial artery] O2 Saturation 98 100 97 08/23/21 08/23/21 08/23/21 17:10 18:14 19:06 Temperature Heart Rate 123 H Heart Rate [ 126 H Brachial] Respiratory 20 Rate Blood Pressure 90/61 Blood Pressure 101/59 L [Right Brachial artery] O2 Saturation 96 100 08/23/21 08/23/21 08/23/21 19:26 20:05 21:04 Temperature 36.5 C 36.5 C Heart Rate 122 H 127 H Heart Rate [ 127 H Brachial] Respiratory 16 16 16 Rate Blood Pressure 87/53 L Blood Pressure 87/53 L [Right Brachial artery] O2 Saturation 99 08/23/21 08/23/21 08/23/21 21:19 21:44 21:46 Temperature 36.6 C Heart Rate 128 H Heart Rate [ 129 H Brachial] Respiratory 24 Rate Blood Pressure 83/59 L 84/63 L Blood Pressure 93/63 [Right Brachial artery] O2 Saturation 08/23/21 08/23/21 08/24/21 22:03 23:36 00:50 Temperature 36.5 C 36.6 C Heart Rate 126 H Heart Rate [ 126 H 126 H Brachial] Respiratory 20 18 Rate Blood Pressure 99/61 Blood Pressure 99/61 81/61 L [Right Brachial artery] O2 Saturation 100 97 98 08/24/21 08/24/21 08/24/21 01:36 01:50 02:05 Temperature 36.6 C 36.6 C Heart Rate 126 H 122 H Heart Rate [ Brachial] Respiratory 18 16 Rate Blood Pressure 81/61 L 81/61 L 92/61 Blood Pressure [Right Brachial artery] O2 Saturation 08/24/21 08/24/21 08/24/21 03:51 04:36 06:06 Temperature 36.5 C 36.6 C Heart Rate 125 H Heart Rate [ 124 H 124 H Brachial] Respiratory 16 16 Rate Blood Pressure 99/65 Blood Pressure 101/66 [Right Brachial artery] O2 Saturation 98 Oxygen O2 Source Nasal cannula I&O (Last 24 Hrs): Intake and Output Totals x24h 08/22/21 08/23/21 08/24/21 23:59 23:59 23:59 Intake Total 2291.667 1190 Output Total 625 200 Balance 1666.667 990 General: Alert, Oriented x3, No acute distress HEENT: PERRLA, EOMI Neck: Supple, No JVD Neuro: Alert, Non Focal, Oriented Times 3 Cardiovascular: Other (Irregularly irregular. Tachycardic.) Respiratory: Chest non-tender, No respiratory distress, Breath sounds nml Abdomen: Normal bowel sounds, Soft, No tenderness, No masses Extremities: No clubbing, No cyanosis, No edema, No tenderness/swelling Skin: No rashes, No breakdown, No significant lesion - Results Results: Laboratory Results WBC 9.5 x10^3/uL (4.8-10.8) 08/24/21 06:00 RBC 2.46 10^6/uL (4.70-6.10) L 08/24/21 06:00 Hgb 8.0 g/dL (14.0-18.0) L 08/24/21 06:00 Hct 23.9 % (42.0-52.0) L 08/24/21 06:00 MCV 97.2 fL (80.0-94.0) H 08/24/21 06:00 MCH 32.5 pg (27.0-31.0) H 08/24/21 06:00 MCHC 33.5 g/dL (32.0-36.0) 08/24/21 06:00 RDW 15.9 % (12.0-15.0) H 08/24/21 06:00 Plt Count 173 10^3/uL (130-450) 08/24/21 06:00 MPV 9.6 fL (7.4-11.4) 08/24/21 06:00 Neut # (Auto) 6.8 10^3/uL (1.5-6.6) H 08/24/21 06:00 Lymph # (Auto) 1.6 10^3/uL (1.5-3.5) 08/24/21 06:00 [place] # (Auto) 0.8 10^3/uL (0.0-1.0) 08/24/21 06:00 Eos # (Auto) 0.2 10^3/uL (0.0-0.7) 08/24/21 06:00 Baso # (Auto) 0.0 10^3/uL (0.0-0.1) 08/24/21 06:00 Absolute Nucleated RBC 0.00 x10^3/uL 08/24/21 06:00 Nucleated RBC % 0.0 /100WBC 08/24/21 06:00 PT 21.5 secs (9.9-12.6) H 08/23/21 11:37 INR 1.9 (0.8-1.2) H 08/23/21 11:37 APTT 31.5 secs (24.9-33.3) 08/23/21 11:37 Sodium 134 mmol/L (135-145) L 08/24/21 06:00 Potassium 3.2 mmol/L (3.5-5.0) L 08/24/21 06:00 Chloride 103 mmol/L (101-111) 08/24/21 06:00 Carbon Dioxide 23 mmol/L (21-32) 08/24/21 06:00 Anion Gap 8.0 (6-13) 08/24/21 06:00 BUN 24 mg/dL (6-20) H 08/24/21 06:00 Creatinine 0.6 mg/dL (0.6-1.2) 08/24/21 06:00 Estimated GFR (MDRD) 128 (>89) 08/24/21 06:00 Glucose 100 mg/dL (70-100) 08/24/21 06:00 Calcium 7.9 mg/dL (8.5-10.3) L 08/24/21 06:00 Total Bilirubin 0.8 mg/dL (0.2-1.0) 08/23/21 11:25 AST 37 IU/L (10-42) 08/23/21 11:25 ALT 37 IU/L (10-60) 08/23/21 11:25 Alkaline Phosphatase 63 IU/L (42-121) 08/23/21 11:25 Troponin I High Sens 80.5 ng/L (2.3-19.7) H* 08/23/21 17:56 B-Natriuretic Peptide 504 pg/mL (5-100) H 08/23/21 11:25 Total Protein 6.0 g/dL (6.7-8.2) L 08/23/21 11:25 Albumin 3.4 g/dL (3.2-5.5) 08/23/21 11:25 Globulin 2.6 g/dL (2.1-4.2) 08/23/21 11:25 Albumin/Globulin Ratio 1.3 (1.0-2.2) 08/23/21 11:25 Lipase 31 U/L (22-51) 08/23/21 11:25 TSH 14.71 uIU/mL (0.34-5.60) H 08/23/21 11:25 Thyroxine (T4) 6.65 ug/dL (6.09-12.23) 08/23/21 11:25 Nasal Adenovirus (PCR) NOT DETECTED 08/23/21 12:30 Nasal B. parapertussis DNA (PCR) NOT DETECTED 08/23/21 12:30 Nasal Coronavir 229E PCR NOT DETECTED 08/23/21 12:30 Nasal Coronavir HKU1 PCR NOT DETECTED 08/23/21 12:30 Nasal Coronavir NL63 PCR NOT DETECTED 08/23/21 12:30 Nasal Coronavir OC43 PCR NOT DETECTED 08/23/21 12:30 Nasal Enterovir/Rhinovir PCR NOT DETECTED 08/23/21 12:30 Nasal Influenza B PCR NOT DETECTED 08/23/21 12:30 Nasal Influenza A PCR NOT DETECTED 08/23/21 12:30 Nasal Parainfluen 1 PCR NOT DETECTED 08/23/21 12:30 Nasal Parainfluen 2 PCR NOT DETECTED 08/23/21 12:30 Nasal Parainfluen 3 PCR NOT DETECTED 08/23/21 12:30 Nasal Parainfluen 4 PCR NOT DETECTED 08/23/21 12:30 Nasal RSV (PCR) NOT DETECTED 08/23/21 12:30 Nasal B.pertussis DNA PCR NOT DETECTED 08/23/21 12:30 Nasal C.pneumoniae (PCR) NOT DETECTED 08/23/21 12:30 [place] Human Metapneumo PCR NOT DETECTED 08/23/21 12:30 Nasal M.pneumoniae (PCR) NOT DETECTED 08/23/21 12:30 Nasal SARS-CoV-2 (PCR) NOT DETECTED 08/23/21 12:30 Last Dose Date UNK 08/23/21 11:25 Last Dose Time UNK 08/23/21 11:25 Digoxin 0.4 ng/mL 08/23/21 11:25 Blood Type B POSITIVE 08/23/21 11:25 Blood Type Recheck B POSITIVE 08/23/21 17:56 Antibody Screen NEGATIVE 08/23/21 11:25 Crossmatch IS Only See Detail 08/23/21 11:25 ABX Reporting Has patient been on IV antibiotics over the past 48 hours?: No
[2021-08-24] MEDS: POTASSIUM CHLOR 10 MEQ/100 ML 10 MEQ/100 ML BAG IV SCH ×4 (08:35→11:50)
[2021-08-24] MEDS: SERTRALINE 50 MG TABLET PO SCH (08:35)
[2021-08-24] MEDS: LEVOTHYROXINE 125 MCG TABLET PO SCH (08:35)
[2021-08-24] MEDS: PANTOPRAZOLE 40 MG VIAL IVP SCH (08:36)
[2021-08-24] MEDS: IPRATROPIUM/ALBUTEROL 3 ML NEB INH PRN ×3 (09:18→23:06)
[2021-08-24] MEDS: BUDESONIDE 0.5 MG/2 ML NEB INH SCH ×2 (09:19→18:02)
[2021-08-24] MEDS: FORMOTEROL FUMARATE NEB 20 MCG/2 ML INH SCH ×2 (09:19→18:02)
[2021-08-24] MEDS: POTASSIUM CHLORIDE 20 MEQ TABLET PO SCH (11:49)
[2021-08-24] MEDS: DIGOXIN 125 MCG TABLET PO SCH (11:49)
--- NOTE | 2021-08-24 13:08 | ANESTHESIA ---
Pre-Anesthesia VS, & Labs - Diagnosis Anemia, GI Bleed - Procedure EGD Vital Signs: Temp Pulse Resp BP Pulse Ox 36.6 C 122 H 22 97/67 97 08/24/21 08:05 08/24/21 11:57 08/24/21 09:27 08/24/21 11:57 08/24/21 08:44 Height: 6 ft 2 in Weight (kg): 106.594 kg Body Mass Index: 30.2 BMI Classification: Obese - NPO >8 hours - Lab Results Current Lab Results: Laboratory Tests 08/24/21 06:00: Magnesium 1.9 08/24/21 06:00: Sodium 134 L, Potassium 3.2 L, Chloride 103, Carbon Dioxide 23, Anion Gap 8.0, BUN 24 H, Creatinine 0.6, Estimated GFR (MDRD) 128, Glucose 100, Calcium 7.9 L 08/24/21 06:00: WBC 9.5, RBC 2.46 L, Hgb 8.0 L, Hct 23.9 L, MCV 97.2 H, MCH 32.5 H, MCHC 33.5, RDW 15.9 H, Plt Count 173, MPV 9.6, Neut # (Auto) 6.8 H, Lymph # (Auto) 1.6, [place] # (Auto) 0.8, Eos # (Auto) 0.2, Baso # (Auto) 0.0, Absolute Nucleated RBC 0.00, Nucleated RBC % 0.0 08/23/21 17:56: Blood Type Recheck B POSITIVE 08/23/21 17:56: WBC 10.1, RBC 2.06 L, Hgb 6.8 L*, Hct 21.0 L, MCV 101.9 H, MCH 33.0 H, MCHC 32.4, RDW 14.6, Plt Count 194, MPV 9.9, Neut # (Auto) 7.5 H, Lymph # (Auto) 1.7, [place] # (Auto) 0.6, Eos # (Auto) 0.2, Baso # (Auto) 0.0, Absolute Nucleated RBC 0.00, Nucleated RBC % 0.0 08/23/21 17:56: Troponin I High Sens 80.5 H* 08/23/21 13:50: Troponin I High Sens 81.2 H* 08/23/21 11:37: PT 21.5 H, INR 1.9 H, APTT 31.5 08/23/21 11:25: Blood Type B POSITIVE, Antibody Screen NEGATIVE, Crossmatch IS Only See Detail 08/23/21 11:25: Thyroxine (T4) 6.65 08/23/21 11:25: Last Dose Date UNK, Last Dose Time UNK, Digoxin 0.4 08/23/21 11:25: TSH 14.71 H 08/23/21 11:25: B-Natriuretic Peptide 504 H 08/23/21 11:25: Troponin I High Sens 84.3 H* 08/23/21 11:25: Sodium 135, Potassium 3.7, Chloride 101, Carbon Dioxide 24, Anion Gap 10.0, BUN 44 H, Creatinine 0.7, Estimated GFR (MDRD) 107, Glucose 112 H, Calcium 8.8, Total Bilirubin 0.8, AST 37, ALT 37, Alkaline Phosphatase 63, Total Protein 6.0 L, Albumin 3.4, Globulin 2.6, Albumin/Globulin Ratio 1.3, Lipase 31 08/23/21 11:25: WBC 11.8 H, RBC 2.36 L, Hgb 7.9 L, Hct 24.1 L, MCV 102.1 H, MCH 33.5 H, MCHC 32.8, RDW 14.4, Plt Count 223, MPV 9.9, Neut # (Auto) 8.9 H, Lymph # (Auto) 1.7, [place] # (Auto) 0.9, Eos # (Auto) 0.2, Baso # (Auto) 0.0, Absolute Nucleated RBC 0.00, Nucleated RBC % 0.0 08/23/21 01:00: WBC 10.5, RBC 2.19 L, Hgb 7.1 L, Hct 21.9 L, MCV 100.0 H, MCH 32.4 H, MCHC 32.4, RDW 15.0, Plt Count 185, MPV 9.9, Neut # (Auto) 7.5 H, Lymph # (Auto) 1.9, [place] # (Auto) 0.8, Eos # (Auto) 0.2, Baso # (Auto) 0.0, Absolute Nucleated RBC 0.02, Nucleated RBC % 0.2 Fish Bones: 08/24/21 06:00 08/24/21 06:00 Home Medications and Allergies Active Medications Albuterol/Ipratropium (Ipratropium/Albuterol 3 Ml Neb) 3 ml INH Q4HR PRN PRN Reason: Wheezing Last Admin: 08/24/21 09:18 Dose: 3 ml Documented by: Budesonide (Budesonide 0.5 Mg/2 Ml Neb) 0.5 mg INH RTBID [facility] Last Admin: 08/24/21 09:19 Dose: 0.5 mg Documented by: Clonazepam (Clonazepam 0.5 Mg Tablet) 0.5 mg PO BID PRN PRN Reason: Anxiety Last Admin: 08/23/21 19:04 Dose: 0.5 mg Documented by: Digoxin (Digoxin 125 Mcg Tablet) 125 mcg PO DAILY [facility] Last Admin: 08/24/21 11:49 Dose: 125 mcg Documented by: Diltiazem HCl (Diltiazem 30 Mg Tablet) 30 mg PO Q6HR [facility] Last Admin: 08/24/21 08:45 Dose: 30 mg Documented by: Formoterol Fumarate (Formoterol Fumarate Neb 20 Mcg/2 Ml) 20 mcg INH RTBID [facility] Last Admin: 08/24/21 09:19 Dose: 20 mcg Documented by: Sodium Chloride (Normal Saline 0.9%) 1,000 mls @ 150 mls/hr IV .Q6H40M [facility] Last Admin: 08/24/21 11:56 Dose: 150 mls/hr Documented by: Levothyroxine Sodium (Levothyroxine 125 Mcg Tablet) 125 mcg PO QDAC [facility] Last Admin: 08/24/21 08:35 Dose: 125 mcg Documented by: Metoprolol Tartrate (Metoprolol Tartrate 50 Mg Tablet) 50 mg PO BID [facility] Last Admin: 08/23/21 21:44 Dose: Not Given Documented by: Ondansetron HCl (Ondansetron 4 Mg/2 Ml Vial) 4 mg IVP Q6HR PRN PRN Reason: Nausea / Vomiting Pantoprazole Sodium (Pantoprazole 40 Mg Vial) 40 mg IVP BID [facility] Last Admin: 08/24/21 08:36 Dose: 40 mg Documented by: Potassium Chloride (Potassium Chloride 20 Meq Tablet) 20 meq PO DAILY [facility] Last Admin: 08/24/21 11:49 Dose: 20 meq Documented by: Sertraline HCl (Sertraline 50 Mg Tablet) 50 mg PO DAILY [facility] Last Admin: 08/24/21 08:35 Dose: 50 mg Documented by: Sodium Chloride (Sodium Chloride Flush 0.9% 10 Ml Syringe) 10 ml IVP PRN PRN PRN Reason: NEEDED PER PROVIDER ORDERS Last Admin: 08/23/21 21:45 Dose: 40 ml Documented by: Sodium Chloride (Sodium Chloride Flush 0.9% 10 Ml Syringe) 10 ml IVP 0100,0900,1700 [facility] Last Admin: 08/24/21 08:36 Dose: 10 ml Documented by: Levothyroxine Sodium [Tirosint] 125 mcg PO DAILY 01/29/13 Cyanocobalamin (Vitamin B-12) [Vitamin B-12] 2,500 mcg SL DAILY 02/28/13 Arformoterol Tartrate [Brovana] 15 mcg NEB DAILY 08/09/19 Budesonide 1 inh INH BID 08/09/19 Ipratropium/Albuterol [Duoneb] 3 ml INH DAILY 08/09/19 clonazePAM [Clonazepam] 0.5 - 1 mg PO DAILY PRN 08/09/19 Potassium Chloride [K-Dur] 20 meq PO DAILY 08/10/19 Albuterol Sulfate [Proair Hfa Inhaler] 1 puffs PO PRN PRN 02/15/21 Cholecalciferol (Vitamin D3) [Vitamin D3] 50 mcg PO DAILY 02/15/21 Sertraline [Zoloft] 50 mg PO DAILY 02/18/21 Allergies/Adverse Reactions: Allergies Allergy/AdvReac Type Severity Reaction Status Date / Time No Known Drug Allergies Allergy Verified 08/23/21 11:06 Anes History & Medical History - Anesthetic History Anesthesia Complications: reports: No previous complications - Medical History Cardiovascular: reports: Atrial fibrillation Pulmonary: reports: COPD, Emphysema Gastrointestinal: reports: None Urinary: reports: Nocturia, Frequency Neuro: reports: Peripheral neuropathy Musculoskeletal: reports: Osteoarthritis Endocrine/Autoimmune: reports: HyPOthyroidism Blood Disorders: reports: None Skin: reports: Other Smoking Status: Former smoker Psychosocial: reports: No issues indicated History of Cancer?: No - Surgical History General: reports: Colonoscopy Eyes Ears Nose Throat (EENT): reports: Cataracts Orthopedic: reports: Arthroscopic surgery Exam General: Alert, Oriented x3, Cooperative, No acute distress Dental: WNL (Upper bridge) Mouth Openin Fingerbreadth Neck Mobility: Reduced Mallampati classification: III Thyromental Distance: 4-6 cm Mental/Cognitive Status: Alert/Oriented X3, Normal for patient ([place]) Plan Anesthesia Type: Total IV Consent for Procedure(s) Verified and Reviewed: Yes Code Status: Attempt Resuscitation ASA classification: 3-Severe systemic disease Is this case an emergency?: No
[2021-08-24] MEDS ORDERED: SODIUM CHLORIDE 0.9% 1,000 ML IV ONE (14:08)
--- NOTE | 2021-08-24 14:13 | HISTORY & PHYSICAL EXAMINATION ---
HPI - Admitted From Admitted from: ED - History Obtained From History obtained from: Patient, Other (Other providers) Exam limitations: Other (Patient is very lethargic) - History of Present Illness Pain/Problem Location Description: Denies any pain HPI Comment/Other: Very pleasant 86-year-old gentleman who presented to the emergency room yesterday complaining of shortness of breath, anxiety, and bright red blood per rectum. He says he has had this before in the past. Yesterday scared him more when he became short of breath. He tells me that several years ago he had an upper scope and he was found to have an ulcer. He is not had any pain at home. He denies any vomiting. PMH/PSH - Past Medical History Cardiovascular: positive: Atrial fibrillation Respiratory: positive: COPD, Emphysema Neuro: positive: Peripheral neuropathy Endocrine/Autoimmune: positive: HyPOthyroidism GI: positive: None : positive: Nocturia, Frequency Psych: positive: Anxiety Musculoskeletal: positive: Osteoarthritis Derm: positive: Other MRSA Hx?: No - Past Surgical History General: positive: Colonoscopy Ortho: positive: Arthroscopic surgery HEENT: positive: Cataracts Social & Family Hx - Social History Does the pt smoke?: No Smoking Status: Former smoker Does the pt drink ETOH?: Yes Does the pt have substance abuse?: No - POLST Patient has POLST: No POLST Status: Full Code (pt report he request CPR but no incubation) Meds/Allgy - Home Medications Home Medications: Ambulatory Orders Medication Instructions Recorded Confirmed Levothyroxine Sodium [Tirosint] 125 mcg PO DAILY 01/29/13 08/23/21 Cyanocobalamin (Vitamin B-12) 2,500 mcg SL DAILY 02/28/13 08/23/21 [Vitamin B-12] Arformoterol Tartrate [Brovana] 15 mcg NEB DAILY 08/09/19 08/23/21 Budesonide 1 inh INH BID 08/09/19 08/23/21 Ipratropium/Albuterol [Duoneb] 3 ml INH DAILY 08/09/19 08/23/21 clonazePAM [Clonazepam] 0.5 - 1 mg PO DAILY PRN 08/09/19 08/23/21 Potassium Chloride [K-Dur] 20 meq PO DAILY 08/10/19 08/23/21 Albuterol Sulfate [Proair Hfa 1 puffs PO PRN PRN 02/15/21 08/23/21 Inhaler] Cholecalciferol (Vitamin D3) 50 mcg PO DAILY 02/15/21 08/23/21 [Vitamin D3] Sertraline [Zoloft] 50 mg PO DAILY 02/18/21 08/23/21 Digoxin [Lanoxin] 125 mcg PO DAILY #30 tablet 02/19/21 08/23/21 Furosemide [Lasix] 20 mg PO BIDDIURETIC #60 tablet 02/19/21 08/23/21 Metoprolol Tartrate [Lopressor] 50 mg PO BID #60 tablet 02/19/21 08/23/21 Rivaroxaban [Xarelto] 20 mg PO QDDINNER #30 tablet 02/21/21 08/23/21 - Allergies Allergies/Adverse Reactions: Allergies Allergy/AdvReac Type Severity Reaction Status Date / Time No Known Drug Allergies Allergy Verified 08/23/21 11:06 Review of Systems - Constitutional Constitutional: reports: Fatigue, Weakness - Gastrointestinal Gastrointestinal: reports: Diarrhea, Bloody stools. denies: Constipation, Nausea, Vomiting, Bile emesis - Neurological Neurological: reports: General weakness - All Other Systems All Other Systems: reports: Reviewed and negative Exam - Vital Signs Vital Signs: Vital Signs x48h Temp Pulse Pulse Resp BP BP Pulse Ox 08/24/21 13:31 36.4 C L 123 H 18 106/74 100 08/24/21 11:57 122 H 97/67 08/24/21 09:44 124 H 99/65 08/24/21 09:27 120 H 22 08/24/21 09:20 123 H 22 08/24/21 08:45 110/70 08/24/21 08:44 126 H 18 110/70 97 08/24/21 08:05 36.6 C 124 H 18 92/62 99 - Physical Exam General Appearance: positive: No acute distress, Lethargic Eyes Bilateral: positive: Normal inspection Abdomen: positive: Non-tender, Nml bowel sounds, No distention. negative: Guarding, Rebound Skin: positive: Color nml Results - Lab Results Fish Bones: 08/24/21 06:00 08/24/21 06:00 Other Lab Results: Lab Results x24hrs 08/24/21 08/24/21 08/24/21 Range/Units 06:00 06:00 06:00 WBC 9.5 (4.8-10.8) x10^3/uL RBC 2.46 L (4.70-6.10) 10^6/uL Hgb 8.0 L (14.0-18.0) g/dL Hct 23.9 L (42.0-52.0) % MCV 97.2 H (80.0-94.0) fL MCH 32.5 H (27.0-31.0) pg MCHC 33.5 (32.0-36.0) g/dL RDW 15.9 H (12.0-15.0) % Plt Count 173 (130-450) 10^3/uL MPV 9.6 (7.4-11.4) fL Neut # (Auto) 6.8 H (1.5-6.6) 10^3/uL Lymph # (Auto) 1.6 (1.5-3.5) 10^3/uL [place] # (Auto) 0.8 (0.0-1.0) 10^3/uL Eos # (Auto) 0.2 (0.0-0.7) 10^3/uL Baso # (Auto) 0.0 (0.0-0.1) 10^3/uL Absolute Nucleated RBC 0.00 x10^3/uL Nucleated RBC % 0.0 /100WBC Sodium 134 L (135-145) mmol/L Potassium 3.2 L (3.5-5.0) mmol/L Chloride 103 (101-111) mmol/L Carbon Dioxide 23 (21-32) mmol/L Anion Gap 8.0 (6-13) BUN 24 H (6-20) mg/dL Creatinine 0.6 (0.6-1.2) mg/dL Estimated GFR (MDRD) 128 (>89) Glucose 100 (70-100) mg/dL Calcium 7.9 L (8.5-10.3) mg/dL Magnesium 1.9 (1.7-2.8) mg/dL Troponin I High Sens (2.3-19.7) ng/L Blood Type Blood Type Recheck Antibody Screen Crossmatch IS Only 08/23/21 08/23/21 08/23/21 Range/Units 17:56 17:56 17:56 WBC 10.1 (4.8-10.8) x10^3/uL RBC 2.06 L (4.70-6.10) 10^6/uL Hgb 6.8 L* (14.0-18.0) g/dL Hct 21.0 L (42.0-52.0) % MCV 101.9 H (80.0-94.0) fL MCH 33.0 H (27.0-31.0) pg MCHC 32.4 (32.0-36.0) g/dL RDW 14.6 (12.0-15.0) % Plt Count 194 (130-450) 10^3/uL MPV 9.9 (7.4-11.4) fL Neut # (Auto) 7.5 H (1.5-6.6) 10^3/uL Lymph # (Auto) 1.7 (1.5-3.5) 10^3/uL [place] # (Auto) 0.6 (0.0-1.0) 10^3/uL Eos # (Auto) 0.2 (0.0-0.7) 10^3/uL Baso # (Auto) 0.0 (0.0-0.1) 10^3/uL Absolute Nucleated RBC 0.00 x10^3/uL Nucleated RBC % 0.0 /100WBC Sodium (135-145) mmol/L Potassium (3.5-5.0) mmol/L Chloride (101-111) mmol/L Carbon Dioxide (21-32) mmol/L Anion Gap (6-13) BUN (6-20) mg/dL Creatinine (0.6-1.2) mg/dL Estimated GFR (MDRD) (>89) Glucose (70-100) mg/dL Calcium (8.5-10.3) mg/dL Magnesium (1.7-2.8) mg/dL Troponin I High Sens 80.5 H* (2.3-19.7) ng/L Blood Type Blood Type Recheck B POSITIVE Antibody Screen Crossmatch IS Only 08/23/21 08/23/21 08/23/21 Range/Units 13:50 11:25 01:00 WBC 10.5 (4.8-10.8) x10^3/uL RBC 2.19 L (4.70-6.10) 10^6/uL Hgb 7.1 L (14.0-18.0) g/dL Hct 21.9 L (42.0-52.0) % MCV 100.0 H (80.0-94.0) fL MCH 32.4 H (27.0-31.0) pg MCHC 32.4 (32.0-36.0) g/dL RDW 15.0 (12.0-15.0) % Plt Count 185 (130-450) 10^3/uL MPV 9.9 (7.4-11.4) fL Neut # (Auto) 7.5 H (1.5-6.6) 10^3/uL Lymph # (Auto) 1.9 (1.5-3.5) 10^3/uL [place] # (Auto) 0.8 (0.0-1.0) 10^3/uL Eos # (Auto) 0.2 (0.0-0.7) 10^3/uL Baso # (Auto) 0.0 (0.0-0.1) 10^3/uL Absolute Nucleated RBC 0.02 x10^3/uL Nucleated RBC % 0.2 /100WBC Sodium (135-145) mmol/L Potassium (3.5-5.0) mmol/L Chloride (101-111) mmol/L Carbon Dioxide (21-32) mmol/L Anion Gap (6-13) BUN (6-20) mg/dL Creatinine (0.6-1.2) mg/dL Estimated GFR (MDRD) (>89) Glucose (70-100) mg/dL Calcium (8.5-10.3) mg/dL Magnesium (1.7-2.8) mg/dL Troponin I High Sens 81.2 H* (2.3-19.7) ng/L Blood Type B POSITIVE Blood Type Recheck Antibody Screen NEGATIVE Crossmatch IS Only See Detail - Diagnostic Imaging Results Diagnostic Imaging Results Comments: CT scan shows no definite cause of bleeding. He does have mild diverticulosis without evidence of diverticulitis and a small hiatal hernia is appreciated. There are some other findings including is a renal cyst but nothing to explain GI hemorrhage. Impression/Plan - Problem List Problem List: Acute blood loss anemia secondary to GI hemorrhage. I have recommended esophagogastroduodenoscopy. He is on Xarelto and took his last dose yesterday. We have discussed the risk benefits and alternatives of the procedure and the patient is expressed a desire to complete it today. Both written and verbal consent were obtained.
[2021-08-24] MEDS: METOPROLOL TARTRATE 50 MG TABLET PO SCH ×2 (14:15→20:40)
[2021-08-24] MEDS ORDERED: fentaNYL 100 MCG/2 ML VIAL ONE (14:50)
[2021-08-24] MEDS ORDERED: PROPOFOL 200 MG/20 ML VIAL IVP ONE (14:50)
[2021-08-24] MEDS ORDERED: diltiaZEM 30 MG TABLET PO SCH (16:00)
[2021-08-24] MEDS ORDERED: METOPROLOL 5 MG/5 ML VIAL IVP STA (16:53)
[2021-08-24 17:31] LABS: HCT - HEMATOCRIT 24.2 % (42.0-52.0); MEAN CORPUSCULAR HEMOGLOBIN 33.3 pg (27.0-31.0); MEAN CORPUSCULAR HGB CONC 33.1 g/dL (32.0-36.0); MEAN CORPUSCULAR VOLUME 100.8 fL (80.0-94.0); MEAN PLATELET VOLUME 9.5 fL (7.4-11.4); RED BLOOD COUNT 2.4 10^6/uL (4.70-6.10); RED CELL DISTRIBUTION WIDTH 16.7 % (12.0-15.0); WHITE BLOOD COUNT 9.8 x10^3/uL (4.8-10.8)
--- NOTE | 2021-08-24 17:48 | ANESTHESIA POST OP EVALUATION ---
Anesthesia Post Eval - Post Anesthesia Eval Vitals: Last Vital Signs Temp 36.4 C L 08/24/21 16:31 Pulse 118 H 08/24/21 17:28 Resp 16 08/24/21 16:31 BP 110/78 08/24/21 17:28 Pulse Ox 100 08/24/21 16:31 CV Function Including HR & BP: Stable Pain Control: Satisfactory Nausea & Vomiting: Negative Mental Status: Baseline Respiratory Status: Airway Patent Hydration Status: Satisfactory Anesthesia Complications: None
[2021-08-24] MEDS ORDERED: CARBOXYMETHYLCELLULOSE OPHTH DROPS EACHEYE PRN (19:26)
[2021-08-24] MEDS: PANTOPRAZOLE 40 MG TABLET PO SCH (20:43)
[2021-08-24] MEDS: clonazePAM 0.5 MG TABLET PO PRN (23:30)
[2021-08-24] MEDS ORDERED: SODIUM CHLORIDE 0.9% 1,000 ML IV SCH (23:43)
[2021-08-25] MEDS: SODIUM CHLORIDE FLUSH 0.9% 10 ML SYRINGE IVP SCH ×4 (01:46→23:27)
[2021-08-25] MEDS: diltiaZEM 30 MG TABLET PO SCH ×5 (05:39→23:27)
[2021-08-25] MEDS: LEVALBUTEROL 1.25 MG/3 ML NEB INH PRN ×4 (05:51→19:57)
[2021-08-25] MEDS: FORMOTEROL FUMARATE NEB 20 MCG/2 ML INH SCH ×2 (05:52→19:57)
[2021-08-25] MEDS: BUDESONIDE 0.5 MG/2 ML NEB INH SCH ×2 (05:52→19:57)
[2021-08-25] MEDS: LEVOTHYROXINE 125 MCG TABLET PO SCH (06:16)
[2021-08-25 06:26] LABS: BASOPHILS % (AUTO) 0.3 %; EOSINOPHILS # (AUTO) 0.4 10^3/uL (0.0-0.7); EOSINOPHILS % (AUTO) 4.4 %; HCT - HEMATOCRIT 23.5 % (42.0-52.0); HGB - HEMOGLOBIN 7.6 g/dL (14.0-18.0); LYMPHOCYTES # (AUTO) 1.4 10^3/uL (1.5-3.5); LYMPHOCYTES % (AUTO) 15.7 %; MEAN CORPUSCULAR HEMOGLOBIN 32.5 pg (27.0-31.0); MEAN CORPUSCULAR HGB CONC 32.3 g/dL (32.0-36.0); MEAN CORPUSCULAR VOLUME 100.4 fL (80.0-94.0); MEAN PLATELET VOLUME 9.8 fL (7.4-11.4); MONOCYTES # (AUTO) 0.8 10^3/uL (0.0-1.0); MONOCYTES % (AUTO) 8.8 %; NEUTROPHILS # (AUTO) 6.3 10^3/uL (1.5-6.6); NEUTROPHILS % (AUTO) 70.5 %; PLT - PLATELET COUNT 184 10^3/uL (130-450); RED BLOOD COUNT 2.34 10^6/uL (4.70-6.10); RED CELL DISTRIBUTION WIDTH 16.8 % (12.0-15.0); WHITE BLOOD COUNT 8.9 x10^3/uL (4.8-10.8)
[2021-08-25 06:36] LABS: CALCIUM 7.7 mg/dL (8.5-10.3); CREATININE 0.5 mg/dL (0.6-1.2); POTASSIUM 3.7 mmol/L (3.5-5.0)
--- NOTE | 2021-08-25 08:32 | PROVIDER PROGRESS NOTE ---
Assessment/Plan - Problem List (1) GI bleed Qualifiers: GI bleed type/associated pathology: melena Qualified Code(s): K92.1 - Melena Assessment/Plan: 08/25 Hemoglobin this morning was 7.6. The patient was transfused another unit of packed red blood cells. He received Lasix 40 mg IV in the morning and in the evening. We will recheck CBC this evening and tomorrow morning. 08/24 Patient was transfused 2 units of packed red blood cells yesterday. Hemoglobin has remained stable at 8.0 with a hematocrit of 24.2 today. He underwent an EGD today which showed 2 ulcers but no active bleed. General surgery recommendation was to continue Protonix 40 mg p.o. twice daily. Patient will be restarted on his Xarelto after a total of 3 days without. He will restart Xarelto on 08/25/2020 1 PM. A soft diet was initiated. (2) Atrial fibrillation with RVR Assessment/Plan: Heart rate improved to 90 by evening On digoxin 125 mcg p.o. daily. On metoprolol tartrate 50 mg p.o. twice daily. Diltiazem 60 mg p.o. every 6 hours. (3) Anxiety Assessment/Plan: On clonazepam 0.5 mg p.o. twice daily as needed. (4) Hypothyroidism Assessment/Plan: On Synthroid 125 mcg p.o. daily. Will continue. TSH was 14.71 with T4 level of 6.65 - Current Meds Current Meds: Current Medications Generic Name Dose Route Start Last Admin Trade Name Freq PRN Reason Stop Dose Admin Budesonide 0.5 mg 08/23/21 19:00 08/25/21 05:52 Budesonide 0.5 Mg/2 Ml Neb INH 0.5 mg RTBID FABIANO Administration Carboxymethylcellulose 1 drops 08/24/21 19:26 08/24/21 19:36 Carboxymethylcellulose Ophth Drops EACHEYE 1 drops PRN PRN Administration Dry Eye Clonazepam 0.5 mg 08/23/21 16:37 08/24/21 23:30 Clonazepam 0.5 Mg Tablet PO 0.5 mg BID PRN Administration Anxiety Digoxin 125 mcg 08/24/21 09:00 08/24/21 11:49 Digoxin 125 Mcg Tablet PO 125 mcg DAILY FABIANO Administration Diltiazem HCl 60 mg 08/25/21 00:00 08/25/21 05:39 Diltiazem 30 Mg Tablet PO 60 mg Q6HR FABIANO Administration Formoterol Fumarate 20 mcg 08/23/21 19:00 08/25/21 05:52 Formoterol Fumarate Neb 20 Mcg/2 Ml INH 20 mcg RTBID FABIANO Administration Sodium Chloride 1,000 mls @ 100 mls/hr 08/24/21 23:43 08/25/21 03:45 Normal Saline 0.9% IV 100 mls/hr .Q10H FABIANO Administration Levalbuterol HCl 1.25 mg 08/24/21 23:48 08/25/21 05:51 Levalbuterol 1.25 Mg/3 Ml Neb INH 1.25 mg Q4H PRN Administration Shortness of Air/Wheezing Levothyroxine Sodium 125 mcg 08/24/21 07:00 08/25/21 06:16 Levothyroxine 125 Mcg Tablet PO 125 mcg QDAC FABIANO Administration Metoprolol Tartrate 50 mg 08/23/21 21:00 08/24/21 20:40 Metoprolol Tartrate 50 Mg Tablet PO 50 mg BID FABIANO Administration Pantoprazole Sodium 40 mg 08/24/21 21:00 08/24/21 20:43 Pantoprazole 40 Mg Tablet PO 40 mg BID FABIANO Administration Potassium Chloride 20 meq 08/24/21 09:00 08/24/21 11:49 Potassium Chloride 20 Meq Tablet PO 20 meq DAILY FABIANO Administration Sertraline HCl 50 mg 08/24/21 09:00 08/24/21 08:35 Sertraline 50 Mg Tablet PO 50 mg DAILY FABIANO Administration Sodium Chloride 10 ml 08/23/21 12:11 08/23/21 21:45 Sodium Chloride Flush 0.9% 10 Ml Syringe IVP 40 ml PRN PRN Administration NEEDED PER PROVIDER ORDERS Sodium Chloride 10 ml 08/23/21 17:00 08/25/21 01:46 Sodium Chloride Flush 0.9% 10 Ml Syringe IVP Not Given 0100,0900,1700 FABIANO - Lab Result Fish Bone Diagrams: 08/25/21 06:05 08/25/21 06:05 - Additional Planning My Orders: My Active Orders 08/24/21 09:00 Digoxin [Lanoxin] 125 mcg PO DAILY Potassium Chloride [K-Dur] 20 meq PO DAILY Sertraline [Zoloft] 50 mg PO DAILY 08/24/21 Dinner Soft (Low Fiber) Diet [DIET] 08/24/21 19:26 Carboxymethylcellulose 1% Opht [Refresh 1% Ophth Drops] 1 drops EACHEYE PRN PRN 08/24/21 21:00 Pantoprazole [Protonix] 40 mg PO BID 08/25/21 RBC, LEUKOREDUCED Routine TYPE AND SCREEN Routine 08/25/21 00:00 diltiaZEM [Cardizem] 60 mg PO Q6HR 08/25/21 06:40 RT [Oxygen Therapy] [RC] .PRN 08/25/21 08:30 Transfuse RBCs Leukoreduced [RC] .ONCE 08/26/21 05:00 BMP - BASIC METABOLIC PANEL [CHEM] DAILYLAB CBC - COMP BLD CT W/AUTO DIFF [HEME] DAILYLAB 08/27/21 05:00 BMP - BASIC METABOLIC PANEL [CHEM] DAILYLAB CBC - COMP BLD CT W/AUTO DIFF [HEME] DAILYLAB 08/28/21 05:00 BMP - BASIC METABOLIC PANEL [CHEM] DAILYLAB CBC - COMP BLD CT W/AUTO DIFF [HEME] DAILYLAB Subjective - Subjective Patient Reports: Other (Patient was resting comfortably in the bedside recliner at time of exam. He complained of dyspnea. He had crackles on auscultation of lungs bilaterally.He had crackles on auscultation of lungs bilaterally.) Objective Vital Signs: Vital Signs - 24 hr 08/24/21 08/24/21 08/24/21 08:44 08:45 09:20 Temperature Heart Rate 123 H Heart Rate [ 126 H Brachial] Respiratory 18 22 Rate Blood Pressure 110/70 Blood Pressure [Left Brachial artery] Blood Pressure 110/70 [Right Brachial artery] O2 Saturation 97 08/24/21 08/24/21 08/24/21 09:27 09:44 11:57 Temperature Heart Rate 120 H Heart Rate [ 124 H 122 H Brachial] Respiratory 22 Rate Blood Pressure Blood Pressure [Left Brachial artery] Blood Pressure 99/65 97/67 [Right Brachial artery] O2 Saturation 08/24/21 08/24/21 08/24/21 13:31 14:23 15:18 Temperature 36.4 C L 36.4 C L Heart Rate Heart Rate [ 123 H 121 H 119 H Brachial] Respiratory 18 16 Rate Blood Pressure Blood Pressure [Left Brachial artery] Blood Pressure 106/74 101/64 110/64 [Right Brachial artery] O2 Saturation 100 95 08/24/21 08/24/21 08/24/21 16:00 16:05 16:22 Temperature 36.4 C L 36.4 C L Heart Rate Heart Rate [ 122 H 123 H Brachial] Respiratory 16 16 Rate Blood Pressure 127/69 Blood Pressure 130/76 [Left Brachial artery] Blood Pressure 127/69 [Right Brachial artery] O2 Saturation 98 98 08/24/21 08/24/21 08/24/21 16:31 17:13 17:14 Temperature 36.4 C L Heart Rate Heart Rate [ 121 H 123 H Brachial] Respiratory 16 Rate Blood Pressure 125/65 Blood Pressure 127/75 125/65 [Left Brachial artery] Blood Pressure [Right Brachial artery] O2 Saturation 100 08/24/21 08/24/21 08/24/21 17:19 17:23 17:28 Temperature Heart Rate Heart Rate [ 114 H 101 H 118 H Brachial] Respiratory Rate Blood Pressure Blood Pressure 122/70 98/73 110/78 [Left Brachial artery] Blood Pressure [Right Brachial artery] O2 Saturation 08/24/21 08/24/21 08/24/21 18:07 19:25 20:40 Temperature 36.4 C L Heart Rate 84 Heart Rate [ 122 H Brachial] Respiratory 20 16 Rate Blood Pressure 119/59 L Blood Pressure 118/76 [Left Brachial artery] Blood Pressure [Right Brachial artery] O2 Saturation 98 08/24/21 08/24/21 08/24/21 23:08 23:41 23:43 Temperature 36.4 C L Heart Rate 84 Heart Rate [ 100 Brachial] Respiratory 16 20 Rate Blood Pressure 82/62 L Blood Pressure 82/62 L [Left Brachial artery] Blood Pressure [Right Brachial artery] O2 Saturation 97 08/25/21 08/25/21 08/25/21 05:39 05:53 07:36 Temperature 36.5 C 36.6 C Heart Rate 84 Heart Rate [ 119 H 112 H Brachial] Respiratory 20 18 16 Rate Blood Pressure 98/73 Blood Pressure [Left Brachial artery] Blood Pressure 98/73 93/65 [Right Brachial artery] O2 Saturation 97 Oxygen O2 Source Nasal cannula I&O (Last 24 Hrs): Intake and Output Totals x24h 08/23/21 08/24/21 08/25/21 23:59 23:59 23:59 Intake Total 2574.667 6128.333 730 Output Total 755 1300 175 Balance 1822.468 4761.333 555 Comments/Notes: General: Alert, Oriented x3, No acute distress HEENT: PERRLA, EOMI Neck: Supple, No JVD Neuro: Alert, Non Focal, Oriented Times 3 Cardiovascular: Other (Irregularly irregular. Tachycardic.) Respiratory: Chest non-tender, Mild dyspnea, Mild crackles Abdomen: Normal bowel sounds, Soft, No tenderness, No masses Extremities: No clubbing, No cyanosis, No edema, No tenderness/swelling Skin: No rashes, No breakdown, No significant lesion - Results Results: Laboratory Results WBC 8.9 x10^3/uL (4.8-10.8) 08/25/21 06:05 RBC 2.34 10^6/uL (4.70-6.10) L 08/25/21 06:05 Hgb 7.6 g/dL (14.0-18.0) L 08/25/21 06:05 Hct 23.5 % (42.0-52.0) L 08/25/21 06:05 MCV 100.4 fL (80.0-94.0) H 08/25/21 06:05 MCH 32.5 pg (27.0-31.0) H 08/25/21 06:05 MCHC 32.3 g/dL (32.0-36.0) 08/25/21 06:05 RDW 16.8 % (12.0-15.0) H 08/25/21 06:05 Plt Count 184 10^3/uL (130-450) 08/25/21 06:05 MPV 9.8 fL (7.4-11.4) 08/25/21 06:05 Neut # (Auto) 6.3 10^3/uL (1.5-6.6) 08/25/21 06:05 Lymph # (Auto) 1.4 10^3/uL (1.5-3.5) L 08/25/21 06:05 [place] # (Auto) 0.8 10^3/uL (0.0-1.0) 08/25/21 06:05 Eos # (Auto) 0.4 10^3/uL (0.0-0.7) 08/25/21 06:05 Baso # (Auto) 0.0 10^3/uL (0.0-0.1) 08/25/21 06:05 Absolute Nucleated RBC 0.00 x10^3/uL 08/25/21 06:05 Nucleated RBC % 0.0 /100WBC 08/25/21 06:05 PT 21.5 secs (9.9-12.6) H 08/23/21 11:37 INR 1.9 (0.8-1.2) H 08/23/21 11:37 APTT 31.5 secs (24.9-33.3) 08/23/21 11:37 Sodium 134 mmol/L (135-145) L 08/25/21 06:05 Potassium 3.7 mmol/L (3.5-5.0) 08/25/21 06:05 Chloride 105 mmol/L (101-111) 08/25/21 06:05 Carbon Dioxide 23 mmol/L (21-32) 08/25/21 06:05 Anion Gap 6.0 (6-13) 08/25/21 06:05 BUN 15 mg/dL (6-20) 08/25/21 06:05 Creatinine 0.5 mg/dL (0.6-1.2) L 08/25/21 06:05 Estimated GFR (MDRD) 158 (>89) 08/25/21 06:05 Glucose 95 mg/dL (70-100) 08/25/21 06:05 Calcium 7.7 mg/dL (8.5-10.3) L 08/25/21 06:05 Magnesium 1.9 mg/dL (1.7-2.8) 08/24/21 06:00 Total Bilirubin 0.8 mg/dL (0.2-1.0) 08/23/21 11:25 AST 37 IU/L (10-42) 08/23/21 11:25 ALT 37 IU/L (10-60) 08/23/21 11:25 Alkaline Phosphatase 63 IU/L (42-121) 08/23/21 11:25 Troponin I High Sens 80.5 ng/L (2.3-19.7) H* 08/23/21 17:56 B-Natriuretic Peptide 358 pg/mL (5-100) H 08/25/21 06:05 Total Protein 6.0 g/dL (6.7-8.2) L 08/23/21 11:25 Albumin 3.4 g/dL (3.2-5.5) 08/23/21 11:25 Globulin 2.6 g/dL (2.1-4.2) 08/23/21 11:25 Albumin/Globulin Ratio 1.3 (1.0-2.2) 08/23/21 11:25 Lipase 31 U/L (22-51) 08/23/21 11:25 TSH 14.71 uIU/mL (0.34-5.60) H 08/23/21 11:25 Thyroxine (T4) 6.65 ug/dL (6.09-12.23) 08/23/21 11:25 Nasal Adenovirus (PCR) NOT DETECTED 08/23/21 12:30 Nasal B. parapertussis DNA (PCR) NOT DETECTED 08/23/21 12:30 Nasal Coronavir 229E PCR NOT DETECTED 08/23/21 12:30 Nasal Coronavir HKU1 PCR NOT DETECTED 08/23/21 12:30 Nasal Coronavir NL63 PCR NOT DETECTED 08/23/21 12:30 Nasal Coronavir OC43 PCR NOT DETECTED 08/23/21 12:30 Nasal Enterovir/Rhinovir PCR NOT DETECTED 08/23/21 12:30 Nasal Influenza B PCR NOT DETECTED 08/23/21 12:30 Nasal Influenza A PCR NOT DETECTED 08/23/21 12:30 Nasal Parainfluen 1 PCR NOT DETECTED 08/23/21 12:30 Nasal Parainfluen 2 PCR NOT DETECTED 08/23/21 12:30 Nasal Parainfluen 3 PCR NOT DETECTED 08/23/21 12:30 Nasal Parainfluen 4 PCR NOT DETECTED 08/23/21 12:30 Nasal RSV (PCR) NOT DETECTED 08/23/21 12:30 Nasal B.pertussis DNA PCR NOT DETECTED 08/23/21 12:30 Nasal C.pneumoniae (PCR) NOT DETECTED 08/23/21 12:30 Lewis Human Metapneumo PCR NOT DETECTED 08/23/21 12:30 Nasal M.pneumoniae (PCR) NOT DETECTED 08/23/21 12:30 Nasal SARS-CoV-2 (PCR) NOT DETECTED 08/23/21 12:30 Last Dose Date UNK 08/23/21 11:25 Last Dose Time UNK 08/23/21 11:25 Digoxin 0.4 ng/mL 08/23/21 11:25 Blood Type B POSITIVE 08/23/21 11:25 Blood Type Recheck B POSITIVE 08/23/21 17:56 Antibody Screen NEGATIVE 08/23/21 11:25 Crossmatch IS Only See Detail 08/23/21 11:25 ABX Reporting Has patient been on IV antibiotics over the past 48 hours?: No
--- NOTE | 2021-08-25 08:32 | XRAY Report ---
PROCEDURE: Chest 1 View X-Ray INDICATIONS: O2 desat TECHNIQUE: One view of the chest was acquired. COMPARISON: Lung bases on CT abdomen and pelvis 08/23/2021. CXR 08/23/2021, 02/18/2021. FINDINGS: Surgical changes and devices: None. Lungs and pleura: No pleural effusions or pneumothorax. No consolidation identified. Increased pulmo nary markings bilaterally with cephalization. Mediastinum: Mediastinal contours appear unchanged. Asymmetric elevation of the right hemidiaphragm. Heart size is at the upper limits of normal. Bones and chest wall: No suspicious bony lesions. Overlying soft tissues appear unremarkable. IMPRESSION: Mild fluid overload/CHF. Reviewed by: Yordy Renee MD on 08/25/2021 8:31 AM [facility] Approved by: Yordy Renee MD on 08/25/2021 8:31 AM [facility] Station ID: [id number]
[2021-08-25] MEDS: DIGOXIN 125 MCG TABLET PO SCH (09:10)
[2021-08-25] MEDS: PANTOPRAZOLE 40 MG TABLET PO SCH ×2 (09:12→20:12)
[2021-08-25] MEDS: POTASSIUM CHLORIDE 20 MEQ TABLET PO SCH (09:12)
[2021-08-25] MEDS: SERTRALINE 50 MG TABLET PO SCH (09:14)
[2021-08-25] MEDS ORDERED: FUROSEMIDE 40 MG/4 ML VIAL IVP STA (10:40)
[2021-08-25] MEDS: METOPROLOL TARTRATE 50 MG TABLET PO SCH ×2 (10:53→20:12)
[2021-08-25] MEDS ORDERED: FUROSEMIDE 40 MG/4 ML VIAL IVP SCH (15:30)
[2021-08-25] MEDS: SODIUM CHLORIDE FLUSH 0.9% 10 ML SYRINGE IVP PRN (16:02)
[2021-08-25 18:29] LABS: BASOPHILS % (AUTO) 0.3 %; EOSINOPHILS # (AUTO) 0.3 10^3/uL (0.0-0.7); EOSINOPHILS % (AUTO) 2.2 %; HCT - HEMATOCRIT 27.5 % (42.0-52.0); HGB - HEMOGLOBIN 8.9 g/dL (14.0-18.0); LYMPHOCYTES # (AUTO) 1.3 10^3/uL (1.5-3.5); LYMPHOCYTES % (AUTO) 10.8 %; MEAN CORPUSCULAR HEMOGLOBIN 31.7 pg (27.0-31.0); MEAN CORPUSCULAR HGB CONC 32.4 g/dL (32.0-36.0); MEAN CORPUSCULAR VOLUME 97.9 fL (80.0-94.0); MEAN PLATELET VOLUME 9.5 fL (7.4-11.4); MONOCYTES # (AUTO) 0.9 10^3/uL (0.0-1.0); MONOCYTES % (AUTO) 7.5 %; NEUTROPHILS # (AUTO) 9.1 10^3/uL (1.5-6.6); NEUTROPHILS % (AUTO) 78.6 %; PLT - PLATELET COUNT 210 10^3/uL (130-450); RED BLOOD COUNT 2.81 10^6/uL (4.70-6.10); RED CELL DISTRIBUTION WIDTH 19.2 % (12.0-15.0); WHITE BLOOD COUNT 11.6 x10^3/uL (4.8-10.8)
[2021-08-25] MEDS: clonazePAM 0.5 MG TABLET PO PRN (20:12)
[2021-08-26] MEDS: LEVALBUTEROL 1.25 MG/3 ML NEB INH PRN ×2 (03:48→07:49)
[2021-08-26] MEDS: LEVOTHYROXINE 125 MCG TABLET PO SCH (05:58)
[2021-08-26] MEDS: diltiaZEM 30 MG TABLET PO SCH (05:59)
[2021-08-26] MEDS: FORMOTEROL FUMARATE NEB 20 MCG/2 ML INH SCH (07:49)
[2021-08-26] MEDS: BUDESONIDE 0.5 MG/2 ML NEB INH SCH (07:49)
[2021-08-26 09:43] LABS: HCT - HEMATOCRIT 24.6 % (42.0-52.0); HGB - HEMOGLOBIN 8.1 g/dL (14.0-18.0); MEAN CORPUSCULAR HGB CONC 32.9 g/dL (32.0-36.0); MEAN CORPUSCULAR VOLUME 97.2 fL (80.0-94.0); RED BLOOD COUNT 2.53 10^6/uL (4.70-6.10); RED CELL DISTRIBUTION WIDTH 18.8 % (12.0-15.0); WHITE BLOOD COUNT 9.2 x10^3/uL (4.8-10.8)
[2021-08-26 09:44] LABS: BASOPHILS % (AUTO) 0.3 %; EOSINOPHILS # (AUTO) 0.3 10^3/uL (0.0-0.7); EOSINOPHILS % (AUTO) 3.3 %; LYMPHOCYTES # (AUTO) 1.1 10^3/uL (1.5-3.5); LYMPHOCYTES % (AUTO) 12.3 %; MEAN PLATELET VOLUME 10.1 fL (7.4-11.4); MONOCYTES # (AUTO) 0.9 10^3/uL (0.0-1.0); MONOCYTES % (AUTO) 9.8 %; NEUTROPHILS # (AUTO) 6.8 10^3/uL (1.5-6.6); NEUTROPHILS % (AUTO) 73.8 %; PLT - PLATELET COUNT 204 10^3/uL (130-450)
[2021-08-26] MEDS: DIGOXIN 125 MCG TABLET PO SCH (10:29)
[2021-08-26] MEDS: PANTOPRAZOLE 40 MG TABLET PO SCH (10:29)
[2021-08-26] MEDS: SERTRALINE 50 MG TABLET PO SCH (10:29)
[2021-08-26] MEDS: POTASSIUM CHLORIDE 20 MEQ TABLET PO SCH (10:29)
[2021-08-26] MEDS: SODIUM CHLORIDE FLUSH 0.9% 10 ML SYRINGE IVP SCH ×2 (10:30→15:55)
[2021-08-26] MEDS: METOPROLOL TARTRATE 50 MG TABLET PO SCH (10:30)
[2021-08-26] MEDS ORDERED: FUROSEMIDE 40 MG/4 ML VIAL IVP STA (10:40)
[2021-08-26 13:00] LABS: POTASSIUM 3.4 mmol/L (3.5-5.0)
[2021-08-26 13:01] LABS: CALCIUM 8.2 mg/dL (8.5-10.3); CREATININE 0.5 mg/dL (0.6-1.2)
--- NOTE | 2021-08-26 15:30 | DISCHARGE SUMMARY ---
Discharge Summary Admit Date: 08/23/21 Discharge Date: 08/26/21 Discharging Provider: Katja Wilde Primary Care Provider: Daniella Childers Code Status: Attempt Resuscitation Condition at Discharge: Stable Discharge Disposition: 01 Home, Self Care - DIAGNOSES Admission Diagnoses: GI Bleed Atrial fibrillation with rapid ventricular rhythm Anxiety Hypothyroidism Discharge Diagnoses with Status of Each Condition: GI Bleed: Acute. Stable. 2/2 Peptic Ulcers. s/p EGD. s/p 3 units PRBC transfusion. Peptic Ulcer: Acute. Protonix 40mg po bid Atrial fibrillation with rapid ventricular rhythm: Improved heart rate. Continue patient's metoprolol and digoxin Anxiety: Continue patient's clonazepam Hypothyroidism: Chronic. Continue patient's synthroid - HPI History of Present Illness: Patient is an 86-year-old male who presented to the ED with complaint of dyspnea, anxiety and melena. Melena has been going on for 1 week. He was concerned today when he became significantly dyspneic. He felt it was due to anxiety and took an Ativan which did not result in any improvement. He also complained of dizziness, weakness and chills. In the ED on rectal exam he was noted to have melena. His hemoglobin was 7.9. His hemoglobin has dropped 4 points in the past 6 months. He was also very tachycardic with heart rate as high as 125. Troponin was 84.3 and 81.2. He has atrial fibrillation and is on X arelto, Toprol-XL and Cardizem CD. As a result of this findings he was presented for admission. At bedside he is resting comfortably. He denies chest pain, abdominal pain, nausea, vomiting or fever. - HOSPITAL COURSE Hospital Course: And was transfused a total of 3 units of packed red blood cells during his hospital stay. His lowest hemoglobin was 6.9. By the day of discharge hemoglobin was 8.1. He underwent an EGD done by general surgery and 2 peptic ulcers where noted in the stomach. There was no active bleeding thus no intervention was done. Patient was prescribed Protonix 40 mg IV twice daily. This was then switched to Protonix 40 mg p.o. twice daily on which he was discharged. He was advised to avoid NSAIDs, acidic and spicy food. He was also prescribed ferrous sulfate 325 mg tablets. To take 1 tablet p.o. twice daily. He was in A. fib with RVR and heart rate was in the 120s. This was treated with diltiazem, metoprolol and digoxin. His heart rate was less than 100 by the time of discharge. He was advised to resume his Xarelto on 08/29/2021. He had dyspnea which was due to blood transfusion and fluid resuscitation. He received 3 doses of Lasix 40 mg IV over the course of his hospital stay. He was seen by respiratory therapy and deemed to be in need of supplemental oxygen. Patient was not hypoxic at rest on room air with oxygen saturation of 93%. However with exertion on room air his oxygen saturation were 85%. On 2 L/min nasal cannula with exertion his oxygen saturation improved to 92%. As a result he was ordered home oxygen, room air at rest and 2 L with exertion to treat COPD. He underwent a 2D echocardiogram on 08/25/2021 which showed left ventricular systolic function of 60 to 65%. There was no regional wall motion abnormality. Right atrial pressure was at least 15 mmHg. He was also seen by physical therapy and home health PT/OT was recommended. However the patient declined. He states he would like to continue using his four-wheel walker at home. Patient was discharged in stable condition. He was advised to follow-up with his primary care physician within 7 to 10 days or as needed. The discharge plan was also discussed with the patient's Vandana who expressed understanding. - ALLERGIES Allergies/Adverse Reactions: Allergies Allergy/AdvReac Type Severity Reaction Status Date / Time No Known Drug Allergies Allergy Verified 08/23/21 11:06 - MEDICATIONS Home Medications: Ambulatory Orders Medication Instructions Recorded Confirmed Levothyroxine Sodium [Tirosint] 125 mcg PO DAILY 01/29/13 08/23/21 Cyanocobalamin (Vitamin B-12) 2,500 mcg SL DAILY 02/28/13 08/23/21 [Vitamin B-12] Arformoterol Tartrate [Brovana] 15 mcg NEB DAILY 08/09/19 08/23/21 Budesonide 1 inh INH BID 08/09/19 08/23/21 Ipratropium/Albuterol [Duoneb] 3 ml INH DAILY 08/09/19 08/23/21 clonazePAM [Clonazepam] 0.5 - 1 mg PO DAILY PRN 08/09/19 08/23/21 Potassium Chloride [K-Dur] 20 meq PO DAILY 08/10/19 08/23/21 Albuterol Sulfate [Proair Hfa 1 puffs PO PRN PRN 02/15/21 08/23/21 Inhaler] Cholecalciferol (Vitamin D3) 50 mcg PO DAILY 02/15/21 08/23/21 [Vitamin D3] Sertraline [Zoloft] 50 mg PO DAILY 02/18/21 08/23/21 Digoxin [Lanoxin] 125 mcg PO DAILY #30 tablet 02/19/21 08/23/21 Furosemide [Lasix] 20 mg PO BIDDIURETIC #60 tablet 02/19/21 08/23/21 Metoprolol Tartrate [Lopressor] 50 mg PO BID #60 tablet 02/19/21 08/23/21 Rivaroxaban [Xarelto] 20 mg PO QDDINNER #30 tablet 02/21/21 08/23/21 Ferrous Sulfate 325 mg PO BID 30 Days #60 tab 08/26/21 Pantoprazole [Protonix] 40 mg PO BID 30 Days #60 tablet 08/26/21 - PHYSICAL EXAM AT DISCHARGE General Appearance: positive: Alert, Mild distress (respiratory) Eyes Bilateral: positive: PERRL, EOMI Neck: positive: No JVD, Trachea midline Respiratory: positive: Chest non-tender, Wheezes (mild) Abdomen: positive: Non-tender, No organomegaly, Nml bowel sounds, No distention. negative: Guarding, Rebound Back: positive: Nml inspection Skin: positive: Color nml, No rash, Warm, Dry Extremities: positive: Non-tender, Full ROM, Nml appearance, No pedal edema Neurologic/Psychiatric: positive: Oriented x3, Mood/affect nml - LABS Result Diagrams: 08/26/21 07:25 08/26/21 07:25 - TIME SPENT Time Spent in Discharge (Minutes): 25
--- NOTE | 2021-08-26 15:33 | Discharge Plan ---
Discharge Plan Problem Reviewed?: Yes Disposition: Home, Self Care Condition: Stable Prescriptions: Ferrous Sulfate 325 mg PO BID 30 Days #60 tab Pantoprazole [Protonix] 40 mg PO BID 30 Days #60 tablet Diet: Cardiac Activity Restrictions: Activity as Tolerated Assistance Devices: Walker Health Concerns: You were admitted on 08/23/2021 with difficulty breathing and black tarry stools. At the time of presentation your hemoglobin was 7.9. It then dropped to 6.8. You were seen by general surgery on taken to the OR for an EGD. You were found to have 2 ulcers but there were not bleeding at the time of the exam. You were transfused a total of 3 units of packed red blood cells. By the time of discharge her hemoglobin was 8.1. You have not had any more episodes of bleeding. You required IV Lasix due to some fluid overload from blood transfusion and fluid administration. Your heart rate has been Around 120 during your hospital stay. You were treated with diltiazem, metoprolol and digoxin. By the time of discharge your resting heart rate was in the 90s. Seen by physical therapy and it was recommended that you have home PT/OT. However you declined service. You were also seen by the respiratory therapist and underwent a desaturation study. It was determined that you would need supplemental oxygen at home with activity. You required 2 L of oxygen via nasal cannula to maintain your oxygen saturation greater than 90%. This has been arranged. You will be discharged with a prescription for Protonix 40 mg p.o. twice daily. You will also be prescribed supplemental iron. Ferrous sulfate 325mg po bid upon discharge You have been advised to avoid acidic foods for example orange juice, tomatoes. Also avoid caffeinated coffee and spicy foods. You are also to avoid any NSAIDs like naproxen, Celebrex, Aleve or ibuprofen You were restarted on a soft diet. You may advance your diet as tolerated at home. You are to resume your Xarelto 3 days from discharge. This will be on 08/29/2021. You are to watch out for any potential symptoms of bleeding again. This would include black tarry stools or worsening difficulty breathing, weakness, dizziness. Do not hesitate to go to the emergency department with any of the symptoms. The above plan was discussed with your he expressed understanding and are in agreement with the plan. You may follow-up with your primary care physician within 7 to 10 days or as needed. No Smoking: If you smoke, Please STOP! Call for help. Follow-up with: Daniella Childers ARNP [Primary Care Provider] -
[2021-08-26 16:43] VITALS: BP 107/55
== END 2021-08-26 19:20 | disposition home or self-care (01) | DRG 378 ==
LOC: ED 10:53 → MS2 12:11
PROVIDERS: ADMIT Internal Medicine; ATTEND Internal Medicine
PROC: 30233N1 Transfusion of Nonautologous Red Blood Cells into Peripheral Vein, Percutaneous Approach (ICD-10-PCS; 2021-08-23)
PROC: 0DB68ZX Excision of Stomach, Via Natural or Artificial Opening Endoscopic, Diagnostic (ICD-10-PCS; principal; 2021-08-24 14:30)
DX: K92.1 Melena (principal); K25.0 Acute gastric ulcer with hemorrhage; I48.92 Unspecified atrial flutter; D64.9 Anemia, unspecified; R00.0 Tachycardia, unspecified; R06.02 Shortness of breath; R77.8 Other specified abnormalities of plasma proteins; R94.31 Abnormal electrocardiogram [ECG] [EKG]; D62 Acute posthemorrhagic anemia; I48.91 Unspecified atrial fibrillation; F41.9 Anxiety disorder, unspecified; E03.9 Hypothyroidism, unspecified; J43.9 Emphysema, unspecified; K21.9 Gastro-esophageal reflux disease without esophagitis; Z20.822 Contact with and (suspected) exposure to COVID-19; Z79.01 Long term (current) use of anticoagulants; Z79.890 Hormone replacement therapy; Z79.899 Other long term (current) drug therapy; Z87.891 Personal history of nicotine dependence
CPT/HCPCS: 36415; 71045; 74177; 80048; 80053; 80162; 83690; 83735; 83880; 84436; 84443; 84484; 85025; 85027; 85610; 85730; 86850; 86900; 86901; 86920; 87631; 93005; 93308; 94640; 94664; 94761; 97162; 99284; 99285; A9270; J7120; J7626; P9016; Q9967; 0202U

== ENCOUNTER 2021-09-28 13:41 | Outpatient (CLI) | payer MEDICARE ==
[2021-09-28 14:50] LABS: BASOPHILS % (AUTO) 0.4 %; EOSINOPHILS # (AUTO) 0.3 10^3/uL (0.0-0.7); EOSINOPHILS % (AUTO) 3.4 %; HCT - HEMATOCRIT 33.7 % (42.0-52.0); HGB - HEMOGLOBIN 10.4 g/dL (14.0-18.0); LYMPHOCYTES # (AUTO) 1.2 10^3/uL (1.5-3.5); LYMPHOCYTES % (AUTO) 12.7 %; MEAN CORPUSCULAR HEMOGLOBIN 29.2 pg (27.0-31.0); MEAN CORPUSCULAR HGB CONC 30.9 g/dL (32.0-36.0); MEAN CORPUSCULAR VOLUME 94.7 fL (80.0-94.0); MEAN PLATELET VOLUME 9.4 fL (7.4-11.4); MONOCYTES # (AUTO) 0.8 10^3/uL (0.0-1.0); MONOCYTES % (AUTO) 9.3 %; NEUTROPHILS # (AUTO) 6.7 10^3/uL (1.5-6.6); PLT - PLATELET COUNT 231 10^3/uL (130-450); RED BLOOD COUNT 3.56 10^6/uL (4.70-6.10); RED CELL DISTRIBUTION WIDTH 17.2 % (12.0-15.0)
[2021-09-28 15:11] LABS: ALBUMIN 3.8 g/dL (3.2-5.5); ALBUMIN/GLOBULIN RATIO 1.2 (1.0-2.2); BILIRUBIN,TOTAL 0.9 mg/dL (0.2-1.0); CREATININE 0.9 mg/dL (0.6-1.2); POTASSIUM 4.3 mmol/L (3.5-5.0); TOTAL PROTEIN 7.1 g/dL (6.7-8.2)
== END 2021-09-28 13:42 | disposition home or self-care (01) ==
LOC: LAB 13:41
PROVIDERS: ATTEND Registered Nurse
DX: R60.0 Localized edema (principal); D50.9 Iron deficiency anemia, unspecified
CPT/HCPCS: 36415; 80053; 82728; 83540; 84466; 85025

== ENCOUNTER 2023-02-13 11:32 | Outpatient (CLI) | payer MEDICARE ==
--- NOTE | 2023-02-13 14:30 | XRAY Report ---
PROCEDURE: Chest 2 View X-Ray INDICATIONS: COPD TECHNIQUE: 2 views of the chest were acquired. COMPARISON: Chest radiographs 08/25/2021. FINDINGS: Surgical changes and devices: None. Lungs and pleura: Stable chronic elevation of the right hemidiaphragm. Coarse bilateral interstitial markings are again seen. There is increased anteroposterior diameter of the chest, which can be seen in the setting of COPD. No pleural effusion or pneumothorax. Mediastinum: Borderline size of the cardiac silhouette does not appear significantly changed. Bones and chest wall: No suspicious bony lesions. Overlying soft tissues appear unremarkable. IMPRESSION: 1.Bilateral interstitial prominence is likely chronic, although superimposed pulmonary vascular conge stion or an atypical or viral pneumonia is not excluded. 2.Chronic elevation of the right hemidiaphragm. Reviewed by: Bharat Gaston MD on 02/13/2023 2:29 PM PDT Approved by: Bharat Gaston MD on 02/13/2023 2:29 PM PDT Station ID: [id number]
== END 2023-02-13 11:33 | disposition home or self-care (01) ==
LOC: DI 11:32
PROVIDERS: ATTEND Registered Nurse
DX: J44.9 Chronic obstructive pulmonary disease, unspecified (principal)

== ENCOUNTER 2023-03-16 15:24 | Inpatient (IN) | payer MEDICARE ==
--- NOTE | 2023-03-16 15:52 | ED Physician Documentation ---
PD HPI SYNCOPE - Stated complaint Stated Complaint: SOA,VOMITING - Chief complaint Chief Complaint: Neuro - History obtained from History obtained from: Patient, Family - Additional information Additional information: 87-year-old gentleman with history of A-fib, not anticoagulated but he has a watchman due to prior GI bleeding, COPD. He presents with his . He has been more short of breath than normal for the last 3 days or so. Today he went out with family and they were having lunch at a local pub. He had 2 beers and then was having a lot of trouble getting in the car where he ended up syncopized in brief. When aroused he did vomit once. He has nausea but denies headache, chest pain, or abdominal pain. He admits to short of breath. PD PAST MEDICAL HISTORY - Past Medical History Cardiovascular: Atrial fibrillation Respiratory: COPD, Emphysema Neuro: Peripheral neuropathy Endocrine/Autoimmune: HyPOthyroidism GI: None : Nocturia, Frequency Psych: Anxiety Musculoskeletal: Osteoarthritis Derm: Other - Past Surgical History Past Surgical History: Yes General: Colonoscopy Ortho: Arthroscopic surgery HEENT: Cataracts - Present Medications Home Medications: Ambulatory Orders Medication Instructions Recorded Confirmed Levothyroxine Sodium [Tirosint] 125 mcg PO DAILY 01/29/13 08/23/21 Cyanocobalamin (Vitamin B-12) 2,500 mcg SL DAILY 02/28/13 08/23/21 [Vitamin B-12] Arformoterol Tartrate [Brovana] 15 mcg NEB DAILY 08/09/19 08/23/21 Budesonide 1 inh INH BID 08/09/19 08/23/21 Ipratropium/Albuterol [Duoneb] 3 ml INH DAILY 08/09/19 08/23/21 clonazePAM [Clonazepam] 0.5 - 1 mg PO DAILY PRN 08/09/19 08/23/21 Potassium Chloride [K-Dur] 20 meq PO DAILY 08/10/19 08/23/21 Albuterol Sulfate [Proair Hfa 1 puffs PO PRN PRN 02/15/21 08/23/21 Inhaler] Cholecalciferol (Vitamin D3) 50 mcg PO DAILY 02/15/21 08/23/21 [Vitamin D3] Sertraline [Zoloft] 50 mg PO DAILY 02/18/21 08/23/21 Digoxin [Lanoxin] 125 mcg PO DAILY #30 tablet 02/19/21 08/23/21 Furosemide [Lasix] 20 mg PO BIDDIURETIC #60 tablet 02/19/21 08/23/21 Metoprolol Tartrate [Lopressor] 50 mg PO BID #60 tablet 02/19/21 08/23/21 Rivaroxaban [Xarelto] 20 mg PO QDDINNER #30 tablet 02/21/21 08/23/21 Ferrous Sulfate 325 mg PO BID 30 Days #60 tab 08/26/21 Pantoprazole [Protonix] 40 mg PO BID 30 Days #60 tablet 08/26/21 - Allergies Allergies/Adverse Reactions: Allergies Allergy/AdvReac Type Severity Reaction Status Date / Time No Known Drug Allergies Allergy Verified 03/16/23 15:46 - Social History Does the pt smoke?: No Smoking Status: Never smoker Does the pt drink ETOH?: Yes Does the pt have substance abuse?: No - Immunizations Immunizations are current?: Yes - POLST Patient has POLST: No POLST Status: Full Code (pt report he request CPR but no incubation) PD ED PE NORMAL - Vitals Vital signs reviewed: Yes - General General: Alert and oriented X 3, Other (He is somnolent with pursed lip breathing and evidence of recent vomiting.) - HEENT HEENT: PERRL, EOMI - Cardiac Cardiac: Other (Irregularly irregular without murmur) - Respiratory Respiratory: Other (Pursed lip breathing, but not tachypneic. Speaking in full sentences. Mild diminished breath sounds throughout.) - Abdomen Abdomen: Non tender - Back Back: No CVA TTP, No spinal TTP - Derm Derm: Normal color, Warm and dry - Extremities Extremities: No calf tenderness / cord, Other (2+ pitting pedal edema, symmetric and chronic per .) - Neuro Neuro: Alert and oriented X 3 Eye Opening: To Voice Motor: Obeys Commands Verbal: Oriented GCS Score: 14 Results - Vitals Vitals: Vital Signs - 24 hr 03/16/23 03/16/23 03/16/23 15:40 16:15 17:00 Temperature 36.0 C L Heart Rate 62 60 56 L Respiratory 16 16 16 Rate Blood Pressure 111/64 111/64 106/68 O2 Saturation 93 93 94 If not protocol 4 4 : Oxygen Flow, liters/minute 03/16/23 03/16/23 18:31 18:42 Temperature Heart Rate 64 69 Respiratory 20 Rate Blood Pressure 114/69 O2 Saturation 92 If not protocol 2 : Oxygen Flow, liters/minute Oxygen O2 Source Nasal cannula - EKG (time done) 1545 EKG releavant findings:: EKG personally interpreted by author of this note. Relevant findings are: Rhythm: Atrial fibrillation Intervals: RBBB Ischemia: ST depression, T wave inversion - Labs Labs: Laboratory Tests 03/16/23 03/16/23 03/16/23 15:50 15:50 15:50 WBC 9.9 RBC 3.98 L Hgb 12.8 L Hct 40.0 L MCV 100.5 H MCH 32.2 H MCHC 32.0 RDW 13.0 Plt Count 206 MPV 9.6 Neut # (Auto) 7.7 H Lymph # (Auto) 1.3 L [place] # (Auto) 0.8 Eos # (Auto) 0.1 Baso # (Auto) 0.0 Absolute Nucleated RBC 0.00 Nucleated RBC % 0.0 VBG pH VBG pCO2 VBG pO2 VBG HCO3 VBG Total CO2 VBG O2 Saturation VBG Base Excess Sodium 138 Potassium 3.3 L Chloride 105 Carbon Dioxide 20 L Anion Gap 13.0 BUN 24 H Creatinine 0.8 Estimated GFR (MDRD) 92 Glucose 102 H Calcium 8.7 Phosphorus 3.6 Magnesium 2.0 Total Bilirubin 0.7 AST 39 ALT 38 Alkaline Phosphatase 79 Troponin I High Sens 81.0 H* B-Natriuretic Peptide Total Protein 6.9 Albumin 3.7 Globulin 3.2 Albumin/Globulin Ratio 1.2 Ethyl Alcohol 36.1 03/16/23 03/16/23 03/16/23 15:50 16:18 18:33 WBC RBC Hgb Hct MCV MCH MCHC RDW Plt Count MPV Neut # (Auto) Lymph # (Auto) [place] # (Auto) Eos # (Auto) Baso # (Auto) Absolute Nucleated RBC Nucleated RBC % VBG pH 7.350 VBG pCO2 45.0 VBG pO2 33.0 VBG HCO3 24.3 VBG Total CO2 25.7 VBG O2 Saturation 60.2 VBG Base Excess -1.5 Sodium Potassium Chloride Carbon Dioxide Anion Gap BUN Creatinine Estimated GFR (MDRD) Glucose Calcium Phosphorus Magnesium Total Bilirubin AST ALT Alkaline Phosphatase Troponin I High Sens 73.5 H* B-Natriuretic Peptide 924 H Total Protein Albumin Globulin Albumin/Globulin Ratio Ethyl Alcohol - Rads (name of study) CT of the head without contrast demonstrates mild chronic microvascular ischemic changes and volume loss without acute trauma or finding. Relevant Findings:: Final report received, EMP independent interpretation of test Single view chest x-ray demonstrates no acute disease. He has chronic elevation of the right mid diaphragm. Relevant Findings:: Final report received, EMP independent interpretation of test PD Medical Decision Making - ED course ED course: 87-year-old gentleman presents with a few days worth of shortness of breath and a syncopal episode. He has no chest pain. He is feeling okay now with the exception of some nausea. Differential diagnosis is broad. His EKG has significantly changed in the last few years, but his troponin is about the same as recent prior measurements. He had serial troponin measurements in August 2021 with very similar numbers in the low 80s. His BNP is elevated over his usual. CMP, CBC are showing chronic macrocytic anemia and mild hypokalemia. He was feeling well here and wanted to be discharged. We will give him a shot of 40 mg of furosemide IV and supplement his potassium and then see how he is doing up on his feet. Despite the positive troponin I am not worried for acute ischemia given the lack of chest pain and similar to prior values. He wanted to go home, both the and I were skeptical. He received 40 mg of IV Lasix here and then we did a road test. Per the marine fisheries technician during the road test which was on his usual home oxygen he became very winded and sats went down as low as 55. Plan to give him a DuoNeb, repeat the troponin and consult telehealth after 7 PM shift change. Departure - Departure Disposition: [facility] DC/Xfer Clinical Impression: Syncope Condition: Serious
[2023-03-16 15:55] LABS: BASOPHILS % (AUTO) 0.3 %; EOSINOPHILS # (AUTO) 0.1 10^3/uL (0.0-0.7); EOSINOPHILS % (AUTO) 1.1 %; HGB - HEMOGLOBIN 12.8 g/dL (14.0-18.0); LYMPHOCYTES # (AUTO) 1.3 10^3/uL (1.5-3.5); LYMPHOCYTES % (AUTO) 12.7 %; MEAN CORPUSCULAR HEMOGLOBIN 32.2 pg (27.0-31.0); MEAN CORPUSCULAR VOLUME 100.5 fL (80.0-94.0); MEAN PLATELET VOLUME 9.6 fL (7.4-11.4); MONOCYTES # (AUTO) 0.8 10^3/uL (0.0-1.0); MONOCYTES % (AUTO) 8.1 %; NEUTROPHILS # (AUTO) 7.7 10^3/uL (1.5-6.6); NEUTROPHILS % (AUTO) 77.5 %; PLT - PLATELET COUNT 206 10^3/uL (130-450); RED BLOOD COUNT 3.98 10^6/uL (4.70-6.10); WHITE BLOOD COUNT 9.9 x10^3/uL (4.8-10.8)
[2023-03-16 16:16] LABS: ALBUMIN 3.7 g/dL (3.2-5.5); ALBUMIN/GLOBULIN RATIO 1.2 (1.0-2.2); BILIRUBIN,TOTAL 0.7 mg/dL (0.2-1.0); CALCIUM 8.7 mg/dL (8.5-10.3); CREATININE 0.8 mg/dL (0.6-1.2); ETOH - ETHANOL 36.1 mg/dL; PHOSPHORUS 3.6 mg/dL (2.5-4.6); POTASSIUM 3.3 mmol/L (3.5-5.0); TOTAL PROTEIN 6.9 g/dL (6.7-8.2)
--- NOTE | 2023-03-16 16:20 | CT Report ---
PROCEDURE: HEAD WO INDICATIONS: SYNCOPE VOMIT TECHNIQUE: Noncontrast 4.5 mm thick angled axial sections acquired from the foramen magnum to the vertex. For r adiation dose reduction, the following was used: automated exposure control, adjustment of mA and/or kV according to patient size. COMPARISON: None. FINDINGS: Image quality: Excellent. CSF spaces: Basal cisterns are patent. No extra-axial fluid collections. Ventricles are normal in size and shape. Brain: No midline shift. No acute intracranial hemorrhage or mass effect. There is moderate generali zed parenchymal volume loss with resulting ventricular and sulcal prominence. Mild hypodensities in t he subcortical and periventricular white matter most commonly seen in setting of chronic microvascula r ischemic changes. Skull and face: Calvarium and visualized facial bones are intact, without suspicious lesions. Sinuses: Visualized sinuses and mastoids are clear. IMPRESSION: 1.No acute intracranial abnormality. 2.Mild chronic microvascular ischemic changes and age-related parenchymal volume loss. Reviewed by: Bharat Gaston MD on 03/16/2023 4:19 PM PDT Approved by: Bharat Gaston MD on 03/16/2023 4:19 PM PDT Station ID: [id number]
--- NOTE | 2023-03-16 16:21 | XRAY Report ---
PROCEDURE: Chest 1 View X-Ray INDICATIONS: DYSPNEA TECHNIQUE: One view of the chest was acquired. COMPARISON: Chest radiographs 02/13/2023. FINDINGS: Surgical changes and devices: None. Lungs and pleura: Elevation of the right mid diaphragm is similar when compared to the prior exam. N o focal airspace consolidation is seen. No pleural effusion or pneumothorax. Mediastinum: Mediastinal contours appear normal. Heart size is stable. Bones and chest wall: No suspicious bony lesions. Overlying soft tissues appear unremarkable. IMPRESSION: No acute cardiopulmonary process. Reviewed by: Bharat Gaston MD on 03/16/2023 4:20 PM PDT Approved by: Bharat Gaston MD on 03/16/2023 4:20 PM PDT Station ID: [id number]
[2023-03-16 16:24] LABS: VBG BASE EXCESS -1.5 mmol/L (-2 - +2); VBG HCO3 24.3 mmol/L (23-28); VBG OXYGEN SATURATION 60.2 % (60-80); VBG PH 7.35 (7.31-7.41); VBG TOTAL CO2 25.7 mmol/L (24-29)
[2023-03-16] MEDS ORDERED: FUROSEMIDE 40 MG/4 ML VIAL IVP STA (16:45)
[2023-03-16] MEDS ORDERED: POTASSIUM BICARB 25 MEQ TABLET PO STA (16:46)
[2023-03-16] MEDS ORDERED: IPRATROPIUM/ALBUTEROL 3 ML NEB INH STA (18:20)
[2023-03-16] MEDS ORDERED: ZOLPIDEM 5 MG TABLET PO PRN (19:22)
[2023-03-16] MEDS ORDERED: SODIUM CHLORIDE FLUSH 0.9% 10 ML SYRINGE IVP PRN (19:22)
[2023-03-16] MEDS ORDERED: HYDROcod/ACETAM 5/325 MG TABLET PO PRN (19:22)
[2023-03-16] MEDS ORDERED: ONDANSETRON 4 MG/2 ML VIAL IVP PRN (19:22)
[2023-03-16] MEDS ORDERED: SPIRONOLACTONE 25 MG TABLET PO STA (19:26)
[2023-03-16] MEDS ORDERED: METOPROLOL SUCCINATE 25 MG TABLET PO STA (19:26)
[2023-03-16] MEDS ORDERED: lisinopriL 5 MG TABLET PO STA (19:27)
[2023-03-16 19:34] LABS: B. PARAPERTUSSIS- RESP PCR PAN NOT DETECTED; B. PERTUSSIS- RESP PCR PANEL NOT DETECTED; C. PNEUMONIAE- RESP PCR PANEL NOT DETECTED; CORONAVIRUS 229E-RESP PCR NOT DETECTED; CORONAVIRUS HKU1-RESP PCR NOT DETECTED; CORONAVIRUS NL63-RESP PCR NOT DETECTED; CORONAVIRUS OC43-RESP PCR NOT DETECTED; HUMAN METAPNEUMOVIRUS NOT DETECTED; INFLUENZA A- RESP PCR PANEL NOT DETECTED; INFLUENZA B - RESP PCR PANEL NOT DETECTED; M. PNEUMONIAE- RESP PCR PANEL NOT DETECTED; PARAINFLUENZA VIRUS 1 NOT DETECTED; PARAINFLUENZA VIRUS 2 NOT DETECTED; PARAINFLUENZA VIRUS 3 NOT DETECTED; PARAINFLUENZA VIRUS 4 NOT DETECTED; RHINOVIRUS/ENTEROVIRUS NOT DETECTED; RSV- RESP PCR PANEL NOT DETECTED; SARS-CoV-2 -RESP PCR PANEL NOT DETECTED
--- NOTE | 2023-03-16 19:39 | HISTORY & PHYSICAL EXAMINATION ---
Chief Complaint - Chief Complaint Chief Complaint: SOb and Near syncope History of Present Illness - Admitted From Admitted From:: Home - History Obtained From Records Reviewed: Yes History obtained from: Pateint and ER MD Exam Limitations: Pateint is hard of hearing - History of Present Illness HPI Comment/Other: 87-year-old gentleman with history of A-fib, not anticoagulated but he has a watchman due to prior GI bleeding, COPD. He presents with his . He has been more short of breath than normal for the last 3 days or so. Today he went out with family and they were having lunch at a local pub. He had 2 beers and then was having a lot of trouble getting in the car where he ended up syncopized in brief. When aroused he did vomit once. He has nausea but denies headache, chest pain, or abdominal pain. He admits to short of breath. As per ER MD 87-year-old gentleman presents with a few days worth of shortness of breath and a syncopal episode. He has no chest pain. He is feeling okay now with the exception of some nausea. Differential diagnosis is broad. His EKG has significantly changed in the last few years, but his troponin is about the same as recent prior measurements. He had serial troponin measurements in August 2021 with very similar numbers in the low 80s. His BNP is elevated over his usual. CMP, CBC are showing chronic macrocytic anemia and mild hypokalemia. He was feeling well here and wanted to be discharged. ER MD gave him gave him a shot of 40 mg of furosemide IV and supplement his potassium and then see how he is doing up on his feet. Despite the positive troponin ER MD not worried for acute ischemia given the lack of chest pain and similar to prior values. He wanted to go home, both the and ER MD were skeptical. He received 40 mg of IV Lasix here and then he did a road test. Per the firestopper technician during the road test which was on his usual home oxygen he became very winded and sats went down as low as 55. Plan to give him a DuoNeb, repeat the troponin and consult telehealth after 7 PM shift change. 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 He will be admitted for diuresis History - Past Medical History Cardiovascular: reports: Atrial fibrillation Respiratory: reports: COPD, Emphysema Neuro: reports: Peripheral neuropathy Endocrine/Autoimmune: reports: HyPOthyroidism GI: reports: None : reports: Nocturia, Frequency Psych: reports: Anxiety Musculoskeletal: reports: Osteoarthritis Derm: reports: Other MRSA Hx?: No - Past Surgical History General: reports: Colonoscopy Ortho: reports: Arthroscopic surgery HEENT: reports: Cataracts - Family & Social History Family History: Mother: , COPD/Emphysema, Father: , Cancer Family History Comment/Other: His parents had hx of heavy cigarette smoking. His mother from COPD, his father from cancer. He has three children. Living Situation: With spouse/s.o. Social History Notes: He reports a 30yr history of smoking. He denies alcohol and drug issue. He lives with his in [facility] Patient has POLST: No POLST Status: Full Code (pt report he request CPR but no incubation) Meds/Allgy - Home Medications Home Medications: Ambulatory Orders Medication Instructions Recorded Confirmed Levothyroxine Sodium [Tirosint] 125 mcg PO DAILY 01/29/13 08/23/21 Cyanocobalamin (Vitamin B-12) 2,500 mcg SL DAILY 02/28/13 08/23/21 [Vitamin B-12] Arformoterol Tartrate [Brovana] 15 mcg NEB DAILY 08/09/19 08/23/21 Budesonide 1 inh INH BID 08/09/19 08/23/21 Ipratropium/Albuterol [Duoneb] 3 ml INH DAILY 08/09/19 08/23/21 clonazePAM [Clonazepam] 0.5 - 1 mg PO DAILY PRN 08/09/19 08/23/21 Potassium Chloride [K-Dur] 20 meq PO DAILY 08/10/19 08/23/21 Albuterol Sulfate [Proair Hfa 1 puffs PO PRN PRN 02/15/21 08/23/21 Inhaler] Cholecalciferol (Vitamin D3) 50 mcg PO DAILY 02/15/21 08/23/21 [Vitamin D3] Sertraline [Zoloft] 50 mg PO DAILY 02/18/21 08/23/21 Digoxin [Lanoxin] 125 mcg PO DAILY #30 tablet 02/19/21 08/23/21 Furosemide [Lasix] 20 mg PO BIDDIURETIC #60 tablet 02/19/21 08/23/21 Metoprolol Tartrate [Lopressor] 50 mg PO BID #60 tablet 02/19/21 08/23/21 Rivaroxaban [Xarelto] 20 mg PO QDDINNER #30 tablet 02/21/21 08/23/21 Ferrous Sulfate 325 mg PO BID 30 Days #60 tab 08/26/21 Pantoprazole [Protonix] 40 mg PO BID 30 Days #60 tablet 08/26/21 - Allergies Allergies/Adverse Reactions: Allergies Allergy/AdvReac Type Severity Reaction Status Date / Time No Known Drug Allergies Allergy Verified 03/16/23 15:46 Review of Systems - Constitutional Constitutional: reports: Poor appetite - Cardiovascular Cariovascular: reports: Irregular heart rate, Lightheadedness, Orthopnea - Respiratory Respiratory: reports: Wheezing, SOB with exertion - Musculoskeletal Musculoskeletal: reports: Other (B/l lower exst edema +ve) Prior Level of Functionality: Walks independently Exam - Vital Signs Vital Signs: Vital Signs x48h Temp Pulse Resp BP Pulse Ox O2 Flow Rate 03/16/23 18:42 69 20 03/16/23 18:31 64 114/69 92 2 03/16/23 17:00 56 L 16 106/68 94 4 03/16/23 16:15 60 16 111/64 93 4 03/16/23 15:40 36.0 C L 62 16 111/64 93 - Physical Exam General Appearance: positive: No acute distress Eyes Bilateral: positive: PERRL, No scleral icterus Neck: positive: Nml inspection Cardiovascular: positive: Irregularly irregular Abdomen: positive: Non-tender, No organomegaly Extremities: positive: Pedal edema Neurologic/Psychiatric: positive: Oriented x3, CN's nml (2-12) Sepsis Event Note (H) - Evaluation Current Stage of Sepsis: Ruled out Conclusion/Plan - Problem List (1) Atrial fibrillation with RVR Conclusion/Plan: Heart rate uncontrolled when he came to ER when seen by me on telemetry heart rate in 60's with rate controlled A fibn Not on AC due to gi bleed Has Watchman device no acute cardiac complaints Acute on chronic systolic heart failure (2) COPD (chronic obstructive pulmonary disease) Conclusion/Plan: Hx of tobacco use in past, would give duoenbs q 6 hrs prn Keep O2 sat > 91% (3) Elevated troponin Conclusion/Plan: No chest pain, downtrending, elevated from decompensated heart failure If any chest pain repeat EKG and troponin for now stable (4) Pulmonary edema Conclusion/Plan: Likely from A fib with RVR Continue IV diuretics Started on Bumex in am daily weight Strict I and out Check echocardiogram Started on Aldactone, Toprol XL and lisinopril Need to be optimzed in terms of volume and optimize meds for heart failure Hypokalemia KCL will be replaced Qualifiers: Chronicity: acute Qualified Code(s): J81.0 - Acute pulmonary edema (5) Hypothyroidism Conclusion/Plan: Continue home dose of Synthroid - Lab Results Fish Bones: 03/16/23 15:50 03/16/23 15:50 - Diagnostic Imaging Results Diagnostic Imaging Results: positive: Final report reviewed - EKG Results EKG Interpreted Independently: No EKG Comparison: Unchanged from prior EKG
[2023-03-17] MEDS: PANTOPRAZOLE 40 MG TABLET PO SCH ×3 (02:10→20:35)
[2023-03-17] MEDS ORDERED: SODIUM BICARBONATE 100 MEQ in DEXTROSE 5% 1,000 ML IV SCH (08:00)
[2023-03-17] MEDS ORDERED: iohexoL-300 100 ML VIAL ONE (08:06)
[2023-03-17 08:46] LABS: CALCIUM 8.7 mg/dL (8.5-10.3); CREATININE 0.8 mg/dL (0.6-1.2); POTASSIUM 3.7 mmol/L (3.5-5.0)
[2023-03-17] MEDS ORDERED: iohexoL-300 100 ML VIAL IVP ONE (09:11)
[2023-03-17] MEDS: IPRATROPIUM/ALBUTEROL 3 ML NEB INH SCH (09:30)
[2023-03-17] MEDS: SODIUM CHLORIDE FLUSH 0.9% 10 ML SYRINGE IVP SCH ×3 (10:22→17:12)
[2023-03-17] MEDS: LEVOTHYROXINE 125 MCG TABLET PO SCH (10:25)
[2023-03-17] MEDS: CYANOCOBALAMIN 500 MCG TABLET PO SCH (10:25)
[2023-03-17] MEDS: DIGOXIN 125 MCG TABLET PO SCH ×2 (10:25→15:03)
[2023-03-17] MEDS: SERTRALINE 50 MG TABLET PO SCH (10:26)
[2023-03-17] MEDS: BUMETANIDE 1 MG/4 ML VIAL IVP SCH (10:26)
--- NOTE | 2023-03-17 10:44 | PHARMACY PROGRESS NOTE ---
- Best Possible Medication History Admit Date and Time: 03/16/231921 Processed by: Pharmacy Medication History completed: Yes Patient Interview: Pt unable to participate Secondary Source(s): Written medication list, Pharmacy records, Insurance rec ords As the person ultimately responsible for medication therapy, providers are able to order a medication from an existing home medication list in [facility] via the "Reconcile Routine" prior to Confirmation of that medication by customer support analyst. Such practice is discouraged except when the physician, in their clinical judgment, deems that a medical need exists for a medication without regard to previous use.
[2023-03-17] MEDS ORDERED: CHOLECALCIFEROL 25 MCG TABLET PO SCH (11:00)
--- NOTE | 2023-03-17 13:55 | CT Report ---
PROCEDURE: ANGIO CHEST W/WO INDICATIONS: sob x 3 days w syncope and hypoxia to 55% 02 sat CONTRAST: 80ml omni 300 TECHNIQUE: After the administration of intravenous contrast, 2 mm axial images were acquired from the pulmonary apices to the posterior costophrenic angles during the arterial phase. In addition, 1 mm lung kernel and 5 mm soft tissue kernel reconstructions were performed. 3-dimensional coronal oblique maximum int ensity projection (MIP) reformats, 8 mm axial MIP, and 5 mm coronal and sagittal MPR reformats were t hen performed through the thorax. For radiation dose reduction, the following was used: automated exp osure control, adjustment of mA and/or kV according to patient size. COMPARISON: FINDINGS: Image quality: Excellent. Large vessels: There is volume loss in the right lung base, and there is some patient motion artifact . Findings are suspicious for subsegmental clot in basilar pulmonary arterial branches. Lungs and pleura: Patchy right basilar atelectasis. Minimal right pleural fluid. Elevation of right h emidiaphragm. No pleural effusions. No pneumothorax. No suspicious pulmonary nodules which require f ollow up. Mediastinum: Mild cardiomegaly. Left atrial appendage exclusion device. Moderate coronary artery calc ifications. No pericardial effusion. No large vessel abnormality. There are borderline mediastinal ly mph nodes located in the prevascular region, the largest of which measures 1.5 cm. These are nonspeci fic, and may potentially be reactive. Chest wall and lower neck: Thyroid is unremarkable. No axillary or supraclavicular adenopathy by size . Bones: No aggressive osseous abnormality. Upper Abdomen: Moderate hiatal hernia. Multiple calcified gallstones in the gallbladder. IMPRESSION: 1. Findings are suspicious for small subsegmental right basilar pulmonary arterial branch subsegmenta l pulmonary emboli. 2. Elevation of right hemidiaphragm, right basilar atelectasis, minimal right pleural fluid. 3. Cholelithiasis. 4. Moderate hiatal hernia. Above discussed with Dr Janny Childress at the time of dictation. Reviewed by: Dennis Zapata MD on 03/17/2023 1:54 PM PDT Approved by: Dennis Zapata MD on 03/17/2023 1:54 PM PDT Station ID: [id number]
--- NOTE | 2023-03-17 16:33 | Ultrasound Report ---
PROCEDURE: Duplex Ext Veins Bilateral INDICATIONS: Pulmonary embolus. Check for possible source. TECHNIQUE: Real-time imaging, as well as color and pulse Doppler interrogation, were performed of the deep veins of both legs from the inguinal ligament to the popliteal fossa. COMPARISON: None FINDINGS: The deep veins are normally compressible, and free of intraluminal thrombus. Color and pu lse Doppler demonstrate normal phasic intravascular flow. There is normal augmentation response to d istal compression maneuver. IMPRESSION: Negative duplex bilateral lower extremity ultrasound for DVT. Reviewed by: Dennis Zapata MD on 03/17/2023 4:31 PM PDT Approved by: Dennis Zapata MD on 03/17/2023 4:31 PM PDT Station ID: [id number]
[2023-03-17] MEDS: FERROUS SULFATE 325 MG TABLET PO SCH (17:12)
--- NOTE | 2023-03-17 18:43 | PROVIDER PROGRESS NOTE ---
Progress Note March 17, 2023 6:30 PM I saw him twice in the morning, once in the afternoon. In the morning he was asleep and I woke him up. Little confused. Groggy, hoarse voice. Main complaint was shortness of breath. Was still wheezing and was on his 2 L nasal cannula. In looking at his work-up, chest x-ray did not seem impressive with regards to CHF. I heard wheezing on lung exam with minimal crackles. He is a relatively sedentary elderly gentleman and I did a CT pulmonary angiogram looking for a PE to complete his hypoxia work-up. The CT angiogram has findings suspicious for a small segmental right basilar pulmonary arterial branch subsegmental pulmonary emboli. But his right hemidiaphragm is elevated so it was difficult to see. He has cholelithiasis, a moderately large hiatal hernia. This gentleman cannot be anticoagulated. So I would look for a DVT and he has negative duplex bilateral lower extremity ultrasound. By this afternoon, his exam is improved even from this morning. He is not wheezing. Has a slight gurgling cough but that clears quickly. He is sitting up, watching the game on TV, slightly deaf and slightly impaired vision. Still on 2 L nasal cannula at 98% saturation. Active Medications Acetaminophen (Acetaminophen 325 Mg Tablet) 650 mg PO Q4HR PRN PRN Reason: Pain 1 to 4, or Fever Hydrocodone Bitart/Acetaminophen (Hydrocod/Acetam 5/325 Mg Tablet) 1 tab PO Q4HR PRN PRN Reason: Pain 5 to 7 Albuterol/Ipratropium (Ipratropium/Albuterol 3 Ml Neb) 3 ml INH DAILY [facility] Last Admin: 03/17/23 09:30 Dose: 3 ml Bumetanide (Bumetanide 1 Mg/4 Ml Vial) 2 mg IVP DAILY [facility] Last Admin: 03/17/23 10:26 Dose: 2 mg Cholecalciferol (Cholecalciferol 25 Mcg Tablet) 50 mcg PO BID [facility] Cyanocobalamin (Cyanocobalamin 500 Mcg Tablet) 500 mcg PO DAILY [facility] Last Admin: 03/17/23 10:25 Dose: 500 mcg Digoxin (Digoxin 125 Mcg Tablet) 125 mcg PO DAILY [facility] Last Admin: 03/17/23 15:03 Dose: Not Given Ferrous Sulfate (Ferrous Sulfate 325 Mg Tablet) 325 mg PO BIDWM [facility] Last Admin: 03/17/23 17:12 Dose: 325 mg Sodium Bicarbonate 100 meq/ (Dextrose) 1,100 mls @ 100 mls/hr IV .Q11H [facility] Stop: 03/17/23 18:59 Last Admin: 03/17/23 09:00 Dose: 100 mls/hr Levothyroxine Sodium (Levothyroxine 125 Mcg Tablet) 125 mcg PO QDAC [facility] Last Admin: 03/17/23 10:25 Dose: 125 mcg Metoprolol Tartrate (Metoprolol Tartrate 50 Mg Tablet) 50 mg PO BID [facility] Ondansetron HCl (Ondansetron 4 Mg/2 Ml Vial) 4 mg IVP Q6HR PRN PRN Reason: Nausea / Vomiting Pantoprazole Sodium (Pantoprazole 40 Mg Tablet) 40 mg PO BID [facility] Last Admin: 03/17/23 10:25 Dose: 40 mg Potassium Chloride (Potassium Chloride 10 Meq Capsule) 10 meq PO DAILYWM [facility] Sertraline HCl (Sertraline 50 Mg Tablet) 50 mg PO DAILY [facility] Last Admin: 03/17/23 10:26 Dose: 50 mg Sodium Chloride (Sodium Chloride Flush 0.9% 10 Ml Syringe) 10 ml IVP PRN PRN PRN Reason: NEEDED PER PROVIDER ORDERS Sodium Chloride (Sodium Chloride Flush 0.9% 10 Ml Syringe) 10 ml IVP 0100,0900,1700 [facility] Last Admin: 03/17/23 17:12 Dose: Not Given Zolpidem Tartrate (Zolpidem 5 Mg Tablet) 5 mg PO QPM PRN PRN Reason: Insomnia Levothyroxine Sodium [Tirosint] 125 mcg PO QDAC 01/29/13 Arformoterol Tartrate [Brovana] 15 mcg NEB BID 08/09/19 Budesonide 0.5 mg INH BID 08/09/19 Ipratropium/Albuterol [Duoneb] 3 ml INH DAILY 08/09/19 clonazePAM [Clonazepam] 1 mg PO ONCE PRN 08/09/19 Albuterol Sulfate [Proair Hfa Inhaler] 1 puffs PO PRN PRN 02/15/21 Cholecalciferol (Vitamin D3) [Vitamin D3] 50 mcg PO BID 02/15/21 Sertraline [Zoloft] 100 mg PO DAILY 02/18/21 Acetaminophen [Tylenol] 1,000 mg PO BID 03/17/23 Aspirin Chewable [[place] Benny Aspirin] 81 mg PO DAILY 03/17/23 Cyanocobalamin (Vitamin B-12) [Vitamin B-12 (1000 mcg sublingual)] 1,000 mcg PO MOFR 03/17/23 Furosemide [Lasix] 40 - 60 mg PO DAILY 03/17/23 Pantoprazole Sodium [Protonix] 20 mg PO DAILY 03/17/23 Potassium Chloride 10 meq PO DAILY 03/17/23 Vitals: Temperature 36.4, heart rate 69, blood pressure 97/61, respirations 24, 98% saturated on 2 L. 6 foot 2 inch tall male, 103 kg Hoarse voice, slightly runny nose but no coryza. He says he does this all the time. Shotty neck adenopathy but it is supple Regular rate and rhythm with a systolic ejection murmur Abdomen is soft, nontender, normal bowel sounds Extremities have VITALIY hose, and this morning he had close to 3+ edema, and this afternoon he is about 1+ edema. Neurologic: Moderately deaf, right eye drooping and he says he always does that. He looks like he is winking at me. But face is not drooping. Hoarse voice. Can follow two-step commands in spite of deafness. Requires an assist to go from supine to sitting, sitting to standing and a stand pivot transfer. He is a little off balance. He is not going through withdrawal. He has no sweats, tachycardia or agitation. Vitals: BMP is normal. Troponin yesterday was 81 and the second 1 was 73.5 BNP was 924 yesterday, and 774 today. So it is going down. This correlates with my physical exam finding of less edema, and improved breathing this afternoon CBC done yesterday. Macrocytic anemia with an MCV of 100, hemoglobin 12.8. B12 level is normal. Ethyl alcohol level was 36 yesterday. Assessment/plan 1. Acute on chronic diastolic heart failure. Admission providers are attributing this to A-fib with RVR as the cause of the failure. He has had 3 echocardiograms in our system. He has severe aortic sclerosis but no stenosis. He has a normal ejection fraction. Mildly elevated pulmonary pressures. But my suspicion was that his hypoxia was far more severe than would warrant with the mild congestive heart failure seen on exam. At this time I will continue to diurese, and make sure he gets his metoprolol, Lanoxin. Diuresis is with Bumex 2 mg daily. 2. Possible pulmonary emboli as a cause of hypoxia. He cannot be anticoagulated. He is already had a Watchman procedure for this. DVT is not seen on legs. We will have to discuss with his and family if he is a candidate for a umbrella. 3. Atrial fibrillation with rapid ventricular response. Throughout the day his heart rate has been as low as 59. But usually staying in the 60s. Highest has been is in the 70s. I believe he is well rate controlled. Medications are digoxin and metoprolol. This morning his pulse rate was 57 and was changed from metoprolol XL to metoprolol tartrate 50 twice daily. Holding parameters for systolic less than 110 and a pulse less than 60. As already stated he is not a candidate for anticoagulation. Has already had the Watchman procedure 4. COPD without exacerbation. Resume his LABA, inhaled steroid, and AYAAN 5. Elevated troponin. Flat levels. I suspect demand ischemia from his congestive heart failure and not an NSTEMI. 6. Hypokalemia. He was 3.3 in the ER yesterday. Given supplementation and is 3.7 this morning. Other than his usual potassium on a daily basis no new supplementation.
[2023-03-17] MEDS: ACETAMINOPHEN 325 MG TABLET PO PRN (20:35)
[2023-03-17] MEDS: CHOLECALCIFEROL 25 MCG TABLET PO SCH (20:35)
[2023-03-17] MEDS: METOPROLOL TARTRATE 50 MG TABLET PO SCH (20:36)
[2023-03-17] MEDS ORDERED: METOPROLOL TARTRATE 50 MG TABLET PO SCH (21:00)
[2023-03-18] MEDS: SODIUM CHLORIDE FLUSH 0.9% 10 ML SYRINGE IVP SCH ×4 (00:06→23:47)
[2023-03-18 05:36] LABS: CALCIUM 8.6 mg/dL (8.5-10.3); CREATININE 0.7 mg/dL (0.6-1.2); POTASSIUM 3.4 mmol/L (3.5-5.0)
[2023-03-18] MEDS: LEVOTHYROXINE 125 MCG TABLET PO SCH (06:16)
[2023-03-18] MEDS: BUDESONIDE 0.5 MG/2 ML NEB INH SCH ×2 (08:19→21:00)
[2023-03-18] MEDS: IPRATROPIUM/ALBUTEROL 3 ML NEB INH SCH (08:19)
[2023-03-18] MEDS: FORMOTEROL FUMARATE NEB 20 MCG/2 ML INH SCH ×2 (08:19→21:00)
[2023-03-18] MEDS: CHOLECALCIFEROL 25 MCG TABLET PO SCH ×2 (08:49→20:46)
[2023-03-18] MEDS: SERTRALINE 50 MG TABLET PO SCH (08:49)
[2023-03-18] MEDS: FERROUS SULFATE 325 MG TABLET PO SCH ×2 (08:49→17:26)
[2023-03-18] MEDS: POTASSIUM CHLORIDE 10 MEQ CAPSULE PO SCH (08:49)
[2023-03-18] MEDS: DIGOXIN 125 MCG TABLET PO SCH (08:49)
[2023-03-18] MEDS: PANTOPRAZOLE 40 MG TABLET PO SCH ×2 (08:49→20:47)
[2023-03-18] MEDS: CYANOCOBALAMIN 500 MCG TABLET PO SCH (08:49)
[2023-03-18] MEDS: BUMETANIDE 1 MG/4 ML VIAL IVP SCH (08:50)
[2023-03-18] MEDS: METOPROLOL TARTRATE 50 MG TABLET PO SCH ×2 (08:50→20:46)
[2023-03-18] MEDS ORDERED: PANTOPRAZOLE SODIUM 20 MG PO SCH (09:00)
--- NOTE | 2023-03-18 15:17 | PROVIDER PROGRESS NOTE ---
Progress Note March 18, 2023 3:12 PM Over an hour conversation with his and he. Please see advance care planning conversation under separate dictation. His confusion has cleared. He is profoundly deaf and he left his hearing aids at home. He did so deliberately because he does not want to lose them. They are over $6000. He knows where he is, why he is here. He knows that it is Monday in early March not the actual date of March 18. He tells me that I have made him urinate too much. The [employer] was not working at home. But what ever I am giving him is making him "pee like a race horse". I explained to he and his about the CT pulmonary angiogram, and the negative venous Doppler study. Shortness of breath has improved tremendously. He is just very weak. To get up to go to the bathroom and get back in bed wipes him out. They live in a trailer. He knows if he can at least get up to walk to the toilet and back he will be fine. He uses a walker at home. Vitals: Temperature 36.6. Heart rate 84. Blood pressure 121/75. Respirations 18. He is 97% saturated on 2 L nasal cannula and this is baseline for him. An alert, oriented elderly gentleman. Voice is still hoarse but that is a baseline for him he tells me. No tachypnea as he and his and I speak. Tells me stories of his childhood. Spontaneously laughs at some of the jokes that his tells. No shortness of breath. Neck is supple no JVD Crackles at the left lung base but otherwise clear. No tachypnea or tachycardia or use of accessory muscles sitting in bed. I have not tested in by walking him in the room. Irregular rate and rhythm. Systolic ejection murmur. Abdomen is soft, nontender. Last bowel movement was yesterday. Normal bowel sounds. Extremities have SCDs. He loves them. Wonders if he can get some for home. Trace edema around his ankles. Between yesterday morning and today there has been a substantial reduction in leg edema. Neurologically this person is alert to person and place and generally to time and date. Lucid historian at this point in time. Deaf. Moving all extremities without any deficit. Labs: Sodium 138, potassium 3.4. BUN 17, creatinine 0.7. BNP was 774 yesterday, 672 today. Vitamin B12 was normal at 701. Active Medications Acetaminophen (Acetaminophen 325 Mg Tablet) 650 mg PO Q4HR PRN PRN Reason: Pain 1 to 4, or Fever Last Admin: 03/17/23 20:35 Dose: 650 mg Hydrocodone Bitart/Acetaminophen (Hydrocod/Acetam 5/325 Mg Tablet) 1 tab PO Q4HR PRN PRN Reason: Pain 5 to 7 Albuterol (Albuterol Neb 2.5 Mg/3 Ml) 2.5 mg INH RTQ4H PRN PRN Reason: Wheezing Albuterol/Ipratropium (Ipratropium/Albuterol 3 Ml Neb) 3 ml INH DAILY [facility] Last Admin: 03/18/23 08:19 Dose: 3 ml Budesonide (Budesonide 0.5 Mg/2 Ml Neb) 0.5 mg INH RTBID [facility] Last Admin: 03/18/23 08:19 Dose: 0.5 mg Bumetanide (Bumetanide 1 Mg/4 Ml Vial) 2 mg IVP DAILY [facility] Last Admin: 03/18/23 08:50 Dose: 2 mg Cholecalciferol (Cholecalciferol 25 Mcg Tablet) 50 mcg PO BID [facility] Last Admin: 03/18/23 08:49 Dose: 50 mcg Cyanocobalamin (Cyanocobalamin 500 Mcg Tablet) 500 mcg PO DAILY [facility] Last Admin: 03/18/23 08:49 Dose: 500 mcg Digoxin (Digoxin 125 Mcg Tablet) 125 mcg PO DAILY [facility] Last Admin: 03/18/23 08:49 Dose: 125 mcg Ferrous Sulfate (Ferrous Sulfate 325 Mg Tablet) 325 mg PO BIDWM [facility] Last Admin: 03/18/23 08:49 Dose: 325 mg Formoterol Fumarate (Formoterol Fumarate Neb 20 Mcg/2 Ml) 20 mcg INH RTBID [facility] Last Admin: 03/18/23 08:19 Dose: 20 mcg Levothyroxine Sodium (Levothyroxine 125 Mcg Tablet) 125 mcg PO QDAC [facility] Last Admin: 03/18/23 06:16 Dose: 125 mcg Metoprolol Tartrate (Metoprolol Tartrate 50 Mg Tablet) 50 mg PO BID [facility] Last Admin: 03/18/23 08:50 Dose: 50 mg Ondansetron HCl (Ondansetron 4 Mg/2 Ml Vial) 4 mg IVP Q6HR PRN PRN Reason: Nausea / Vomiting Pantoprazole Sodium (Pantoprazole 40 Mg Tablet) 40 mg PO BID [facility] Last Admin: 03/18/23 08:49 Dose: 40 mg Potassium Chloride (Potassium Chloride 10 Meq Capsule) 10 meq PO DAILYWM [facility] Last Admin: 03/18/23 08:49 Dose: 10 meq Sertraline HCl (Sertraline 50 Mg Tablet) 50 mg PO DAILY [facility] Last Admin: 03/18/23 08:49 Dose: 50 mg Sodium Chloride (Sodium Chloride Flush 0.9% 10 Ml Syringe) 10 ml IVP PRN PRN PRN Reason: NEEDED PER PROVIDER ORDERS Sodium Chloride (Sodium Chloride Flush 0.9% 10 Ml Syringe) 10 ml IVP 0100,0900,1700 [facility] Last Admin: 03/18/23 08:50 Dose: 10 ml Zolpidem Tartrate (Zolpidem 5 Mg Tablet) 5 mg PO QPM PRN PRN Reason: Insomnia Levothyroxine Sodium [Tirosint] 125 mcg PO QDAC 01/29/13 Arformoterol Tartrate [Brovana] 15 mcg NEB BID 08/09/19 Budesonide 0.5 mg INH BID 08/09/19 Ipratropium/Albuterol [Duoneb] 3 ml INH DAILY 08/09/19 clonazePAM [Clonazepam] 1 mg PO ONCE PRN 08/09/19 Albuterol Sulfate [Proair Hfa Inhaler] 1 puffs PO PRN PRN 02/15/21 Cholecalciferol (Vitamin D3) [Vitamin D3] 50 mcg PO BID 02/15/21 Sertraline [Zoloft] 100 mg PO DAILY 02/18/21 Acetaminophen [Tylenol] 1,000 mg PO BID 03/17/23 Aspirin Chewable [[place]enny Aspirin] 81 mg PO DAILY 03/17/23 Cyanocobalamin (Vitamin B-12) [Vitamin B-12 (1000 mcg sublingual)] 1,000 mcg PO MOFR 03/17/23 Furosemide [Lasix] 40 - 60 mg PO DAILY 03/17/23 Pantoprazole Sodium [Protonix] 20 mg PO DAILY 03/17/23 Potassium Chloride 10 meq PO DAILY 03/17/23 Assessment/plan 1. Acute on chronic diastolic heart failure. Admission providers are attributing this to A-fib with RVR as the cause of the failure. He has had 3 echocardiograms in our system. He has severe aortic sclerosis but no stenosis. He has a normal ejection fraction. Mildly elevated pulmonary pressures. I found him to have a possible small PE. Or compression of the right lower lobe due to elevated hemidiaphragm. Radiology said it was difficult to call because of the anatomy and the compression. I did a venous Doppler and there were no DVTs. I explained all of this to the . He is also exclaiming that he cannot believe how much she is urinating on the Bumex. is wondering if he could be switched to that at discharge. Plan: Urine output was 2275 yesterday, and 1800 as of today. He was 104.3 kg yesterday and 103 kg today. Exam is much improved. And with a drop in weight, excellent diuresis, I will switch him back to oral Lasix. I told her that were going to try the Lasix orally for now. Hopefully discharge in by March 21. If the Lasix results and less urine output in a bounce back and his weight, I can put him on oral Bumex. 2. Possible pulmonary emboli as a cause of hypoxia. He cannot be anticoagulated. He is already had a Watchman procedure for this. DVT is not seen on legs. explains that he was taking too much ibuprofen at the same time he was taking Xarelto. This resulted in a GI bleed. After discussing this with cardiology, Dr. George, and pulmonology, Dr. Spann, everyone decided it would be in his best interest to get the Watchman procedure. Now, in face with a possible PE, I am holding off on starting him on any anticoagulation. I based my decision on the conversation with radiology saying that they are hedging their call on this because of the anatomy seen on CT pulmonary angiogram and the venous Dopplers are negative. But I will let his specialist know because they may decide a different decision then me. 3. Atrial fibrillation with rapid ventricular response. He was consistently bradycardic, below 60, and I switched his metoprolol XL to metoprolol twice daily. He is also on his digoxin. Pulse is 69, 70, 63. Blood pressure is occasionally low at 108/58. I am sure he is orthostatic because I diuresed him so aggressively. Tomorrow morning I plan on changing him to p.o. Lasix. Continue the twice daily metoprolol and daily digoxin. At discharge I will have to consider resuming his usual beta-yanique. 4. Chronic respiratory failure with hypoxemia/COPD without exacerbation. I have resumed his Brovana, budesonide, changed him to DuoNeb. He says this is working well for him. He had some rhonchi that needed clearing yesterday. On today's exam he is clear or rhonchi or wheezing. He has a prolonged exhalation phase but no distress. As such those medicines will be continued and he will resume his usual home meds at discharge. He will also be sent home on his baseline 2 L per nasal cannula oxygen. 5. Elevated troponin. Flat levels. I suspect demand ischemia from his congestive heart failure and not an NSTEMI. 6. Hypokalemia. Hypokalemic on March 16. Supplemented and normal March 17. Back to 3.4 today and I will supplement him orally and recheck tomorrow.
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
[2023-03-18] MEDS ORDERED: POTASSIUM CHLORIDE 20 MEQ TABLET PO ONE (15:43)
[2023-03-19 05:56] LABS: BASOPHILS % (AUTO) 0.3 %; EOSINOPHILS # (AUTO) 0.2 10^3/uL (0.0-0.7); HCT - HEMATOCRIT 36.4 % (42.0-52.0); HGB - HEMOGLOBIN 11.8 g/dL (14.0-18.0); LYMPHOCYTES # (AUTO) 1.5 10^3/uL (1.5-3.5); LYMPHOCYTES % (AUTO) 19.1 %; MEAN CORPUSCULAR HEMOGLOBIN 32.5 pg (27.0-31.0); MEAN CORPUSCULAR HGB CONC 32.4 g/dL (32.0-36.0); MEAN CORPUSCULAR VOLUME 100.3 fL (80.0-94.0); MEAN PLATELET VOLUME 10.3 fL (7.4-11.4); MONOCYTES # (AUTO) 0.7 10^3/uL (0.0-1.0); MONOCYTES % (AUTO) 9.5 %; NEUTROPHILS # (AUTO) 5.3 10^3/uL (1.5-6.6); PLT - PLATELET COUNT 176 10^3/uL (130-450); RED BLOOD COUNT 3.63 10^6/uL (4.70-6.10); RED CELL DISTRIBUTION WIDTH 12.5 % (12.0-15.0); WHITE BLOOD COUNT 7.7 x10^3/uL (4.8-10.8)
[2023-03-19 06:07] LABS: CALCIUM 8.7 mg/dL (8.5-10.3); CREATININE 0.7 mg/dL (0.6-1.2); POTASSIUM 3.9 mmol/L (3.5-5.0)
[2023-03-19 06:11] LABS: DIGOXIN 0.5 ng/mL
[2023-03-19] MEDS: FUROSEMIDE 40 MG TABLET PO SCH ×2 (06:28→14:14)
[2023-03-19] MEDS: LEVOTHYROXINE 125 MCG TABLET PO SCH (06:28)
[2023-03-19] MEDS: BUDESONIDE 0.5 MG/2 ML NEB INH SCH ×2 (07:30→19:40)
[2023-03-19] MEDS: IPRATROPIUM/ALBUTEROL 3 ML NEB INH SCH (07:30)
[2023-03-19] MEDS: FORMOTEROL FUMARATE NEB 20 MCG/2 ML INH SCH ×2 (07:30→19:40)
[2023-03-19] MEDS: PANTOPRAZOLE 40 MG TABLET PO SCH ×2 (09:04→20:48)
[2023-03-19] MEDS: POTASSIUM CHLORIDE 10 MEQ CAPSULE PO SCH (09:04)
[2023-03-19] MEDS: FERROUS SULFATE 325 MG TABLET PO SCH ×2 (09:05→17:14)
[2023-03-19] MEDS: SERTRALINE 50 MG TABLET PO SCH (09:05)
[2023-03-19] MEDS: CYANOCOBALAMIN 500 MCG TABLET PO SCH (09:05)
[2023-03-19] MEDS: CHOLECALCIFEROL 25 MCG TABLET PO SCH ×2 (09:07→20:47)
[2023-03-19] MEDS: SODIUM CHLORIDE FLUSH 0.9% 10 ML SYRINGE IVP SCH ×2 (09:08→15:37)
[2023-03-19] MEDS: DIGOXIN 125 MCG TABLET PO SCH (09:12)
[2023-03-19] MEDS: METOPROLOL TARTRATE 50 MG TABLET PO SCH ×2 (09:12→20:48)
[2023-03-19] MEDS: ALBUTEROL NEB 2.5 MG/3 ML INH PRN ×2 (17:06→19:40)
--- NOTE | 2023-03-19 19:25 | PROVIDER PROGRESS NOTE ---
Progress Note March 19, 2023 10 AM. He is sitting up in chair. I told him he looks fabulous. He is happy to hear that I think I am going to discharge him tomorrow. No events between yesterday and today. He denies any pain. Denies any coughing, chest congestion. Vitals: Temperature 36.7, heart rate 84, repeat heart rate is 56. Blood pressure is down to 100/60 at 3:45 in the afternoon. 720 this morning he was 115/79. He is on his baseline 2 L nasal cannula is 95% saturated And alert gentleman. More alert today than I have ever seen him. He smiles and says "it is because I had a bath". Neck is supple. Lungs have diminished breath sounds diffusely but there is no respiratory distress, and they are clear. Irregular rate and rhythm. Systolic ejection murmur. Benign abdomen. No edema on his feet. Lab: BMP is normal. BNP is 720 and stable. CBC is stable with a white cell count of 7.7 hemoglobin 11.8. Assessment/plan 1. Acute on chronic diastolic heart failure. Admission providers are attributing this to A-fib with RVR as the cause of the failure. He has had 3 echocardiograms in our system. He has severe aortic sclerosis but no stenosis. He has a normal ejection fraction. Mildly elevated pulmonary pressures. I found him to have a possible small PE. Or compression of the right lower lobe due to elevated hemidiaphragm. Radiology said it was difficult to call because of the anatomy and the compression. I did a venous Doppler and there were no DVTs. I explained all of this to the . He is also exclaiming that he cannot believe how much he is urinating on the Bumex. is wondering if he could be switched to that at discharge. Plan: I switched him to oral Lasix yesterday. Weight has stayed stable with this. There is no bump in kilograms. Urine output was 2400 cc yesterday. As of this dictation it is 1775. Discharge is March 20. I do not know if I am going to put him on Bumex as his request. But I am getting give her that name so she knows to ask the doctor for it if Lasix does not work for him. 2. Possible pulmonary emboli as a cause of hypoxia. He cannot be anticoagulated. He is already had a Watchman procedure for this. DVT is not seen on legs. explains that he was taking too much ibuprofen at the same time he was taking Xarelto. This resulted in a GI bleed. After discussing this with cardiology, Dr. George, and pulmonology, Dr. Spann, everyone decided it would be in his best interest to get the Watchman procedure. Now, in face with a possible PE, I am holding off on starting him on any anticoagulation. I based my decision on the conversation with radiology saying that they are hedging their call on this because of the anatomy seen on CT pulmonary angiogram and the venous Dopplers are negative. But I will let his specialist know because they may decide a different decision then me. 3. Atrial fibrillation with rapid ventricular response. He was consistently bradycardic, below 60, and I switched his metoprolol XL to metoprolol twice daily. He is also on his digoxin. Pulse is 69, 70, 63. Blood pressure is occasionally low at 108/58. I am sure he is orthostatic because I diuresed him so aggressively. Tolerating p.o. Lasix. Continue the twice daily metoprolol and daily digoxin. At discharge I will have to consider resuming his usual beta-yanique. 4. Chronic respiratory failure with hypoxemia/COPD without exacerbation. I have resumed his Brovana, budesonide, changed him to DuoNeb. He says this is working well for him. He had some rhonchi that needed clearing yesterday. On today's exam he is clear or rhonchi or wheezing. He has a prolonged exhalation phase but no distress. As such those medicines will be continued and he will resume his usual home meds at discharge. He will also be sent home on his baseline 2 L per nasal cannula oxygen. 5. Elevated troponin. Flat levels. I suspect demand ischemia from his congestive heart failure and not an NSTEMI. 6. Hypokalemia. Hypokalemic on March 16. Supplemented and normal March 17. . On March 18 he was 3.4. Supplemented. Today he is 3.9.w.
[2023-03-19] MEDS: ACETAMINOPHEN 325 MG TABLET PO PRN (21:39)
[2023-03-20] MEDS: SODIUM CHLORIDE FLUSH 0.9% 10 ML SYRINGE IVP SCH ×2 (00:58→09:30)
[2023-03-20 06:13] LABS: BASOPHILS % (AUTO) 0.4 %; EOSINOPHILS # (AUTO) 0.2 10^3/uL (0.0-0.7); HGB - HEMOGLOBIN 11.8 g/dL (14.0-18.0); LYMPHOCYTES # (AUTO) 1.4 10^3/uL (1.5-3.5); LYMPHOCYTES % (AUTO) 17.1 %; MEAN CORPUSCULAR HEMOGLOBIN 32.4 pg (27.0-31.0); MEAN CORPUSCULAR HGB CONC 32.8 g/dL (32.0-36.0); MEAN CORPUSCULAR VOLUME 98.9 fL (80.0-94.0); MEAN PLATELET VOLUME 10.3 fL (7.4-11.4); MONOCYTES # (AUTO) 0.7 10^3/uL (0.0-1.0); NEUTROPHILS # (AUTO) 5.8 10^3/uL (1.5-6.6); NEUTROPHILS % (AUTO) 71.1 %; PLT - PLATELET COUNT 166 10^3/uL (130-450); RED BLOOD COUNT 3.64 10^6/uL (4.70-6.10); RED CELL DISTRIBUTION WIDTH 12.5 % (12.0-15.0); WHITE BLOOD COUNT 8.2 x10^3/uL (4.8-10.8)
[2023-03-20 06:21] LABS: CALCIUM 8.6 mg/dL (8.5-10.3); CREATININE 0.8 mg/dL (0.6-1.2); POTASSIUM 3.7 mmol/L (3.5-5.0)
[2023-03-20] MEDS: FUROSEMIDE 40 MG TABLET PO SCH (06:35)
[2023-03-20] MEDS: LEVOTHYROXINE 125 MCG TABLET PO SCH (06:35)
[2023-03-20] MEDS: FORMOTEROL FUMARATE NEB 20 MCG/2 ML INH SCH (07:30)
[2023-03-20] MEDS: IPRATROPIUM/ALBUTEROL 3 ML NEB INH SCH (07:30)
[2023-03-20] MEDS: BUDESONIDE 0.5 MG/2 ML NEB INH SCH (07:30)
--- NOTE | 2023-03-20 07:45 | Discharge Plan ---
Discharge Plan Problem Reviewed?: Yes Disposition: Home Health Service Condition: Fair Prescriptions: Ferrous Sulfate [Feosol] 325 mg PO BIDWM #60 tab Diet: Low Sodium Activity Restrictions: Activity as Tolerated Shower Restrictions: No Driving Restrictions: Yes (no driving) Assistance Devices: [facility] Concerns: You came to the emergency room because you have been more short of breath than normal for about 3 days. May be more. You went out with your family on the day of admission and you were having lunch at a local park. You had 2 beers, then you had some trouble getting in the car and you briefly passed out. When you came to you vomited once. We made sure you are not having a heart attack. Tho se test were negative. You seem to have some congestive heart failure on your blood test and chest x-ray so we gave you some Lasix. You Wanting to Go Home. We Did Try to See If You Could Go Home but When We Checked Your Oxygen You Became Very Winded and You Had to Sit down. Your Oxygen Was Very Low at 55%. So We Had to Keep You and We Treated You for Congestive Heart Failure. That has worked really well. All the edema around her ankles has gone away. Your oxygen level has improved tremendously. I did do a work-up of your lungs and the CAT scan shows that you may be, maybe have a very small blood clot in your right lower lobe. However, your diaphragm on that side pushes up on your right lower lobe and the radiologist says that he cannot be sure if you have a blood clot or not. I then checked your legs to make sure there were no blood clots there and your legs do not have any evidence of blood clots that would break away. I need you to discuss this with your primary care provider and pullman car clerk to see if you need to go back on a blood thinner. I am aware that your blood thinner was taken away because it was associated with GI bleeding and you now have a Watchman procedure. Plan of Treatment: Please follow-up with your pullman car clerk Dr. George and your pulmonology Dr. Spann. Josie of them need to see you in the next 1-2 weeks. I would like them to give you and your an opinion about whether you should remain on blood thinners for the possibility of a small blood clot in your right lower lobe. You should also be seen to make sure that your weight is staying stable. Weigh yourself daily to make sure you are not gaining water weight. Because your Lasix needs to be adjusted. While you were here, we switched you over to Bumex. It is a more powerful diuretic than Lasix. Your is interested in switching over to Bumex once you get home. But right now, I have put you back on Lasix. It is Lasix 40 mg twice a day. Take it at 8 in the morning, and 2 PM. If you find that you keep on gaining water weight, ask your doctor to switch you to Bumex The Lasix leaches potassium out your kidneys and into your urine. As such he needed a lot of potassium while you are here. You only take Potassium 10 mEq once a day at home. I would asked that you increase that to 2 tablets a day. You and your would like to have you remain at home and be independent as possible there. You have been very clear that you never want to go to a fpc. So please work with physical therapy and Occupational Therapy through [facility] to get yourself stronger. Your will start making arrangements for down the road when you may need more caregivers and it may be more than she can do by herself. Assessment: Patient is alert, deaf, slightly forgetful. is a fierce advocate at the bedside. And between the 2 of them, he will be able to follow through with treatment plan No Smoking: If you smoke, Please STOP! Call for help. Follow-up with: Daniella Childers ARNP [Primary Care Provider] -
--- NOTE | 2023-03-20 07:59 | DISCHARGE SUMMARY ---
"Discharge Summary Admit Date: 03/16/23 Discharge Date: 03/20/23 Discharging Provider: Janny Childress MD Primary Care Provider: HENRRY Silver Code Status: Do Not Attempt Resuscitation Condition at Discharge: Fair Discharge Disposition: Home Health Service - DIAGNOSES Discharge Diagnoses with Status of Each Condition: 1. Syncope 2. 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 A-fib with RVR 4. Chronic respiratory failure with hypoxemia 5. COPD without exacerbation 6. Elevated troponin 7. Hypokalemia 8. Abnormal CT pulmonary angiogram with possible pulmonary emboli, elevated right hemidiaphragm 9. Deafness - HPI History of Present Illness: 87-year-old gentleman with history of A-fib, not anticoagulated but he has a watchman due to prior GI bleeding, COPD. He presents with his . He has been more short of breath than normal for the last 3 days or so. Today he went out with family and they were having lunch at a local pub. He had 2 beers and then was having a lot of trouble getting in the car where he ended up syncopized in brief. When aroused he did vomit once. He has nausea but denies headache, chest pain, or abdominal pain. He admits to short of breath. As per ER MD 87-year-old gentleman presents with a few days worth of shortness of breath and a syncopal episode. He has no chest pain. He is feeling okay now with the exception of some nausea. Differential diagnosis is broad. His EKG has significantly changed in the last few years, but his troponin is about the same as recent prior measurements. He had serial troponin measurements in August 2021 with very similar numbers in the low 80s. His BNP is elevated over his usual. CMP, CBC are showing chronic macrocytic anemia and mild hypokalemia. He was feeling well here and wanted to be discharged. ER MD gave him gave him a shot of 40 mg of furosemide IV and supplement his potassium and then see how he is doing up on his feet. Despite the positive troponin ER MD not worried for acute ischemia given the lack of chest pain and similar to prior values. He wanted to go home, both the and ER MD were skeptical. He received 40 mg of IV Lasix here and then he did a road test. Per the lead radiologic technologist during the road test which was on his usual home oxygen he became very winded and sats went down as low as 55. Plan to give him a DuoNeb, repeat the troponin and consult telehealth after 7 PM shift change. 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 He will be admitted for diuresis History - Past Medical History Cardiovascular: reports: Atrial fibrillation Respiratory: reports: COPD, Emphysema Neuro: reports: Peripheral neuropathy Endocrine/Autoimmune: reports: HyPOthyroidism GI: reports: None : reports: Nocturia, Frequency Psych: reports: Anxiety Musculoskeletal: reports: Osteoarthritis Derm: reports: Other MRSA Hx?: No - Past Surgical History General: reports: Colonoscopy Ortho: reports: Arthroscopic surgery HEENT: reports: Cataracts - CONSULTS | PROCEDURES Procedures: Head CT done for syncope has no acute intracranial abnormality. Mild chronic microvascular ischemic changes and age-related parenchymal volume loss Chest x-ray on admission without acute cardiopulmonary process. He has elevation of the right hemidiaphragm which is similar when compared to prior exams. No airspace consolidation. No effusion or pneumothorax. Chest/thorax CT angiogram has volume loss in the right lung base with some motion artifact and there is a possible subsegmental clot in the basilar pulmonary arterial branch. Left atrial appendage exclusion device. Moderate coronary artery calcifications. Borderline mediastinal lymph node in the prevascular region, nonspecific. Moderate hiatal hernia. Calcified gallstones in the gallbladder. - HOSPITAL COURSE Hospital Course: Dividers attributed his acute on chronic systolic heart failure to A-fib with RVR. He has had 3 could echocardiograms in our system and he has severe aortic sclerosis but no stenosis. He has a normal ejection fraction. Mildly elevated pulmonary pressures. Because his hypoxia was out of proportion to what I was seeing on physical exam and objective findings, without a history of severe chronic respiratory failure, I did a CT angiogram and found him to have a possible small right PE. But compression of the right lower lobe was present due to elevated hemidiaphragm. Radiology felt it was difficult to call the PE because of the anatomy and the compression. I did a venous Doppler of his legs and there were no DVTs. I explained all of this to his . Explained that I was conflicted about anticoagulating him because of his previous GI bleed. That GI bleed resulted in his Eliquis being discontinued and a Watchman procedure being done because of his A-fib and stroke risk. I told her we were back at that same place again. Anticoagulation was going to be changes for him. Beckayley reynoso I could not find any of the DVTs on his legs, I opted not to formally anticoagulate him. I explained all of this to the . To diurese him he was put on Bumex here. He had a good response with brisk diuresis. His really wanted us to send him home on Bumex. I explained to her that I like to send him home on his usual Lasix and if that does not work out to let his primary care provider know that Bumex worked for him. His atrial fibrillation was too controlled. He was consistently bradycardic below 60. As such I switched his metoprolol XL to metoprolol short acting twice a day. Blood pressure was low, and he was consistently bradycardic. I ended up sending him home on Lopressor 50 mg twice daily. At discharge she was an alert oriented elderly gentleman. Oriented to self and to situation. But easily forgetful. Low hoarse voice. Shotty neck adenopathy but supple neck. Lungs clear. Irregular rate and rhythm with a systolic ejection murmur. Abdomen soft nontender, no organomegaly. He is able to ambulate in the room with a standby assist. I am sending him home with home health because he is impulsive, deconditioned. I would like him to get PT and OT. I also like him to see his primary care provider in follow-up. Greater than 30 minutes spent coordinating discharge This document was made in part using voice recognition software. While efforts are made to proofread this document, sound alike and grammatical errors may occur. - ALLERGIES Allergies/Adverse Reactions: Allergies Allergy/AdvReac Type Severity Reaction Status Date / Time No Known Drug Allergies Allergy Verified 03/16/23 15:46 - MEDICATIONS Home Medications: Ambulatory Orders Medication Instructions Recorded Confirmed Levothyroxine Sodium [Tirosint] 125 mcg PO QDAC 01/29/13 03/17/23 Arformoterol Tartrate [Brovana] 15 mcg NEB BID 08/09/19 03/17/23 Budesonide 0.5 mg INH BID 08/09/19 03/17/23 Ipratropium/Albuterol [Duoneb] 3 ml INH DAILY 08/09/19 03/17/23 clonazePAM [Clonazepam] 1 mg PO ONCE PRN 08/09/19 03/17/23 Albuterol Sulfate [Proair Hfa 1 puffs PO PRN PRN 02/15/21 03/17/23 Inhaler] Cholecalciferol (Vitamin D3) 50 mcg PO BID 02/15/21 03/17/23 [Vitamin D3] Sertraline [Zoloft] 100 mg PO DAILY 02/18/21 03/17/23 Digoxin [Lanoxin] 125 mcg PO DAILY #30 tablet 02/19/21 03/17/23 Metoprolol Tartrate [Lopressor] 50 mg PO BID #60 tablet 02/19/21 03/17/23 Acetaminophen [Tylenol] 1,000 mg PO BID 03/17/23 03/17/23 Aspirin Chewable [St Benny 81 mg PO DAILY 03/17/23 03/17/23 Aspirin] Cyanocobalamin (Vitamin B-12) 1,000 mcg PO MOFR 03/17/23 03/17/23 [Vitamin B-12 (1000 mcg sublingual)] Pantoprazole Sodium [Protonix] 20 mg PO DAILY 03/17/23 03/17/23 Potassium Chloride 10 meq PO DAILY 03/17/23 03/17/23 Ferrous Sulfate [Feosol] 325 mg PO BIDWM #60 tab 03/20/23 Furosemide [Lasix] 40 mg PO BID #30 tab 03/20/23 03/17/23 - LABS Result Diagrams: 03/20/23 04:46 03/20/23 04:46 - SEPSIS Current Stage of Sepsis: Ruled out"
[2023-03-20] MEDS: CHOLECALCIFEROL 25 MCG TABLET PO SCH (09:28)
[2023-03-20 09:29] VITALS: BP 109/68
[2023-03-20] MEDS: PANTOPRAZOLE 40 MG TABLET PO SCH (09:29)
[2023-03-20] MEDS: POTASSIUM CHLORIDE 10 MEQ CAPSULE PO SCH (09:29)
[2023-03-20] MEDS: CYANOCOBALAMIN 500 MCG TABLET PO SCH (09:29)
[2023-03-20] MEDS: METOPROLOL TARTRATE 50 MG TABLET PO SCH (09:29)
[2023-03-20] MEDS: DIGOXIN 125 MCG TABLET PO SCH (09:29)
[2023-03-20] MEDS: FERROUS SULFATE 325 MG TABLET PO SCH (09:29)
[2023-03-20] MEDS: SERTRALINE 50 MG TABLET PO SCH (09:30)
== END 2023-03-20 12:00 | disposition home health service (06) | DRG 291 ==
LOC: ED 15:24 → MS2 19:22
PROVIDERS: ADMIT Internal Medicine; ATTEND Specialist
DX: I50.33 Acute on chronic diastolic (congestive) heart failure (principal); I26.99 Other pulmonary embolism without acute cor pulmonale; J96.11 Chronic respiratory failure with hypoxia; R55 Syncope and collapse; I48.91 Unspecified atrial fibrillation; J43.9 Emphysema, unspecified; R77.8 Other specified abnormalities of plasma proteins; Z20.822 Contact with and (suspected) exposure to COVID-19; I45.10 Unspecified right bundle-branch block; E87.6 Hypokalemia; H91.90 Unspecified hearing loss, unspecified ear; Z95.818 Presence of other cardiac implants and grafts; D53.9 Nutritional anemia, unspecified; G62.9 Polyneuropathy, unspecified; E03.9 Hypothyroidism, unspecified; F41.9 Anxiety disorder, unspecified; J98.6 Disorders of diaphragm; R00.1 Bradycardia, unspecified; Z87.891 Personal history of nicotine dependence; R41.0 Disorientation, unspecified; R53.1 Weakness; I27.81 Cor pulmonale (chronic); Z99.81 Dependence on supplemental oxygen
CPT/HCPCS: 36415; 70450; 71045; 71275; 80048; 80053; 80162; 82607; 82803; 83735; 83880; 84100; 84484; 85025; 87633; 93005; 93970; 94640; 96374; 99285; A9270; G0480; J7626; Q9967; 80320

== ENCOUNTER 2023-04-12 14:39 | Outpatient (CLI) | payer MEDICARE ==
[2023-04-12 14:52] LABS: BASOPHILS % (AUTO) 0.4 %; EOSINOPHILS # (AUTO) 0.1 10^3/uL (0.0-0.7); EOSINOPHILS % (AUTO) 1.1 %; HCT - HEMATOCRIT 41.3 % (42.0-52.0); HGB - HEMOGLOBIN 12.9 g/dL (14.0-18.0); LYMPHOCYTES # (AUTO) 1.2 10^3/uL (1.5-3.5); LYMPHOCYTES % (AUTO) 13.4 %; MEAN CORPUSCULAR HEMOGLOBIN 32.2 pg (27.0-31.0); MEAN CORPUSCULAR HGB CONC 31.2 g/dL (32.0-36.0); MEAN PLATELET VOLUME 9.9 fL (7.4-11.4); MONOCYTES # (AUTO) 0.8 10^3/uL (0.0-1.0); MONOCYTES % (AUTO) 8.4 %; NEUTROPHILS # (AUTO) 7.1 10^3/uL (1.5-6.6); NEUTROPHILS % (AUTO) 76.3 %; PLT - PLATELET COUNT 192 10^3/uL (130-450); RED BLOOD COUNT 4.01 10^6/uL (4.70-6.10); RED CELL DISTRIBUTION WIDTH 12.7 % (12.0-15.0); WHITE BLOOD COUNT 9.3 x10^3/uL (4.8-10.8)
[2023-04-12 15:23] LABS: ALBUMIN 3.9 g/dL (3.2-5.5); ALBUMIN/GLOBULIN RATIO 1.2 (1.0-2.2); BILIRUBIN,TOTAL 0.8 mg/dL (0.2-1.0); CALCIUM 9.6 mg/dL (8.5-10.3); POTASSIUM 4.4 mmol/L (3.5-4.5); TOTAL PROTEIN 7.1 g/dL (6.4-8.9)
[2023-04-12 16:33] LABS: FERRITIN 46.5 ng/mL (23.9-336.2)
== END 2023-04-12 14:40 | disposition home or self-care (01) ==
LOC: LAB 14:39
PROVIDERS: ATTEND Registered Nurse
DX: I50.32 Chronic diastolic (congestive) heart failure (principal); D64.9 Anemia, unspecified
CPT/HCPCS: 36415; 80053; 82728; 83540; 83880; 84466; 85025

== ENCOUNTER 2023-05-12 14:04 | Outpatient (CLI) | payer MEDICARE ==
[2023-05-12 14:41] LABS: CALCIUM 9.6 mg/dL (8.5-10.3); POTASSIUM 4.2 mmol/L (3.5-4.5)
== END 2023-05-12 14:05 | disposition home or self-care (01) ==
LOC: LAB.R 14:04
PROVIDERS: ATTEND Registered Nurse
DX: I50.32 Chronic diastolic (congestive) heart failure (principal)
CPT/HCPCS: 80048

== ENCOUNTER 2023-08-14 15:07 | Outpatient (CLI) | payer MEDICARE ==
[2023-08-14 15:21] LABS: BASOPHILS % (AUTO) 0.4 %; EOSINOPHILS # (AUTO) 0.1 10^3/uL (0.0-0.7); EOSINOPHILS % (AUTO) 0.7 %; HCT - HEMATOCRIT 42.9 % (42.0-52.0); HGB - HEMOGLOBIN 13.7 g/dL (14.0-18.0); LYMPHOCYTES # (AUTO) 1.3 10^3/uL (1.5-3.5); LYMPHOCYTES % (AUTO) 12.1 %; MEAN CORPUSCULAR HEMOGLOBIN 31.1 pg (27.0-31.0); MEAN CORPUSCULAR HGB CONC 31.9 g/dL (32.0-36.0); MEAN CORPUSCULAR VOLUME 97.3 fL (80.0-94.0); MEAN PLATELET VOLUME 10.1 fL (7.4-11.4); MONOCYTES % (AUTO) 8.8 %; NEUTROPHILS # (AUTO) 8.5 10^3/uL (1.5-6.6); NEUTROPHILS % (AUTO) 77.6 %; PLT - PLATELET COUNT 233 10^3/uL (130-450); RED BLOOD COUNT 4.41 10^6/uL (4.70-6.10); RED CELL DISTRIBUTION WIDTH 14.8 % (12.0-15.0)
[2023-08-14 15:55] LABS: THYROID STIMULATING HORMONE 9.12 uIU/mL (0.34-5.60)
[2023-08-14 16:24] LABS: CALCIUM 9.6 mg/dL (8.5-10.3); CREATININE 0.9 mg/dL (0.6-1.3); POTASSIUM 3.3 mmol/L (3.5-4.5)
== END 2023-08-14 15:08 | disposition home or self-care (01) ==
LOC: LAB 15:07
PROVIDERS: ATTEND Registered Nurse
DX: I50.42 Chronic combined systolic (congestive) and diastolic (congestive) heart failure (principal); E03.9 Hypothyroidism, unspecified
CPT/HCPCS: 36415; 80048; 84439; 84443; 85025

== ENCOUNTER 2023-09-27 02:41 | Outpatient (CLI) | payer MEDICARE | END 2023-09-27 02:42 | disposition E | LOC: EMS 02:41 ==